=== PATIENT | female | born 1950 | race Caucasian/White ===

== ENCOUNTER 2016-10-20 17:37 | Emergency (ER) | payer OTHER ==
[~2016-10-20] VITALS: Ht 165.1 cm; Wt 71.4 kg
[~2016-10-20 17:37] MED LIST: ASPI325T45 PO; ATOR-22 PO; ATV/1 PO; CTP/1 PO; GLUC10007 PO; HYZ/10015 PO; LEVO25TA5 PO; MULT-506 PO; OMEG10007 PO; OXYC-57 PO; PARO1TAB29 PO
[2016-10-20 18:07] VITALS: TEMP 36.8; Ht 165.1 cm; Wt 71.4 kg
[2016-10-20] MEDS ORDERED: CYCLOBENZAPRINE HCL 5 MG TAB PO STA (19:39)
--- NOTE | 2016-10-20 19:48 | EMERGENCY ROOM VISIT NOTE ---
History Report prepared by Anders: Delma Valencia Under the Supervision of: Dr. Fidel Altamirano M.D. First contact with patient: 19:31 Chief Complaint: SWELLING TO EXTREMITY Stated Complaint: L ANKLE SWOLEN History of Present Illness The patient is a 66 year old female who presents to the Emergency Room with complaints of constant left foot swelling beginning 4 days ago. The patient states that she has been having issues with foot swelling over the summer that have worsened over the last 4 days. She reports that she takes a diuretic and is used to foot swelling but her left foot has been significantly worse. She notes that she does not wear compression socks. The patient complains of foot spasms. She states that she called her PCP and was told to come in for concern of DVT. Source of History: patient Onset: 4 days ago Position: foot (left) Quality: other (swelling) Timing: constant Note: Pt complains of foot spasms. Review of Systems See HPI for pertinent positives & negatives. A total of 10 systems reviewed and were otherwise negative. Past Medical & Surgical Medical Problems: (1) Alcohol Abuse-Unspec (2) Arterial Disease Nos (3) Carotid artery disease (4) Carotid Artery Occlusion W O Cerebral Infarction (5) Depression (6) Depressive Disorder Nec (7) Diverticulosis Colon (W/O Ment Of Hemorrhage) (8) Dyslipidemia (9) Gout (10) Gout Nos (11) History of colonic polyps (12) Hypertension (13) Hypertension Nos (14) Irritable Bowel Syndrome (15) Long-Term (Current) Use Of Aspirin (16) Tobacco Use Disorder Surgical Problems: (1) History of carotid endarterectomy (2) S/P carotid endarterectomy Family History No pertinent family history stated. Social History Smoking Status: Current Every Day Smoker Marital Status: Housing Status: lives with significant other Occupation Status: unemployed Current/Historical Medications Scheduled Aspirin (Aspirin), 1 TAB PO DAILY Atorvastatin (Lipitor), 20 MG PO HS Clonidine Hcl (Catapres), 0.1 MG PO BID Glucosamine Sulfate (Glucosamine), 1,000 MG PO BID Hctz/Losartan (Hyzaar 25MG/100MG), 1 TAB PO QAM Levothyroxine Sodium (Levothyroxine Sodium), 1 TAB PO QAM Multivitamin (Multivitamin), 1 TAB PO NOON Paroxetine (Paxil), 40 MG PO QAM Scheduled PRN Fish Oil ([place]-3), 1 CAP PO DAILY PRN Lorazepam (Ativan), 0.5-1 MG PO TID PRN Oxycodone/Acetaminophen 5MG/325MG (Percocet 5MG/325MG), 1-2 TABLETS PO Q4H PRN for Pain Oxycodone/Acetaminophen 5MG/325MG (Percocet 5MG/325MG), 1-2 TAB PO Q4H PRN for Pain Allergies Coded Allergies: Nickel (Unverified Allergy, Mild, Rash, itchy, 09/20/14) Physical Exam Vital Signs Date Time Temp Pulse Resp B/P (MAP) Pulse Ox O2 Delivery O2 Flow Rate FiO2 10/20/16 23:28 170/95 10/20/16 22:20 90 20 167/94 97 Room Air 10/20/16 20:30 92 18 166/91 99 Room Air 10/20/16 18:07 36.8 93 18 170/97 97 Room Air Physical Exam GENERAL: Patient is a healthy-appearing well-nourished female HEAD: Normocephalic atraumatic EYES: Ocular movements intact pupils equal and react to light OROPHARYNX mucous membranes are moist no exudates present no erythema or edema present NECK: Supple no nuchal rigidity CHEST: Good equal expansion LUNGS: Clear and equal to auscultation CARDIAC: Normal S1 and S2 ABDOMEN: Soft nontender no guarding BACK: No CVA tenderness EXTREMITIES: No pain upon palpation normal muscle strength in all groups no clubbing cyanosis. NEURO: Patient is following commands and answering questions appropriately. Alert and oriented x3 Cranial Nerves 2-12 grossly intact Medical Decision & Procedures ER Provider Diagnostic Interpretation: Radiology results as stated below per my review and radiologist interpretation: LEFT LOWER EXTREMITY VENOUS DOPPLER FINDINGS: There is normal compressibility, flow, and augmentation within the left lower extremity deep venous system. IMPRESSION: No DVT within the left lower extremity. Electronically signed by: Andre Hargrove M.D. 10/20/2016 10:03 PM Dictated Date/Time: 10/20/2016 10:02 PM LEFT ANKLE 3 VIEWS FINDINGS: There is no fracture or dislocation. Soft tissue swelling. No radiopaque foreign bodies. Small plantar heel spur. Calcification at the distal attachment of the Achilles tendon. IMPRESSION: No fractures. Soft tissue swelling. Electronically signed by: Andre Hargrove M.D. 10/20/2016 10:58 PM Dictated Date/Time: 10/20/2016 10:57 PM Laboratory Results Labs reviewed by ED physician. Medications Administered Medications (Trade) Dose Ordered Sig/Jennifer Route Start Time Stop Time Status Last Admin Dose Admin Cyclobenzaprine HCl (Flexeril Tab) 5 mg NOW STAT PO 10/20/16 19:39 10/20/16 19:41 DC 10/20/16 20:15 5 MG Oxycodone/ Acetaminophen (Percocet 5-325mg Tab) 1 tab NOW ONCE PO 10/20/16 22:15 10/20/16 22:16 DC 10/20/16 22:46 1 TAB Oxycodone/ Acetaminophen (Percocet 5/ 325MG Home Pack) 1 homepack UD ONCE PO 10/20/16 22:45 10/20/16 22:46 DC 10/20/16 23:25 1 HOMEPACK ED Course 1930: Past medical records reviewed. The patient was evaluated in room A4B. A complete history and physical examination was performed. 1938: Flexeril Tab 5mg PO. 2214: Oxycodone/Acetaminophen 1 tab PO. 2220: Dilaudid Inj 0.5mg IV, Solu-Medrol IV 60mg IV. 5: Oxycodone/Acetaminophen 1 homepack PO. 2303: Upon reexamination the patient is doing well. I discussed results and treatment plan with the patient. She verbalizes agreement and understanding. The patient is ready for discharge. Medical Decision Differential diagnosis: Etiologies such as DVT, musculoskeletal, infection, joint effusion, trauma, lymphedema, idiopathic, CHF, as well as others were entertained. This is a 66-year-old female who presents emergency department complaining of left ankle swelling. Using shared medical decision making with the patient the patient is concerned that she has a DVT in her left extremity. Based on this the patient was sent for an ultrasound which did not show any evidence of acute DVT. The patient was also given Flexeril with no improvement in her symptoms. After finding out that the patient did not have DVT patient and her family asked for further laboratory work however the patient then refused this. Her x- ray does not show any evidence of acute fracture dislocation. There is no evidence of cellulitis and the patient is afebrile. She does have a history of gout and it is possible that this is the whole issue. She was given Percocet for the pain in the emergency department and I recommended follow-up with orthopedic surgery. Patient and family were in agreement with the treatment plan. Medication Reconcilliation Current Medication List: was personally reviewed by me Blood Pressure Screening Patient's blood pressure: Elevated blood pressure Blood pressure disposition: Elevated BP felt to be situational Impression Primary Impression: Ankle pain Scribe Attestation The scribe's documentation has been prepared under my direction and personally reviewed by me in its entirety. I confirm that the note above accurately reflects all work, treatment, procedures, and medical decision making performed by me. Departure Information Dispostion Home / Self-Care Prescriptions Oxycodone/Acetaminophen 5MG/325MG (PERCOCET 5MG/325MG) Tab 1-2 TAB PO Q4H Y for Pain, #14 TAB Prov: Fidel Altamirano MD 10/20/16 Referrals Demetra Bowman D.O. (PCP) Forms HOME CARE DOCUMENTATION FORM, IMPORTANT VISIT INFORMATION, WORK / SCHOOL INSTRUCTIONS Patient Instructions ED Contusion Lower Ext, My [facility] Additional Instructions Follow up with DR Romero's office You were found to have an elevated blood pressure today (>120 sytolic or >90 diastolic). Per medicare guidelines, you need to follow up with this blood pressure screening with your Primary Care Physician (PCP). For a new PCP call [phone]. You received narcotic or benzodiazepene medication while in the emergency room today. Do not drive, operate heavy machinery, or drink alcohol under the influence of this medication. Take 600 mg Ibuprofen every 6 hours Take Percocet for breakthrough pain You have been examined and treated today on an emergency basis only. This is not a substitute for, or an effort to provide, complete comprehensive medical care. It is impossible to recognize and treat all injuries or illnesses in a single emergency department visit. It is therefore important that you follow up closely with Dr Edwards. Call as soon as possible for an appointment. Thank you for your time and consideration. I look forward to speaking with you again soon. Please don't hesitate to call us if you have any questions. Problem Qualifiers Primary Impression: Ankle pain Chronicity: acute Laterality: left Qualified Codes: M25.572 - Pain in left ankle and joints of left foot
--- NOTE | 2016-10-20 22:04 | DIAGNOSTIC IMAGING REPORT ---
LEFT LOWER EXTREMITY VENOUS DOPPLER HISTORY: Left leg swelling. COMPARISON STUDY: None. FINDINGS: There is normal compressibility, flow, and augmentation within the left lower extremity deep venous system. IMPRESSION: No DVT within the left lower extremity. Electronically signed by: Andre Hargrove M.D. 10/20/2016 10:03 PM Dictated Date/Time: 10/20/2016 10:02 PM
[2016-10-20] MEDS ORDERED: OXYCODONE/ACETAMINOPHEN 5-325 TAB PO ONE (22:15)
[2016-10-20 22:20] VITALS: PULSE 90; O2SAT 97
[2016-10-20] MEDS ORDERED: HYDROmorphone INJ 0.5 MG/0.5 ML SYR IV STA (22:21)
[2016-10-20] MEDS ORDERED: METHYLPREDNISOLONE 125 MG VIAL IV STA (22:21)
[2016-10-20] MEDS ORDERED: PERCOCET HOME PACK PO ONE (22:45)
[2016-10-20] MEDS ORDERED: OXYC-57 PO (22:50)
--- NOTE | 2016-10-20 22:59 | DIAGNOSTIC IMAGING REPORT ---
LEFT ANKLE 3 VIEWS HISTORY: Pt c/o left ankle pain COMPARISON: None. FINDINGS: There is no fracture or dislocation. Soft tissue swelling. No radiopaque foreign bodies. Small plantar heel spur. Calcification at the distal attachment of the Achilles tendon. IMPRESSION: No fractures. Soft tissue swelling. Electronically signed by: Andre Hargrove M.D. 10/20/2016 10:58 PM Dictated Date/Time: 10/20/2016 10:57 PM
[2016-10-20 23:28] VITALS: BP 170/95
== END 2016-10-20 23:29 | disposition home or self-care (01) ==
LOC: C.EDB 17:37 → C.EDA 23:29
DX: M25.571 Pain in right ankle and joints of right foot (principal); I10 Essential (primary) hypertension; E78.5 Hyperlipidemia, unspecified; K57.30 Diverticulosis of large intestine without perforation or abscess without bleeding; I25.10 Atherosclerotic heart disease of native coronary artery without angina pectoris; K58.9 Irritable bowel syndrome, unspecified; F32.9 Major depressive disorder, single episode, unspecified; M10.9 Gout, unspecified; F17.200 Nicotine dependence, unspecified, uncomplicated; Z86.010 Personal history of colon polyps; Z79.82 Long term (current) use of aspirin; Z79.899 Other long term (current) drug therapy; Z98.890 Other specified postprocedural states; Z91.09 Other allergy status, other than to drugs and biological substances

== ENCOUNTER 2018-11-15 18:39 | Inpatient (IN) ==
--- OUTSIDE RECORDS SUMMARY | 2018-11-15 18:42 | External Medical Summary | Continuity of Care Document ---
:1950 Author Name Michael M.DGaurang Address Unavailable Unavailable , Care Team Providers Name Role Phone Unavailable Unavailable Unavailable Jade MARTÍNEZ Unavailable [email or web address] Problems Asymptomatic Postmenopausal Status (V49.81) Colonoscopy (Fiberoptic) Screening Vaginitis (616.10) (N76.0) Hypertension (401.9) (I10) Postmenopausal bleeding (627.1) (N95.0) Carotid artery stenosis (433.10) (I65.29) Postmenopausal atrophic vaginitis (627.3) (N95.2) Arthritis (716.90) (M19.90) Tubular adenoma of colon (211.3) (D12.6) Hypercholesterolemia (272.0) (E78.00) Benign colonic polyp (211.3) (K63.5) Encounter for routine gynecological examination (V72.31) (Z0 1.419) Allergies and Adverse Reactions No Known Drug Allergies (Allergy) Medications Lipitor 20 MG Oral Tablet , M.D. Refills: 0 cloNIDine HCl - 0.1 MG Oral Tablet , M.D. Refills: 0 Hyzaar 100-25 MG Oral Tablet , M.D. Refills: 0 PARoxetine HCl - 40 MG Oral Tablet , M.D. Refills: 0 Lasix 20 MG Oral Tablet , M.D. Refills: 0 LORazepam TABS , M.D. Refills: 0 Premarin 0.625 MG/GM Vaginal Cream; Inse rt 1/4 of applicator of cream vaginally three evenings per week. Apply thin film externally on same evenings. MAURICIO Hansen Start: 12-Oct-2012 Quantity: 1 Refills: 1 Multiple Vitamins Oral Tablet , M.D. Refills: 0 Fish Oil CAPS , M.D. Refills: 0 Aspirin 325 MG Oral Tablet; TAKE 1 TABLET DAILY. , M.D. Refills: 0 Estrace 0.1 MG/GM Vaginal Cream; INSERT 1/4 APPLICATORFUL (1GRAM) VAGINALLY TWICE WEEKLY MAURICIO Hansen Start: 08-Oct-2012 Quantity: 1 Refills: 0 Azithromycin 500 MG Oral Tablet; Take both tablets now as a single dose. MAURICIO Hansen Start: 08-Oct-2012 Quantity: 2 Refills: 0 Procedures History of Tubal Ligation Status: Comple eldon History of Oral Surgery Tooth Extraction Status: Completed History of Complete Colonoscopy Status: Completed Immunizations Immunizations not documented Social History - Smoking Status Unknown if ever smoked Former smoker Plan of Treatment Planned Observations Planned Goals not documented Results No Known Results Results not documented
[2018-11-15] MEDS ORDERED: HydrALAZINE HCL 20 MG/ML VIAL IV STA (19:02)
[2018-11-15] MEDS ORDERED: SODIUM CHLORIDE 0.9% 1000ML 1,000 ML IV SCH (19:15)
[2018-11-15 19:17] LABS: Basophils # (auto) 0.04 K/uL (0-0.2); Basophils % (auto) 0.3 %; Eosinophils # (auto) 0.21 K/uL (0-0.5); Eosinophils % (auto) 1.6 %; Hematocrit (blood only) 44.4 % (37-47); Hemoglobin 15.9 g/dL (12.0-16.0); Immature Granulocytes # (auto) 0.05 K/uL (0.00-0.02); Immature Granulocytes % (auto) 0.4 %; Lymphocytes # (auto) 3.99 K/uL (1.2-3.4); Lymphocytes % (auto) 30.6 %; Mean Corpuscular Hemoglobin 34.5 pg (25-34); Mean Corpuscular Hgb Conc 35.8 g/dL (32-36); Mean Corpuscular Volume 96.3 fL (80-100); Mean Platelet Volume 9.6 fL (7.4-10.4); Monocytes # (auto) 1.51 K/uL (0.11-0.59); Monocytes % (auto) 11.6 %; Neutrophils # (auto) 7.24 K/uL (1.4-6.5); Neutrophils % (auto) 55.5 %; Platelet Count 409 K/uL (130-400); RDW Coefficient of Variation 13.5 % (11.5-14.5); Red Blood Count 4.61 M/uL (4.2-5.4); White Blood Count 13.04 K/uL (4.8-10.8)
--- NOTE | 2018-11-15 19:20 | CT Scan Report ---
CT head/brain wo con CLINICAL HISTORY: Strokelike symptoms COMPARISON STUDY: No previous studies for comparison. TECHNIQUE: Axial CT of the brain is performed from the vertex to the skull base. IV contrast was not administered for this examination. A dose lowering technique was utilized adhering to the principles of ALARA. CT DOSE: 537.48 mGy.cm FINDINGS: No intra or extra-axial mass lesions are visualized. There is no CT evidence of acute cortical infarc tion. There is no evidence of midline shift. There is no acute hemorrhage. No calvarial fractures ar e visualized. There are patchy white matter hypodensities likely on a small vessel basis. There is no evidence of pathologic ventricular dilatation. There is no evidence of acute sinusitis IMPRESSION: No acute intracranial findings Electronically signed by: Coy Barreto M.D. 11/15/2018 7:18 PM
[2018-11-15 19:27] LABS: INR 0.9 (0.9-1.1); Partial Thromboplastin Ratio 0.9; Partial Thromboplastin Time 25.5 Seconds (21.0-31.0); Prothrombin Time 9.4 Seconds (9.0-12.0)
[2018-11-15 19:33] LABS: Alanine Aminotransferase 19 U/L (12-78); Albumin Level 4.1 gm/dl (3.4-5.0); Aspartate Aminotransferase 16 U/L (15-37); BUN Creatinine Ratio 23.2 (10-20); Blood Urea Nitrogen 18 mg/dl (7-18); Calcium 9.8 mg/dl (8.5-10.1); Carbon Dioxide 25 mmol/L (21-32); Chloride 98 mmol/L (98-107); Creatinine Clr Calc Pharmacy 73.3 ml/min; Est GFR (African American) 94.1; Est GFR (Non-African American) 81.2; Glucose 96 mg/dl (70-99); Magnesium 2.2 mg/dl (1.8-2.4); Potassium 3.4 mmol/L (3.5-5.1); Sodium 133 mmol/L (136-145)
[2018-11-15 19:38] LABS: Alkaline Phosphatase 137 U/L (45-117); Bilirubin,Total 0.4 mg/dl (0.2-1); Globulin 4.1 gm/dl (2.5-4.0); Total Protein 8.2 gm/dl (6.4-8.2); Troponin I < 0.015 ng/ml (0-0.045)
[2018-11-15] MEDS ORDERED: LABETALOL HCL IV 5 MG/ML 20ML IV STA (20:07)
[2018-11-15] MEDS ORDERED: ALTEPLASE For Stroke IV STA (20:44)
[2018-11-15] MEDS ORDERED: ALTEPLASE BOLUS IV ONE (20:54)
[2018-11-15] MEDS ORDERED: ALTEPLASE, RECOMBINANT 62 MG in EMPTY BAG 0 ML IV ONE (20:55)
[2018-11-15] MEDS ORDERED: PRIMARY PLUMSET, PE LINED TUBING, 113 IN, NON-DEHP (2260-0500) IV ONE (20:55)
[2018-11-15] MEDS ORDERED: ACETAMINOPHEN 1,000 MG/100 ML VIAL IV STA (21:20)
[2018-11-15] MEDS ORDERED: OPTIRAY 320 125ml IV PRN (21:35)
--- NOTE | 2018-11-15 22:08 | CT Scan Report ---
CT angio neck with con CLINICAL HISTORY: Suspected acute stroke COMPARISON STUDY: July 2012 TECHNIQUE: CT angiography was performed from the aortic arch to the skull base. MIP imaging was perfo rmed. The patient was scanned in a dynamic helical fashion during intravenous administration of 117 c c of Optiray 320. A dose lowering technique was utilized adhering to the principles of ALARA. CT DOSE: Technique: CT angiogram of the carotid and vertebral arteries was obtained using intravenous contrast and 3-D reconstruction. NASCET criteria was utilized. Findings: The right carotid revealed atheromatous changes involving the bifurcation and proximal internal carot id artery without evidence of hemodynamic significant stenosis. There is no evidence of dissection. The left carotid revealed a small ulcerated plaque at the there is no evidence of dissection. Level o f the carotid bulb. There are mild atheromatous changes. There is no evidence of hemodynamic signific ant stenosis. There is no evidence of vertebral artery occlusion. There is no evidence of dissection. There are are as of mild vertebral narrowing due to bilateral facet joint arthropathy with secondary narrowing of t he foramen transversarium IMPRESSION: No evidence of hemodynamically significant carotid or vertebral artery stenosis. No evidence of disse ction. Electronically signed by: Coy Barreto M.D. 11/15/2018 10:06 PM
--- NOTE | 2018-11-15 22:11 | CT Scan Report ---
CT angio head w con CLINICAL HISTORY: Acute stroke TECHNIQUE: CT angiography of the head was performed in a dynamic helical fashion during intravenous a dministration of 117 cc of Optiray 320. MIP imaging was performed. A dose lowering technique was util ized adhering to the principles of ALARA. CT DOSE: 579.21 mGy.cm COMPARISON STUDY: Noncontrast head CT dated 11/15/2018 FINDINGS: There are no lesion suspicious for aneurysm. There are no major intracranial branch occlusi ons. The dural venous sinuses appear patent. IMPRESSION: No significant abnormalities identified. Electronically signed by: Coy Barreto M.D. 11/15/2018 10:10 PM
[2018-11-15] MEDS ORDERED: POTASSIUM CHLORIDE / WTR 10 MEQ/100 ML PLCT IV ONE (22:30)
--- NOTE | 2018-11-15 22:40 | Emergency Department Note ---
Entered by Darleen Suazo acting as a scribe for Kristine Zhong MD History of Present Illness General Chief complaint: Neuro Symptoms/Deficit Stated complaint: CVA SX Source: patient Mode of arrival: ambulatory Limitations: no limitations History of Present Illness Provider complaint: Stroke symptoms Onset (ago): hour(s) (around 1744 today) 1 Pain Consistency: + other (episode) Quality: + other (stroke symptoms) Associated symptoms: + headaches and + other (Additional symptoms: hand numbness, difficulty speaking, difficulty remembering. Denies: abdominal pain); no chest pain, no shortness of breath and no weakness Treatments prior to arrival: none The patient is a 68 year old female with a history of hypertension, dyslipidemia, CAD, gout, depression, colonic polyps, and a bilateral carotid e ndarterectomy who presents to the Emergency Room with complaints of an episode of stroke symptoms occurring around 1744 today. The patient reports that she returned home from shopping at [facility] and was putting groceries away when she dropped her cigarette and her hand went numb. She states that she then noticed difficulty speaking, and she notes that she could not express her cat's name or speak in a way that her could understand her. The patient currently complains of a headache, some difficulty remembering, and some persistent speech difficulty, but she denies any shortness of breath, chest pain, abdominal pain, and weakness. She reports that she went to her PCP earlier today and that there were no problems. She indicates that her blood pressure has been controlled recently. Home Medications Home Medications Medication Instructions Recorded Confirmed Type allopurinol 300 mg PO DAILY 11/15/18 11/15/18 History aspirin 325 mg PO DAILY 11/15/18 11/15/18 History atorvastatin 80 mg PO HS 11/15/18 11/15/18 History clonidine HCl 0.1 mg PO BID 11/15/18 11/15/18 History levothyroxine 50 mcg PO QAM 11/15/18 11/15/18 History paroxetine HCl 20 mg PO DAILY 11/15/18 11/15/18 History potassium chloride 10 meq PO DAILY 11/15/18 11/15/18 History Allergies Allergy/AdvReac Type Severity Reaction Status Date / Time nickel Allergy Mild Rash, itchy Unverified 11/15/18 19:55 Past Med/Surg History Medical History Hypertension (Chronic) Dyslipidemia (Chronic) Gout (Chronic) Carotid artery disease (Chronic) Depression (Chronic) History of colonic polyps (Chronic) S/P tubal ligation Surgical History History of carotid endarterectomy (Chronic) S/P wisdom tooth extraction Family History Mother Hypertension Dementia Dyslipidemia Father , age 70 of leukemia. 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 and A total of 10 systems reviewed and were otherwise negative Physical Exam Vital Signs Vital Signs - 24 hr 11/16/18 01:45 11/16/18 02:00 11/16/18 02:15 Pulse Rate 84 93 H 87 Pulse Rate from SpO2 Sensor 84 93 H 86 Respiratory Rate 20 21 24 Blood Pressure 140/63 149/82 H 152/73 H Blood Pressure Mean 88 104 99 Pulse Oximetry 97 94 96 Oxygen Delivery Method Nasal Cannula Nasal Cannula Nasal Cannula Oxygen Flow Rate 2 2 2 11/16/18 02:30 11/16/18 02:45 11/16/18 03:00 Pulse Rate 90 86 Pulse Rate from SpO2 Sensor 89 90 88 Respiratory Rate 24 20 24 Blood Pressure 129/91 132/68 145/64 H Blood Pressure Mean 103 89 91 Pulse Oximetry 96 94 98 Oxygen Delivery Method Nasal Cannula Nasal Cannula Nasal Cannula Oxygen Flow Rate 2 2 2 Vital signs reviewed. General: Generally well-appearing female, in no significant distress. HEENT: No scleral icterus, PERRLA, neck supple. Atraumatic. Cardiovascular: Regular rate and rhythm, no extra sounds. Pulmonary: Clear to auscultation bilaterally, normal work of breathing. Abdomen: Soft, nontender, nondistended, positive bowel sounds. Musculoskeletal: Atraumatic, no peripheral edema. Neurologic: Patient awake alert and oriented x 3, full strength in all 4 extrem ities. Cranial nerves 2 through 12 grossly intact. Subtle expressive aphasia/word finding difficulty. Ambulates without difficulty. No pronator drift. Intact finger to nose. Skin: Warm, dry, no rash Course 1842: At this time the patient was evaluated by the medical student, Makayla Rodriguez. The medical student's findings were discussed with me. We discussed a possible treatment plan and differential diagnoses for the patient. 1853: The patient was evaluated in room C11A, and a complete history and physical examination were performed. 2009: I checked on the patient and she is now stuttering and demonstrating some expressive aphasia. 2013: I reviewed the case with Dr. Quinonez - Loida Aldrich. Dr. Quinonez will evaluate the patient. 2023: The patient was moved to room B1 at this time. 2041: I reviewed the case with Dr. Quinonez again. 2201: I checked on the patient and she is feeling better but still complaining of some headache. She will receive some Tylenol. 2228: I reviewed the patient's case with Dr. Rosen - Merry. Dr. Rosen will evaluate the patient for further management. Reevaluation(s) Reevaluation #1: I reviewed the case with Dr. Quinonez - Loida Aldrich. Dr. Quinonez will evaluate the patient. Time: 20:14 Reevaluation #2: I reviewed the case with Dr. Quinonez again. Time: 20:42 Reevaluation #3: I reviewed the patient's case with Dr. Silas Sousa. Dr. Rosen will evaluate the patient for further management. Time: 22:28 Administered Medications Acetaminophen (Tylenol) 320 mg PO Q4H PRN PRN Reason: Pain Stop: 12/16/18 05:52 Last Admin: 11/16/18 15:18 Dose: 320 mg Documented by: [id number] Admin: 11/16/18 06:20 Dose: 320 mg Documented by: [id number] Allopurinol (Zyloprim) [address] Stop: 12/16/18 08:59 Last Admin: 11/16/18 09:57 Dose: 300 mg Documented by: [id number] Atorvastatin Calcium (Lipitor) [address] Stop: 12/16/18 20:59 Last Admin: 11/16/18 20:16 Dose: 80 mg Documented by: [id number] Nicardipine HCl 25 mg/ Sodium (Chloride) 250 mls @ 0 mls/hr IV .Q0M RD; P rotocol Stop: 12/15/18 20:59 Last Admin: 11/16/18 09:58 Dose: Not Given Documented by: [id number] Titration: 11/16/18 04:36 Dose: 0 mg/hr, 0 mls/hr Documented by: [id number] Titration: 11/16/18 02:42 Dose: 0 mg/hr, 0 mls/hr Documented by: [id number] Titration: 11/16/18 00:50 Dose: 2.5 mg/hr, 25 mls/hr Documented by: [id number] Titration: 11/15/18 21:45 Dose: 5 mg/hr, 50 mls/hr Documented by: [id number] Titration: 11/15/18 21:13 Dose: 7.5 mg/hr, 75 mls/hr Documented by: [id number] Admin: 11/15/18 21:08 Dose: 5 mg/hr, 50 mls/hr Documented by: [id number] Cosigned by: [id number] Ioversol (Optiray 320 125ml) 117 ml IV ONCE PRN PRN Reason: Interaction Checking Stop: 11/19/18 21:34 Last Admin: 11/15/18 21:37 Dose: 117 ml Documented by: [id number] Levothyroxine Sodium (Synthroid) 50 m[address] PO [address] Stop: 12/16/18 06:29 Last Admin: 11/16/18 06:21 Dose: 50 mcg Documented by: [id number] Paroxetine HCl (Paxil) [address] Stop: 12/16/18 08:59 Last Admin: 11/16/18 09:57 Dose: 20 mg Documented by: [id number] Potassium Chloride (Klor-Con M10) [address] Stop: 12/16/18 08:59 Last Admin: 11/16/18 11:37 Dose: 10 meq Documented by: [id number] Discontinued Medications Alteplase, Recombinant (Activase For Stroke) 1 ea IV NOW STA; Protocol Stop: 11/15/18 20:45 Last Admin: 11/15/18 23:16 Dose: Not Given Documented by: [id number] Clopidogrel Bisulfate (Plavix) 75 mg PO NOW ONE Stop: 11/16/18 21:30 Last Admin: 11/16/18 21:46 Dose: 75 mg Documented by: [id number] Enoxaparin Sodium (Lovenox) 40 mg SQ NOW ONE Stop: 11/16/18 21:30 Last Admin: 11/16/18 21:45 Dose: 40 mg Documented by: [id number] Hydralazine HCl (Hydralazine Hcl) 10 mg IV NOW STA Stop: 11/15/18 19:03 Last Admin: 11/15/18 19:22 Dose: 10 mg Documented by: [id number] Hydralazine HCl (Hydralazine Hcl) 10 mg IV NOW STA Stop: 11/16/18 15:52 Last Admin: 11/16/18 16:12 Dose: 10 mg Documented by: [id number] Sodium Chloride (Nss 1000ml) 1,000 mls @ 50 mls/hr IV .Q20H RD Stop: 12/15/18 19:14 Last Infusion: 11/16/18 11:20 Dose: 0 mls/hr Documented by: [id number] Admin: 11/15/18 19:20 Dose: 50 mls/hr Documented by: [id number] Alteplase, Recombinant 6.8 mg/ (Syringe) 6.8 mls @ 6.8 mls/min IV ONCE ONE Stop: 11/15/18 20:55 Last Admin: 11/15/18 21:03 Dose: 6.8 mls/min Documented by: [id number] Cosigned by: [id number] Alteplase, Recombinant 62 mg/ (EMPTY BAG) 62 mls @ 62 mls/hr IV ONCE ONE Stop: 11/15/18 20:56 Last Infusion: 11/15/18 22:15 Dose: 0 mls/hr Documented by: [id number] Cosigned by: [id number] Admin: 11/15/18 21:06 Dose: 62 mls/hr Documented by: [id number] Cosigned by: [id number] Acetaminophen (Ofirmev) 1,000 mg in 100 mls @ 400 mls/hr IV NOW STA Stop: 11/15/18 21:34 Last Infusion: 11/15/18 22:17 Dose: 0 mls/hr Documented by: [id number] Admin: 11/15/18 21:51 Dose: 400 mls/hr Documented by: [id number] Potassium Chloride (K Zane / Wtr) 10 meq in 100 mls @ 100 mls/hr IV ONE ONE Stop: 11/15/18 23:29 Last Infusion: 11/15/18 23:45 Dose: 0 mls/hr Documented by: [id number] Admin: 11/15/18 22:46 Dose: 100 mls/hr Documented by: [id number] Labetalol HCl (Normodyne) 10 mg IV NOW STA Stop: 11/15/18 20:08 Last Admin: 11/15/18 20:16 Dose: 10 mg Documented by: [id number] Cosigned by: [id number] Ondansetron HCl (Zofran) 4 mg IV NOW STA Stop: 11/15/18 23:21 Last Admin: 11/15/18 23:24 Dose: 4 mg Documented by: [id number] Potassium Chloride (Klor-Con M20) 40 meq PO NOW ONE Stop: 11/16/18 12:31 Last Admin: 11/16/18 14:14 Dose: 40 meq Documented by: [id number] Medical Decision Making Differential Diagnosis Differential Diagnosis includes but is not limited to ischemic Stroke, hemorrhagic stroke, bells palsy, mass, neoplasm, migraine headache, seizure, sub arachnoid hemorrhage, TIA, and transient global amnesia. Medical Records Attestation: I reviewed the patient's medical records. Home Medications Current Medication List: was personally reviewed by me Laboratory Data Attestation: I reviewed the patient's lab results. Result diagrams: 11/15/18 18:43 11/15/18 18:43 Lab Results 11/15/18 11/15/18 11/15/18 Range/Units 18:43 18:43 18:43 WBC 13.04 H (4.8-10.8) K/uL RBC 4.61 (4.2-5.4) M/uL Hgb 15.9 (12.0-16.0) g/dL Hct 44.4 (37-47) % MCV 96.3 (80-100) fL MCH 34.5 H (25-34) pg MCHC 35.8 (32-36) g/dL RDW Std Deviation 47.0 H (36.4-46.3) fL RDW Coeff of Becky 13.5 (11.5-14.5) % Plt Count 409 H (130-400) K/uL MPV 9.6 (7.4-10.4) fL Immature Gran % (Auto) 0.4 % Neut % (Auto) 55.5 % Lymph % (Auto) 30.6 % [place] % (Auto) 11.6 % Eos % (Auto) 1.6 % Baso % (Auto) 0.3 % Immature Gran # (Auto) 0.05 H (0.00-0.02) K/uL Neut # (Auto) 7.24 H (1.4-6.5) K/uL Lymph # (Auto) 3.99 H (1.2-3.4) K/uL [place] # (Auto) 1.51 H (0.11-0.59) K/uL Eos # (Auto) 0.21 (0-0.5) K/uL Baso # (Auto) 0.04 (0-0.2) K/uL PT 9.4 (9.0-12.0) Seconds INR 0.9 (0.9-1.1) APTT 25.5 (21.0-31.0) Seconds PTT Ratio 0.9 Sodium 133 L (136-145) mmol/L Potassium 3.4 L (3.5-5.1) mmol/L Chloride 98 (98-107) mmol/L Carbon Dioxide 25 (21-32) mmol/L Anion Gap 10.0 (3-11) BUN 18 (7-18) mg/dl Creatinine 0.76 (0.6-1.2) mg/dl Est Cr Clr Drug Dosing 73.3 ml/min Est GFR ( Amer) 94.1 Est GFR (Non-Af Amer) 81.2 BUN/Creatinine Ratio 23.2 H (10-20) Glucose 96 (70-99) mg/dl POC Glucose (70-99) Calcium 9.8 (8.5-10.1) mg/dl Magnesium 2.2 (1.8-2.4) mg/dl Total Bilirubin 0.4 (0.2-1) mg/dl AST 16 (15-37) U/L ALT 19 (12-78) U/L Alkaline Phosphatase 137 H (45-117) U/L Troponin I < 0.015 (0-0.045) ng/ml Total Protein 8.2 (6.4-8.2) gm/dl Albumin 4.1 (3.4-5.0) gm/dl Globulin 4.1 H (2.5-4.0) gm/dl Albumin/Globulin Ratio 1.0 (0.9-2) 11/15/18 Range/Units 19:25 WBC (4.8-10.8) K/uL RBC (4.2-5.4) M/uL Hgb (12.0-16.0) g/dL Hct (37-47) % MCV (80-100) fL MCH (25-34) pg MCHC (32-36) g/dL RDW Std Deviation (36.4-46.3) fL RDW Coeff of Becky (11.5-14.5) % Plt Count (130-400) K/uL MPV (7.4-10.4) fL Immature Gran % (Auto) % Neut % (Auto) % Lymph % (Auto) % [place] % (Auto) % Eos % (Auto) % Baso % (Auto) % Immature Gran # (Auto) (0.00-0.02) K/uL Neut # (Auto) (1.4-6.5) K/uL Lymph # (Auto) (1.2-3.4) K/uL [place] # (Auto) (0.11-0.59) K/uL Eos # (Auto) (0-0.5) K/uL Baso # (Auto) (0-0.2) K/uL PT (9.0-12.0) Seconds INR (0.9-1.1) APTT (21.0-31.0) Seconds PTT Ratio Sodium (136-145) mmol/L Potassium (3.5-5.1) mmol/L Chloride (98-107) mmol/L Carbon Dioxide (21-32) mmol/L Anion Gap (3-11) BUN (7-18) mg/dl Creatinine (0.6-1.2) mg/dl Est Cr Clr Drug Dosing ml/min Est GFR ( Amer) Est GFR (Non-Af Amer) BUN/Creatinine Ratio (10-20) Glucose (70-99) mg/dl POC Glucose 87 (70-99) Calcium (8.5-10.1) mg/dl Magnesium (1.8-2.4) mg/dl Total Bilirubin (0.2-1) mg/dl AST (15-37) U/L ALT (12-78) U/L Alkaline Phosphatase (45-117) U/L Troponin I (0-0.045) ng/ml Total Protein (6.4-8.2) gm/dl Albumin (3.4-5.0) gm/dl Globulin (2.5-4.0) gm/dl Albumin/Globulin Ratio (0.9-2) Imaging Data Radiologist's Impression: Radiology results as stated below per my review and the radiologist's interpretation: CT head/brain wo con CLINICAL HISTORY: Strokelike symptoms COMPARISON STUDY: No previous studies for comparison. TECHNIQUE: Axial CT of the brain is performed from the vertex to the skull base. IV contrast was not administered for this examination. A dose lowering technique was utilized adhering to the principles of ALARA. CT DOSE: 537.48 mGy.cm FINDINGS: No intra or extra-axial mass lesions are visualized. There is no CT evidence of acute cortical infarction. There is no evidence of midline shift. There is no acute hemorrhage. No calvarial fractures are visualized. There are patchy white matter hypodensities likely on a small vessel basis. There is no evidence of pathologic ventricular dilatation. There is no evidence of acute sinusitis IMPRESSION: No acute intracranial findings Electronically signed by: Coy Barreto M.D. 11/15/2018 7:[address] angio head w con CLINICAL HISTORY: Acute stroke TECHNIQUE: CT angiography of the head was performed in a dynamic helical fashion during intravenous administration of 117 cc of Optiray 320. MIP imaging was performed. A dose lowering technique was utilized adhering to the principles of ALARA. CT DOSE: 579.21 mGy.cm COMPARISON STUDY: Noncontrast head CT dated 11/15/2018 FINDINGS: There are no lesion suspicious for aneurysm. There are no major intracranial branch occlusions. The dural venous sinuses appear patent. IMPRESSION: No significant abnormalities identified. Electronically signed by: Coy Barreto M.D. 11/15/2018 10:[address] angio neck with con CLINICAL HISTORY: Suspected acute stroke COMPARISON STUDY: July 2012 TECHNIQUE: CT angiography was performed from the aortic arch to the skull base. MIP imaging was performed. The patient was scanned in a dynamic helical fashion during intravenous administration of 117 cc of Optiray 320. A dose lowering technique was utilized adhering to the principles of ALARA. CT DOSE: Technique: CT angiogram of the carotid and vertebral arteries was obtained using intravenous contrast and 3-D reconstruction. NASCET criteria was utilized. Findings: The right carotid revealed atheromatous changes involving the bifurcation and proximal internal carotid artery without evidence of hemodynamic significant stenosis. There is no evidence of dissection. The left carotid revealed a small ulcerated plaque at the there is no evidence of dissection. Level of the carotid bulb. There are mild atheromatous changes. There is no evidence of hemodynamic significant stenosis. There is no evidence of vertebral artery occlusion. There is no evidence of dissection. There are areas of mild vertebral narrowing due to bilateral facet joint arthropathy with secondary narrowing of the foramen transversarium IMPRESSION: No evidence of hemodynamically significant carotid or vertebral artery stenosis. No evidence of dissection. Electronically signed by: Coy Barreto M.D. 11/15/2018 10:06 PM ECG Data Attestation: I personally reviewed and interpreted this ECG as follows: Indication: other (neurological symptoms) Rate (beats per minute): 70 Rhythm: normal sinus Findings: + other (left atrial enlargement, previous inferior septal infarct); no acute ischemic change and no ectopy Blood Pressure Blood Pressure Findings: Elevated blood pressure Blood Pressure Disposition: further management by hospitalist LIBORIO Bond This patient was evaluated and appeared to be in no significant distress. Physical examination is as above. Patient seems to be having stuttering symptoms and on the recurrence in the emergency department a stroke alert was called. Patient was evaluated by Dr. Quinonez after a negative head CT. TPA was advised given the patient's persistent a aphasia. Patient was complaining of a headache and was given IV Tylenol. Her marked hypertension was initially treated with a dose of IV hydralazine 10 mg with a follow-up IV labetalol 10 mg. Patient's blood pressure was near 180 systolic at this point. IV Cardene drip was initiated to control her blood pressure during TPA administration. Patient was sent to CAT scan for a CT angiogram of the head and neck which is essentially negative for acute findings. Contact with Dr. Quinonez was made once again. He has recommended inpatient admission at [facility] for further care. Patient and family were updated regarding the findings and care plan. Dr. Valencia of the hospitalist service was consulted and will evaluate the patient for admission and further management. Impression & Plan Stroke, Hypertension, Tobacco dependence due to cigarettes Critical Care Time Critical Care Time: Yes Total Critical Care Time: 120 I have personally spent 120 minutes of critical care time in the direct kenia gement of this patient. This includes bedside care, interpretation of diagnostic studies, and testing, discussion with consultants, patient, and family members, and other required patient management activities. This 120 minutes is in excess of all separately billable procedures. Discharge Plan Visit Data *Final* Discharge Date/Time: 11/16/18 03:38 Chief Complaint: Neuro Symptoms/Deficit Stated Complaint: CVA SX ED Provider: Kristine Zhong Discharge Problem: Stroke, Hypertension, Tobacco dependence due to cigarettes Patient Disposition: Admitted As Inpatient Discharge Instructions Interventions: ED Discharge Assessment Last Done: 11/16/18 03:38 Discharge Problem: Stroke Qualifiers: CVA mechanism: unspecified Qualified Code(s): I63.9 - Cerebral infarction, unsp ecified Hypertension Qualifiers: Hypertension type: unspecified Qualified Code(s): I10 - Essential (primary) hy pertension The scribe's documentation has been prepared under my direction and personally reviewed by me in its entirety. I confirm that the note above accurately reflects all work, treatment, procedures, and medical decision making performed by me.
--- NOTE | 2018-11-15 23:09 | XRay Report ---
XR chest 1V portable CLINICAL HISTORY: tachypnea COMPARISON STUDY: 10/21/2012 FINDINGS: The cardiac and mediastinal contours are normal. There is no evidence of focal pulmonary co nsolidation. There is no evidence of failure. No pleural effusions are visualized.[ IMPRESSION: No active disease in the chest. Electronically signed by: Coy Barreto M.D. 11/15/2018 11:08 PM
[2018-11-15] MEDS ORDERED: ONDANSETRON INJ 2 MG/ML 2 ML VIAL IV STA (23:20)
[2018-11-16] MEDS ORDERED: PHARMACIST DISCHARGE MED REC CONSULT PRN (03:09)
--- NOTE | 2018-11-16 03:17 | History & Physical Report ---
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 Continue supportive care Currently patient has no weakness, has no slurred speech in my opinion, slightly distracted and slightly foggy but able to answer all questions appropriately. Hold off pharmacologic DVT prophylaxis due to TPA Can start pharmacologic DVT prophylaxis when possible based on TPA protocol (2) Hypertension: Retention present on admission with possible hypertensive crisis Could be due to reflex to increase brain perfusion Started on nicardipine drip with parameters 1 40-1 60 Avoid hypotension (3) Carotid artery disease: Status post and carotid artery (4) Depression: Stable continue home meds (5) Tobacco abuse: Counseled regarding tobacco History of Present Illness 68-year-old female with past medical history of dyslipidemia, CAD, gout, depression, essential hypertension and bilateral carotid endarterectomy who was in her regular state of health, currently still smoking. [facility], came back home at home she was smoking a cigarette and then suddenly her hand got numb and the cigarette fell from her hand she also felt numbness on the right side of her face and she was unable to speak coherently or express herself. She was aware of all of this though and she said that she was trying to tell her to call 911 that something is wrong but she could not. Finally patient came to the ED was found to have systolic blood pressure more than 200. Patient mentioned that she is on clonidine at home and hydrochlorothiazide, recently she was taken off her hydrochlorothiazide because her blood pressure was well controlled. Last time clonidine was taken the night before admission. Telemetry neuro was consulted recommended TPA, status post TPA patient mental status improved and she was started on nicardipine drip. Primary Care Provider: Demetra Bowman DO Allergies Allergy/AdvReac Type Severity Reaction Status Date / Time nickel Allergy Mild Rash, itchy Unverified 11/15/18 19:55 Home Medications Home Medications Medication Instructions Recorded Confirmed Type allopurinol 300 mg PO DAILY 11/15/18 11/15/18 History aspirin 325 mg PO DAILY 11/15/18 11/15/18 History atorvastatin 80 mg PO HS 11/15/18 11/15/18 History clonidine HCl 0.1 mg PO BID 11/15/18 11/15/18 History levothyroxine 50 mcg PO QAM 11/15/18 11/15/18 History paroxetine HCl 20 mg PO DAILY 11/15/18 11/15/18 History potassium chloride 10 meq PO DAILY 11/15/18 11/15/18 History Past Med/Surg History Medical History Hypertension (Chronic) Dyslipidemia (Chronic) Gout (Chronic) Carotid artery disease (Chronic) Depression (Chronic) History of colonic polyps (Chronic) Surgical History History of carotid endarterectomy (Chronic) Social History Preferred Language: [place] marital status: current occupational status: retired Feels Safe at Home: Yes Smoking Status: Current every day smoker Review of Systems Review of Systems: Review of system Constitutional: No fever / no chills / no sweats / no weakness / no fatigue Eyes: no blurring of vision / no eye pain / no discharge / no redness ENT: no hearing loss / no epistaxis /no swallowing problems Respiratory: no cough / no wheezing / no SOB / no hemoptysis Cardiovascular: no Chest pain / no lower extremity edema / no palpitation Abdomen: no pain / no nausea / no vomiting / no constipation Musculoskeletal: no joint pain / no muscle pain / no joint swelling Genitourinary: no dysuria / no incontinence / no urinary retention Neurologic: Right-sided numbness, right hand number Psychiatric: no depression symptoms / no anxiety / no insomnia Endocrine: no excessive thirst / no excessive urination Hematologic: no abnormal bleeding / no bruising / no LN swelling Skin: No rash / no pallor Physical Exam Physical Exam: Physical examination General patient appears to be comfortable, not in acute distress HEENT: Atraumatic , normocephalic /no jaundice /no pallor /anicteric /no dry mucous membrane /normal external ear inspection Neck: Supple /no swelling /central trach Heart: S1/S2 normal/regular rate and rhythm/no gallop /no rub /no murmur Lungs: Clear to auscultation bilaterally/normal chest with expansion/no rhonchi/no rales/no wheezing/no use of accessory muscles of respiration Abdomen: Soft/nontender/no guarding/no rebound/no organomegaly/no pulsatile mass Musculoskeletal: No swelling/no edema/no tenderness/normal range of motion Neuro exam: Slightly forgetful wildland trying to tell her story but awake alert oriented 3/cranial nerves II through XII appear to be intact/sensation intact/moves all extremities/no abnormal movements, no weakness detected Psychiatric evaluation: No depressed mood/normal affect Skin: No rash on exposed skin area/no erythema Extremity: Normal pulse/no pitting edema/no clubbing or cyanosis Results & Data Vital Signs (Past 12 Hours) Vital Signs Temp Pulse Pulse Resp BP BP Pulse Ox 11/16/18 03:00 86 24 145/64 H 98 11/16/18 02:45 20 132/68 94 11/16/18 02:30 90 24 129/91 96 11/16/18 02:15 87 24 152/73 H 96 11/16/18 02:00 93 H 21 149/82 H 94 11/16/18 01:45 84 20 140/63 97 11/16/18 01:30 83 23 142/68 H 96 11/16/18 01:15 82 24 143/68 H 96 11/16/18 01:00 82 24 147/67 H 95 11/16/18 00:52 89 L 11/16/18 00:45 83 23 141/80 H 88 L 11/16/18 00:30 82 23 151/67 H 93 11/16/18 00:15 79 24 149/75 H 92 11/16/18 00:00 81 25 H 141/72 H 93 11/15/18 23:45 84 22 131/71 92 11/15/18 23:30 82 18 155/65 H 93 11/15/18 23:15 80 24 150/69 H 96 11/15/18 23:01 87 23 173/103 H 97 11/15/18 23:00 85 16 98 11/15/18 22:45 79 22 163/70 H 95 11/15/18 22:30 82 19 175/78 H 96 11/15/18 22:15 81 23 167/74 H 97 11/15/18 22:05 84 27 H 97 11/15/18 22:00 86 28 H 181/74 H 97 11/15/18 21:57 83 32 H 97 11/15/18 21:56 85 22 175/73 H 97 11/15/18 21:45 83 24 166/70 H 96 11/15/18 21:43 86 17 11/15/18 21:35 85 18 158/64 H 96 11/15/18 21:20 86 20 166/61 H 97 11/15/18 21:15 81 22 176/79 H 98 11/15/18 21:13 77 23 185/96 H 97 11/15/18 21:06 77 17 192/78 H 97 11/15/18 21:01 80 16 178/98 H 98 11/15/18 21:00 80 20 97 11/15/18 20:47 77 27 H 187/89 H 96 11/15/18 20:45 75 36 H 173/79 H 96 11/15/18 20:32 77 19 193/93 H 98 11/15/18 20:30 74 19 193/93 H 98 11/15/18 20:26 75 20 170/81 H 96 11/15/18 20:18 82 18 99 11/15/18 20:06 79 24 208/102 H 11/15/18 20:05 84 19 83 L 11/15/18 20:04 83 19 235/98 H 99 11/15/18 19:45 79 17 186/108 H 99 11/15/18 19:30 92 H 18 201/96 H 99 11/15/18 19:17 71 22 97 11/15/18 19:16 70 25 H 216/96 H 97 11/15/18 19:01 75 17 238/95 H 97 11/15/18 18:57 79 26 H 238/108 H 9 L 11/15/18 18:45 79 20 190/109 H 100 11/15/18 18:34 36.8 C 74 19 190/109 H 96 Code Status & VTE Plan VTE Prophylaxis Plan VTE Prophylaxis will be ordered: No PG Care Time/CCT Total # of Minutes Spent Total Time Spent with Patient: 35 minutes total time spent is greater than 50% in coordination of care (as documented) at patient's floor/unit and/or counseling patient/family discussion of care with nursing staff (1) Stroke CVA mechanism: unspecified Qualified Code(s): I63.9 - Cerebral infarction, unspecified (2) Hypertension Hypertension type: unspecified Qualified Code(s): I10 - Essential (primary) hypertension
--- NOTE | 2018-11-16 04:44 | Critical Care Consultation ---
Date of Consultation November 16, 2018 Assessment & Plan (1) Stroke: Reason Critically Ill: 68-year-old female that presents to the ICU following TPA administration at 11/16 Neuro - [facility] ICU: Negative Strokethe patient experienced right facial numbness and expressive aphasia -CT head without contrast was negative and TPA administered at 2102 on 11/16 -CTA head negative, CTA neck consistent with post bilateral endarterectomy, also found to have small ulcerative plaque in the left carotid -Follow-up MRI -Post TPA 24-hour protocol -Follow-up CT head 24 hours post administration -Neurology consulted, follow-up recommendations -Follow-up lipid profile -Speech, PT, OT -We will hold daily aspirin for 24 hours and continue, for to neurology for need for Plavix Cardiac - HTNHome holding home dose clonidine, will restart when appropriate -Managing with nicardipine in acute phase HLDcontinue statin Respiratory - Maintaining oxygen saturation on room air Encourage cessation and smoke GI - N.p.o. for now RENAL/LYTES - Electrolytes within normal limits, monitor and replete as necessary - Strict I's and O's ENDO - History of TSH, continue Synthroid ICU hyperglycemic protocol HEME - H&H stable, monitor ID - No indication for infectious process at this time LINES/IV ACCESS - Peripheral IVs DVT PROPHYLAXIS - SCDs, holding anticoagulation following TPA administration I have personally spent 35 minutes of critical care time in the direct management of this patient. This is a life/limb threatening event. This includes time spent evaluating patient, direct bedside care, chart review, placing orders, interpretation of diagnostic studies, discussion with consultants, patient, and family members, as well as other required patient management activities. This time is exclusive of all separately billable procedures, and teaching time and separate from and in addition to any other critical care service time. Thank you for allowing us to participate in the care of this patient. Please refer to my attending physician's documentation for any further recommendations. (2) Hypertension: (3) Carotid artery disease: (4) Dyslipidemia: (5) Gout: History of Present Illness Attending Physician: Lucho Gutierrez MD History of Present Illness Mrs. Messina is a 68-year-old female with past medical history of bilateral carotid endarterectomy, CAD, HLD, HTN, gout, smoking who presented to the emergency department after experiencing numbness on the right side of her face and expressive aphasia at approximately 1730 yesterday afternoon. Code stroke was initiated and patient was taken for CT Noncon which was negative. Initial NIHSS was 1, however patient experienced worsening of exam and decision was made to administer TPA. CTA of the head neck was obtained which showed small ulcerated plaque in the left carotid without evidence of dissection. MRI is pending. Patient was also placed on nicardipine drip for hypertension with systolic in the 200s. Patient to remain in ICU for 24 hours post TPA administration and management of bicarbonate drip. Currently patient denies headache, dizziness, syncope, changes in speech, changes in vision, weakness or numbness. She denies chest pain, shortness of breath, palpitations, nausea or vomiting, abdominal pain, or diarrhea. Allergies Allergy/AdvReac Type Severity Reaction Status Date / Time nickel Allergy Mild Rash, itchy Unverified 11/15/18 19:55 Home Medications Home Medications Medication Instructions Recorded Confirmed Type allopurinol 300 mg PO DAILY 11/15/18 11/15/18 History aspirin 325 mg PO DAILY 11/15/18 11/15/18 History atorvastatin 80 mg PO HS 11/15/18 11/15/18 History clonidine HCl 0.1 mg PO BID 11/15/18 11/15/18 History levothyroxine 50 mcg PO QAM 11/15/18 11/15/18 History paroxetine HCl 20 mg PO DAILY 11/15/18 11/15/18 History potassium chloride 10 meq PO DAILY 11/15/18 11/15/18 History Patient History Medical History Hypertension (Chronic) Dyslipidemia (Chronic) Gout (Chronic) Carotid artery disease (Chronic) Depression (Chronic) History of colonic polyps (Chronic) Surgical History History of carotid endarterectomy (Chronic) Social History Preferred Language: Gabonese Communication Ability: Effective 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 Beliefs That Will Affect Care: None marital status: Current Living Situation: Spouse current occupational status: retired Feels Safe at Home: Yes Smoking Status: Current every day smoker Tobacco Type: cigarettes ; Second Hand Exposure: Yes ; Hx Alcohol Use: Yes Alcohol type: beer Hx Substance Use: No Review of Systems Review of Systems: All systems reviewed & are unremarkable except as noted in HPI & below Physical Exam Constitutional: WD/WN, vitals as above Eyes: PERRL, conjunctivae normal, anicteric sclerae ENMT: external ear and nose normal, oropharynx normal Neck: trachea midline, no thyromegaly Respiratory: normal respiratory effort, lungs clear to auscultation Cardiovascular: RRR, no murmur, no edema Heart Sounds: normal S1 and normal S2 Gastrointestinal (Abdomen): normal bowel sounds, soft, nontender, no hepatosplenomegaly Musculoskeletal: no cyanosis or clubbing, extremities motor strength 5/5 Skin: no rashes, warm and dry Neurologic: PERRL, EOMI, accommodation nl, no face palsy, no dysarthria CN's II-XI intact bilaterally Psychiatric: A+Ox3, euthymic affect Results & Data Vital Signs (Past 12 Hours) Vital Signs Temp Pulse Pulse Resp BP BP Pulse Ox 11/16/18 04:00 36.7 C 86 20 167/71 H 99 11/16/18 03:30 83 22 134/63 96 11/16/18 03:15 88 24 126/51 L 96 11/16/18 03:00 86 24 145/64 H 98 11/16/18 02:45 20 132/68 94 11/16/18 02:30 90 24 129/91 96 11/16/18 02:15 87 24 152/73 H 96 11/16/18 02:00 93 H 21 149/82 H 94 11/16/18 01:45 84 20 140/63 97 11/16/18 01:30 83 23 142/68 H 96 11/16/18 01:15 82 24 143/68 H 96 11/16/18 01:00 82 24 147/67 H 95 11/16/18 00:52 89 L 11/16/18 00:45 83 23 141/80 H 88 L 11/16/18 00:30 82 23 151/67 H 93 11/16/18 00:15 79 24 149/75 H 92 11/16/18 00:00 81 25 H 141/72 H 93 11/15/18 23:45 84 22 131/71 92 11/15/18 23:30 82 18 155/65 H 93 11/15/18 23:15 80 24 150/69 H 96 11/15/18 23:01 87 23 173/103 H 97 11/15/18 23:00 85 16 98 11/15/18 22:45 79 22 163/70 H 95 11/15/18 22:30 82 19 175/78 H 96 11/15/18 22:15 81 23 167/74 H 97 11/15/18 22:05 84 27 H 97 11/15/18 22:00 86 28 H 181/74 H 97 11/15/18 21:57 83 32 H 97 11/15/18 21:56 85 22 175/73 H 97 11/15/18 21:45 83 24 166/70 H 96 11/15/18 21:43 86 17 11/15/18 21:35 85 18 158/64 H 96 11/15/18 21:20 86 20 166/61 H 97 11/15/18 21:15 81 22 176/79 H 98 11/15/18 21:13 77 23 185/96 H 97 11/15/18 21:06 77 17 192/78 H 97 11/15/18 21:01 80 16 178/98 H 98 11/15/18 21:00 80 20 97 11/15/18 20:47 77 27 H 187/89 H 96 11/15/18 20:45 75 36 H 173/79 H 96 11/15/18 20:32 77 19 193/93 H 98 11/15/18 20:30 74 19 193/93 H 98 11/15/18 20:26 75 20 170/81 H 96 11/15/18 20:18 82 18 99 11/15/18 20:06 79 24 208/102 H 11/15/18 20:05 84 19 83 L 11/15/18 20:04 83 19 235/98 H 99 11/15/18 19:45 79 17 186/108 H 99 11/15/18 19:30 92 H 18 201/96 H 99 11/15/18 19:17 71 22 97 11/15/18 19:16 70 25 H 216/96 H 97 11/15/18 19:01 75 17 238/95 H 97 11/15/18 18:57 79 26 H 238/108 H 9 L 11/15/18 18:45 79 20 190/109 H 100 11/15/18 18:34 36.8 C 74 19 190/109 H 96 PG Care Time/CCT Total # of Minutes Spent Total Time Spent with Patient: Total time spent is greater than 50% in coordination of care (as documented) at patient's floor/unit and/or counseling patient: Critical Care Time: Yes Total Critical Care Time: 35 (1) Hypertension Hypertension type: unspecified Qualified Code(s): I10 - Essential (primary) hypertension (2) Stroke CVA mechanism: unspecified Qualified Code(s): I63.9 - Cerebral infarction, unspecified
[2018-11-16] MEDS: ACETAMINOPHEN SOLN 325 MG/10.15 ML UDC PO PRN ×2 (06:20→15:18)
[2018-11-16] MEDS: LEVOTHYROXINE SODIUM 50 MCG TABLET PO SCH (06:21)
[2018-11-16 06:58] LABS: Chol HDL Ratio 3; Cholesterol 193 mg/dl (0-200); HDL Cholesterol 71 mg/dl; LDL Cholesterol Calculated 100 mg/dl; Triglycerides 108 mg/dl (0-150); VLDL Cholesterol 22 mg/dl
--- NOTE | 2018-11-16 07:25 | Magnetic Resonance Report ---
Brain MRI WITHOUT CONTRAST HISTORY: Left facial numbness. TECHNIQUE: Multiplanar multisequence MRI of the brain was performed without the use of contrast. COMPARISON STUDY: Head CT 11/15/2018. FINDINGS: There is no mass, hematoma, midline shift, or acute infarct. The paranasal sinuses are saad r. The mastoid air cells are clear. The ventricles and sulci demonstrate mild age-related involutiona l changes. Scattered foci of T2 hyperintensity seen within the periventricular and subcortical white matter are nonspecific but suggestive of mild microvascular ischemic changes. The major vascular flow voids at the skull base are well-maintained. Mild motion artifact. IMPRESSION: Mild motion artifact. No definite acute intracranial abnormality. Scattered foci of T2 hyperintensity seen within the periventricular and subcortical white matter are nonspecific but favor microvascular ischemic change. Electronically signed by: Andre Hargrove M.D. 11/16/2018 7:24 AM
--- NOTE | 2018-11-16 08:05 | Hospitalist Progress Note ---
Date of Service November 16, 2018 Assessment & Plan (1) TIA (transient ischemic attack): TIA vs. aborted stroke vs. hypertensive crisis Day 2 order set. TTE Plavix to start after CT head ruled out hemorrhagic conversion. Lovenox for VTE prophylaxis to start after Q24H tPA CT head r/o hemorrhage. BP management as below. (2) Hypertension: Aim sBP < 180. dBP <105 given tPA administration, MAP 95-100 as per neurology recommendations. Defer choice of antihypertensives to ICU. Possible hypertensive crisis on admission Avoid hypotension (3) Carotid artery disease: Status post and carotid artery (4) Depression: Stable continue home meds (5) Tobacco abuse: Counseled regarding tobacco cessation. Patient wishes to discuss Chantix with PCP at follow up appointment. Unable to take patch due to hives. Will defer gum/lozenges for 24 hours as no cravings at present. (6) Alcohol use disorder: 6-8 beers/day. No prior withdrawal symptoms after stopping for 3 days. Monitor for alcohol withdrawal. (7) DVT prophylaxis: SCDs. Defer chemoprophylaxis pending repeat CT head Subjective Patient reports back to her baseline. Denies any ongoing visual, hearing, speech, extremity weakness or change in sensation. Re-discussed history with patient which matches H&P. Sudden onset right arm weakness, right forearm and hand numbness, right facial numbness and expressive dysphasia. Review of Systems Review of Systems: All systems reviewed & are unremarkable except as noted in HPI & below Physical Exam Constitutional: WD/WN, vitals as above Eyes: PERRL, conjunctivae normal, anicteric sclerae normal visual shelby by confrontation and EOM intact bilaterally ENMT: external ear and nose normal, oropharynx normal Neck: normal visual inspection (scars from prior b/l CEA well healed) and trachea midline Respiratory: normal respiratory effort, lungs clear to auscultation Cardiovascular: RRR, no murmur, no edema Gastrointestinal (Abdomen): normal bowel sounds, soft, nontender, no hepatosplenomegaly Musculoskeletal: no cyanosis or clubbing, extremities motor strength 5/5 Skin: no rashes, warm and dry Neurologic: normal touch/pain/proprioception, CN's II-XI intact bilaterally and awake; no focal motor deficits Speech / Cognition: normal speech, no expressive aphasia, no receptive aphasia and normal cognition Motor/Sensory: no tremor, normal movement and no pronator drift Coordination: normal [id number] test Psychiatric: A+Ox3, euthymic affect Results & Data Vital Signs (Past 12 Hours) Vital Signs Temp Pulse Pulse Resp BP BP Pulse Ox 11/16/18 07:00 78 17 132/68 93 11/16/18 06:45 85 21 92 11/16/18 06:30 79 24 148/67 H 93 11/16/18 06:00 82 21 153/73 H 94 11/16/18 05:30 78 24 170/90 H 96 11/16/18 05:01 82 37 H 169/71 H 93 11/16/18 04:35 85 22 163/79 H 94 11/16/18 04:24 99.5 F 84 22 167/71 H 98 11/16/18 04:00 98.1 F 86 20 167/71 H 99 11/16/18 03:30 83 22 134/63 96 11/16/18 03:15 88 24 126/51 L 96 11/16/18 03:00 86 24 145/64 H 98 11/16/18 02:45 20 132/68 94 11/16/18 02:30 90 24 129/91 96 11/16/18 02:15 87 24 152/73 H 96 11/16/18 02:00 93 H 21 149/82 H 94 11/16/18 01:45 84 20 140/63 97 11/16/18 01:30 83 23 142/68 H 96 11/16/18 01:15 82 24 143/68 H 96 11/16/18 01:00 82 24 147/67 H 95 11/16/18 00:52 89 L 11/16/18 00:45 83 23 141/80 H 88 L 11/16/18 00:30 82 23 151/67 H 93 11/16/18 00:15 79 24 149/75 H 92 11/16/18 00:00 81 25 H 141/72 H 93 11/15/18 23:45 84 22 131/71 92 11/15/18 23:30 82 18 155/65 H 93 11/15/18 23:15 80 24 150/69 H 96 11/15/18 23:01 87 23 173/103 H 97 11/15/18 23:00 85 16 98 11/15/18 22:45 79 22 163/70 H 95 11/15/18 22:30 82 19 175/78 H 96 11/15/18 22:15 81 23 167/74 H 97 11/15/18 22:05 84 27 H 97 11/15/18 22:00 86 28 H 181/74 H 97 11/15/18 21:57 83 32 H 97 11/15/18 21:56 85 22 175/73 H 97 11/15/18 21:45 83 24 166/70 H 96 11/15/18 21:43 86 17 11/15/18 21:35 85 18 158/64 H 96 11/15/18 21:20 86 20 166/61 H 97 11/15/18 21:15 81 22 176/79 H 98 11/15/18 21:13 77 23 185/96 H 97 11/15/18 21:06 77 17 192/78 H 97 11/15/18 21:01 80 16 178/98 H 98 11/15/18 21:00 80 20 97 11/15/18 20:47 77 27 H 187/89 H 96 11/15/18 20:45 75 36 H 173/79 H 96 11/15/18 20:32 77 19 193/93 H 98 11/15/18 20:30 74 19 193/93 H 98 11/15/18 20:26 75 20 170/81 H 96 11/15/18 20:18 82 18 99 11/15/18 20:06 79 24 208/102 H 11/15/18 20:05 84 19 83 L 11/15/18 20:04 83 19 235/98 H 99 PG Care Time/CCT Total # of Minutes Spent Total Time Spent with Patient: Total time spent is greater than 50% in coordination of care (as documented) at patient's floor/unit and/or counseling patient: (1) Hypertension Hypertension type: unspecified Qualified Code(s): I10 - Essential (primary) hypertension
--- NOTE | 2018-11-16 08:55 | Neurology Consultation ---
Date of Consultation November 16, 2018 Assessment & Plan (1) TIA (transient ischemic attack): (2) Expressive aphasia: (3) Headache: (4) Hypertension: (5) Depression: The patient suffered an episode of expressive aphasia with right face and hand numbness on November 15. She was given tPA for mild expressive aphasia. Today she is asymptomatic with an NIH Stroke Scale of 0. She has a very mild headache of a nonspecific nature. Although she has post bilateral carotid endarterectomy CT angiography of the head neck were unremarkable with no significant stenoses or anomalies of vessels. MRI of the brain showed no stroke and only minimal old small vessel ischemic disease. Blood pressure was markedly elevated on admission. Today, fortunately, it is improved. Etiology of her event could be TIA (with or without help from the tPA). In addition severe hypertension could focal neurologic findings as well, likely from cerebral vasospasm. Overall, she is improved. She has a history of depression which is stable. She is on paroxetine. She has a heavy cigarette smoker and has a history of dyslipidemia which as to her stroke risk. Finally, she is a heavy alcohol user of chronically over time. Recommendations 1. Switch aspirin to clopidogrel 75 milligrams daily. 2. Control blood pressure as you are doing aiming for a mean arterial pressure of 95-100. 3. She has a high dose statin candidate and can continue atorvastatin 80 milligrams daily. 4. Discontinue cigarette smoking. 5. Discontinue all alcohol use and monitor for withdrawal. 6. Day 2 tPA protocol and order set 7. Echocardiogram Overall, I spent a total of 120 minutes with this case including review of records, review of MRI films, direct evaluation the patient at bedside, and discussion of the case with the patient bedside, her nurse, and Dr. Nolan, including differential diagnosis and treatment options. History of Present Illness Reason for Consultation: Patient is a 68-year-old, who I was asked to see at the request of Dr. Manuel Gutierrez, for neurologic consultation regarding TIA versus stroke. Requesting Physician: Dr. Suzy Gutierrez Attending Physician: Andre Nolan MD History of Present Illness Patient has a history of hypertension, dyslipidemia, coronary artery disease, gout, depression, and osteoarthritis. She has post right carotid endarterectomy in 2006 left carotid endarterectomy in September of 2012. She has been on a full aspirin tablet daily for years. The patient has been under some stress recently, mostly financial. Patient has been drinking anywhere from 5-8 beers per day for decades. The longer she has gone without drinking alcohol in the last year is about 3 days. She says she does not get withdrawal symptoms or shakiness if she does not drink. She smokes 1 and half packs of cigarettes per day for several years. She awoke in the morning of December 15 feeling well. She had coffee and a shower and a normal morning. She visited her primary care physician, Dr. Armendariz, in the early afternoon. Everything was fine and she said her blood pressure was good (118/72 at 1309). She ate lunch and then went to [employer]. She feels that she got home somewhere around 5 o'clock in the afternoon. After unloading her purchases she had to come in and sit down. She was smoking a cigarette but but noticed that she dropped her cigarettes because her right hand was numb. She bent over to picker tender the cigarette she noted that her right face was numb. Within a couple of minutes she tried to speak and could get words out. She knew what she wanted to say but normal words were not forming. She feels that this lasted about 10-15 minutes and then improved some. The numbness had resolved by that time. On November 15, she arrived at 1834 with a temperature 36.8, pulse 74, respiratory rate 19, blood pressure 190/109, and O2 saturation 96 percent. On exam she was described as having some expressive aphasia. She also complained of a dull left-sided headache. Although her speech problems had improve some, in the emergency room, they became worse again. Tele stroke with Dr. Quinonez, [facility], ended up with her getting tPA (and had an NIH Stroke Scale of 1 for speech). Her blood pressure remained elevated and she was treated with IV hydralazine and labetalol. CBC was remarkable for a white count of 13. Chem profile showed a sodium of 133 and potassium at 3.4. Alk-phos was elevated at 137. Triglycerides were 108 and total cholesterol 193. LDL [address] scan of the head was unremarkable. CT angiography of the head and neck were unremarkable with no significant stenoses or vessel anomalies. MRI of the brain showed no acute stroke. There was mild old nonspecific small vessel ischemic changes only. This morning, blood pressure was 132/68 and then a little later on 156/74 after we did the examination. Patient herself has a slight headache posteriorly in the occiput with some nonspecific posterior cervical spine pain. She feels she has no weakness or numbness or speech problems. She does admit to hearing loss bilaterally which is old. Allergies Allergy/AdvReac Type Severity Reaction Status Date / Time nickel Allergy Mild Rash, itchy Unverified 11/15/18 19:55 Home Medications Home Medications Medication Instructions Recorded Confirmed Type allopurinol 300 mg PO DAILY 11/15/18 11/15/18 History aspirin 325 mg PO DAILY 11/15/18 11/15/18 History atorvastatin 80 mg PO HS 11/15/18 11/15/18 History clonidine HCl 0.1 mg PO BID 11/15/18 11/15/18 History levothyroxine 50 mcg PO QAM 11/15/18 11/15/18 History paroxetine HCl 20 mg PO DAILY 11/15/18 11/15/18 History potassium chloride 10 meq PO DAILY 11/15/18 11/15/18 History Patient History Medical History Hypertension (Chronic) Dyslipidemia (Chronic) Gout (Chronic) Carotid artery disease (Chronic) Depression (Chronic) History of colonic polyps (Chronic) S/P tubal ligation Surgical History History of carotid endarterectomy (Chronic) S/P wisdom tooth extraction Family History Mother Hypertension Dementia Dyslipidemia Father , age 70 of leukemia. 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 Safe at Home: Yes Smoking Status: Current every day smoker Tobacco Type: cigarettes ; Cigarettes Per Day: 30 ; Second Hand Exposure: Yes ; Hx Alcohol Use: Yes Alcohol type: beer Alcohol Intake Frequency Comment: 5-8 beers per day Hx Substance Use: No Review of Systems Constitutional: no fever, no fatigue and no weakness Eyes: no diplopia, no eye pain and no worsening vision Ear, Nose, Mouth, Throat: + hearing loss; no ear pain, no tinnitus, no dizziness, no snoring, no hoarseness and no dysphagia Respiratory: + cough; no dyspnea Cardiovascular: no chest pain, no palpitations and no lightheadedness Gastrointestinal: no abdominal pain, no nausea and no vomiting Genitourinary: no dysuria, no urinary frequency and no urinary incontinence Musculoskeletal: + neck pain; no back pain, no radicular pain, no joint pain and no myalgia Integumentary: no rash and no lesions Neurologic: + headache(s); no gait abnormality, no localized weakness, no generalized weakness, no tingling, no numbness, no tremor(s), no abnormal movements, no abnormal speech, no confusion and no memory loss Psychiatric: + depression and + anxiety; no irritability, no difficulty concentrating, no confusion and no hallucinations Endocrine: no fatigue and no flushing Hematologic / Lymphatic: + easy bruising; no easy bleeding Allergy / Immunological: no urticaria and no problem reported Physical Exam Physical Exam: The patient is right-handed. The patient is awake, alert, and attentive. Speech is normal without any aphasia or dysarthria. She can name objects, repeat phrases, and has normal spontaneous speech. Mentation and thought processes are intact, with orientation to person, place and time, and normal fund of knowledge. Attention and concentration are normal. Mood and affect are normal and appropriate. General appearance and servando oming are normal. Short and long-term memory are intact. NIH Stroke Scale equals 0. The discs are sharp with positive venous pulsations bilaterally. There are no exudates, hemorrhages, or blood vessel changes seen. Pupils are 4 mm bilaterally and reactive to light. Extraocular eye muscles are intact without nystagmus. Visual acuity and visual shelby seem normal grossly to confrontation. There are no deficits to sensation in the face in all 3 distributions of the fifth cranial nerve bilaterally. Corneal reflexes are positive bilaterally. Facial strength and symmetry was normal bilaterally. Hearing seems normal to whisper and finger rub bilaterally. Palate moves well without asymmetry. There is normal sternocleidomastoid and trapezius (shoulder shrug) strength bilaterally. Tongue is midline with good strength bilaterally. Neck has a full range of motion without discomfort. There are no cervical bruits bilaterally. There are no cranial or ocular bruits. Heart is without murmur. There is a regular rhythm and rate. Cervical, thoracic, and lumbar spine are nontender to palpation. Gait is narrow based, with good arm swing, turns, and stance. Balance is normal eyes open. With outstretched arms there is no drift. There are no resting, postural, or action tremors. There is no ataxia with finger to nose testing. There is good facility in the hands. No other abnormal involuntary movements are noted. Motor strength is 5/5 diffusely in the arms bilaterally including deltoids, biceps, triceps, brachioradialis, wrist flexors and extensors, clam bed laborer, and intrinsic hand muscles. Motor strength is 5/5 diffusely in the legs bilaterally including hip flexors, quadriceps, hamstrings, gastrocnemius, tibialis anterior, tibialis posterior, and Peroneii muscles. Toe extensors are normal and there is good bulk in the extensor digitorum brevis muscles bilaterally. The limbs have good tone without rigidity or spasticity. There is no atrophy noted in the muscles. Muscle bulk is normal, there is no tenderness to palpation, no myotonia to percussion, and no fasciculations seen. Sensory examination is intact to touch and pin throughout all 4 limbs diffusely. Reflexes are 2/4 in the biceps, triceps, brachioradialis, quadriceps, and Achilles tendons bilaterally. There is no clonus bilaterally. Toes are downgoing with plantar stimulation bilaterally. Peripheral pulses are present and of normal quality distally in all 4 limbs. There is no peripheral edema noted in the limbs. Results & Data Vital Signs (Past 12 Hours) Vital Signs Temp Pulse Pulse Resp BP BP Pulse Ox 11/16/18 08:15 92 H 15 95 11/16/18 08:00 81 32 H 156/74 H 95 11/16/18 07:45 80 19 95 11/16/18 07:30 80 27 H 149/73 H 91 11/16/18 07:15 78 19 92 11/16/18 07:00 78 17 132/68 93 11/16/18 06:45 85 21 92 11/16/18 06:30 79 24 148/67 H 93 11/16/18 06:00 82 21 153/73 H 94 11/16/18 05:30 78 24 170/90 H 96 11/16/18 05:01 82 37 H 169/71 H 93 11/16/18 04:35 85 22 163/79 H 94 11/16/18 04:24 37.5 C 84 22 167/71 H 98 11/16/18 04:00 36.7 C 86 20 167/71 H 99 11/16/18 03:30 83 22 134/63 96 11/16/18 03:15 88 24 126/51 L 96 11/16/18 03:00 86 24 145/64 H 98 11/16/18 02:45 20 132/68 94 11/16/18 02:30 90 24 129/91 96 11/16/18 02:15 87 24 152/73 H 96 11/16/18 02:00 93 H 21 149/82 H 94 11/16/18 01:45 84 20 140/63 97 11/16/18 01:30 83 23 142/68 H 96 11/16/18 01:15 82 24 143/68 H 96 11/16/18 01:00 82 24 147/67 H 95 11/16/18 00:52 89 L 11/16/18 00:45 83 23 141/80 H 88 L 11/16/18 00:30 82 23 151/67 H 93 11/16/18 00:15 79 24 149/75 H 92 11/16/18 00:00 81 25 H 141/72 H 93 11/15/18 23:45 84 22 131/71 92 11/15/18 23:30 82 18 155/65 H 93 11/15/18 23:15 80 24 150/69 H 96 11/15/18 23:01 87 23 173/103 H 97 11/15/18 23:00 85 16 98 11/15/18 22:45 79 22 163/70 H 95 11/15/18 22:30 82 19 175/78 H 96 11/15/18 22:15 81 23 167/74 H 97 11/15/18 22:05 84 27 H 97 11/15/18 22:00 86 28 H 181/74 H 97 11/15/18 21:57 83 32 H 97 11/15/18 21:56 85 22 175/73 H 97 11/15/18 21:45 83 24 166/70 H 96 11/15/18 21:43 86 17 09/16/19 21:35 85 18 158/64 H 96 11/15/18 21:20 86 20 166/61 H 97 11/15/18 21:15 81 22 176/79 H 98 11/15/18 21:13 77 23 185/96 H 97 11/15/18 21:06 77 17 192/78 H 97 11/15/18 21:01 80 16 178/98 H 98 11/15/18 21:00 80 20 97 11/15/18 20:47 77 27 H 187/89 H 96 11/15/18 20:45 75 36 H 173/79 H 96 Diagnostic Findings Brain MRI WITHOUT CONTRAST HISTORY: Left facial numbness. TECHNIQUE: Multiplanar multisequence MRI of the brain was performed without the use of contrast. COMPARISON STUDY: Head CT 11/15/2018. FINDINGS: There is no mass, hematoma, midline shift, or acute infarct. The paranasal sinuses are clear. The mastoid air cells are clear. The ventricles and sulci demonstrate mild age-related involutional changes. Scattered foci of T2 hyperintensity seen within the periventricular and subcortical white matter are nonspecific but suggestive of mild microvascular ischemic changes. The major vascular flow voids at the skull base are well-maintained. Mild motion artifact. IMPRESSION: Mild motion artifact. No definite acute intracranial abnormality. Scattered foci of T2 hyperintensity seen within the periventricular and subcortical white matter are nonspecific but favor microvascular ischemic change. Electronically signed by: Andre Hargrove M.D. 11/16/2018 7:24 AM PG Care Time/CCT Total # of Minutes Spent Total Time Spent with Patient: Total time spent is greater than 50% in coordination of care (as documented) at patient's floor/unit and/or counseling patient: (1) Hypertension Hypertension type: unspecified Qualified Code(s): I10 - Essential (primary) hypertension
[2018-11-16] MEDS ORDERED: ATORVASTATIN 40 MG TAB PO SCH ×2 (09:00→21:00)
[2018-11-16] MEDS: ALLOPURINOL 300 MG TAB PO SCH (09:57)
[2018-11-16] MEDS: PARoxetine HCl 20 MG TAB PO SCH (09:57)
[2018-11-16] MEDS: POTASSIUM CHLORIDE 10 MEQ TABCR PO SCH (11:37)
[2018-11-16] MEDS ORDERED: POTASSIUM CHLORIDE 20 MEQ TABCR PO ONE (12:30)
[2018-11-16] MEDS ORDERED: HydrALAZINE HCL 20 MG/ML VIAL IV STA (15:51)
--- NOTE | 2018-11-16 21:24 | CT Scan Report ---
CT head/brain wo con CT DOSE: 537.48 mGy.cm HISTORY: Mental status change Q24 hour s/p tPA TECHNIQUE: Multiaxial CT images of the head were performed without the use of intravenous contrast. A dose lowering technique was utilized adhering to the principles of ALARA. Comparison: 11/15/2018 Findings: The paranasal sinuses and mastoid air cells are clear. The calvarium and skull base are int act. The ventricles and sulci are within normal limits. There is no mass, hematoma, midline shift, or acute infarct. Impression: No acute intracranial abnormality. No change from the prior study. The above report was generated using voice recognition software. It may contain grammatical, syntax or spelling errors. Electronically signed by: Tyson Fernandez M.D. 11/16/2018 9:22 PM
[2018-11-16] MEDS ORDERED: ENOXAPARIN INJ 40 MG/0.4 ML SYR SQ ONE (21:29)
[2018-11-16] MEDS ORDERED: CLOPIDOGREL BISULFATE 75 MG TAB PO ONE (21:29)
[2018-11-17 04:56] LABS: Basophils # (auto) 0.03 K/uL (0-0.2); Basophils % (auto) 0.3 %; Eosinophils # (auto) 0.11 K/uL (0-0.5); Eosinophils % (auto) 0.9 %; Hematocrit (blood only) 46.2 % (37-47); Hemoglobin 15.8 g/dL (12.0-16.0); Immature Granulocytes # (auto) 0.02 K/uL (0.00-0.02); Immature Granulocytes % (auto) 0.2 %; Lymphocytes # (auto) 3.15 K/uL (1.2-3.4); Lymphocytes % (auto) 26.9 %; Mean Corpuscular Hemoglobin 33.1 pg (25-34); Mean Corpuscular Hgb Conc 34.2 g/dL (32-36); Mean Corpuscular Volume 96.7 fL (80-100); Mean Platelet Volume 9.3 fL (7.4-10.4); Monocytes # (auto) 1.61 K/uL (0.11-0.59); Monocytes % (auto) 13.8 %; Neutrophils # (auto) 6.77 K/uL (1.4-6.5); Neutrophils % (auto) 57.9 %; Platelet Count 413 K/uL (130-400); RDW Coefficient of Variation 13.8 % (11.5-14.5); RDW Standard Deviation 49.1 fL (36.4-46.3); Red Blood Count 4.78 M/uL (4.2-5.4); White Blood Count 11.69 K/uL (4.8-10.8)
[2018-11-17 05:20] LABS: BUN Creatinine Ratio 11.9 (10-20); Creatinine Clr Calc Pharmacy 68.9 ml/min; Est GFR (African American) 88.4; Est GFR (Non-African American) 76.3; Potassium 3.7 mmol/L (3.5-5.1)
[2018-11-17] MEDS: LEVOTHYROXINE SODIUM 50 MCG TABLET PO SCH (05:47)
[2018-11-17] MEDS: ALLOPURINOL 300 MG TAB PO SCH (07:38)
[2018-11-17] MEDS: PARoxetine HCl 20 MG TAB PO SCH (07:38)
[2018-11-17] MEDS: POTASSIUM CHLORIDE 10 MEQ TABCR PO SCH (07:39)
[2018-11-17] MEDS ORDERED: CLOPIDOGREL BISULFATE 75 MG TAB PO SCH (09:00)
--- NOTE | 2018-11-17 11:36 | Neurology Progress Note ---
Date of Service November 17, 2018 Assessment & Plan (1) TIA (transient ischemic attack): (2) Expressive aphasia: (3) Headache: (4) Hypertension: (5) Depression: The patient suffered an episode of expressive aphasia with right face and hand numbness on November 15. She was given tPA for mild expressive aphasia. Today she is asymptomatic with an NIH Stroke Scale of 0. Her headache has resolved. Although she has post bilateral carotid endarterectomy, CT angiography of the head/neck were unremarkable with no significant stenoses or anomalies of vessels in the head or neck. MRI of the brain showed no stroke and only minimal old small vessel ischemic disease. Blood pressure was markedly elevated on admission. Although it is improved, blood pressure is still elevated some. Etiology of her event could be TIA (with or without help from the tPA). In addition, severe hypertension could have caused the focal neurologic findings, likely from cerebral vasospasm. Overall, she is essentially back to baseline. She has a history of depression which is stable. She is on paroxetine. She has a heavy cigarette smoker and has a history of dyslipidemia which as to her stroke risk. Finally, she is a heavy alcohol user of chronically over time. Recommendations 1. Switch aspirin to clopidogrel 75 milligrams daily. 2. Control blood pressure, as you are doing, aiming for a mean arterial pressure of about 100. 3. She is a high dose statin candidate and can continue atorvastatin 80 milligrams daily. 4. Discontinue cigarette smoking. 5. Discontinue all alcohol use and monitor for withdrawal. 6. I have no further neurologic testing or treatment recommendations to make otherwise. I would be happy to see her as an outpatient in a few weeks for follow-up. Overall, I spent a total of 35 minutes with this case including review of records, direct evaluation the patient at bedside, and discussion of the case with the patient bedside, her nurse, and Dr. Nolan, including differential diagnosis and treatment options. Subjective Patient feels better and has no issues with pain, headache, dizziness, balance problems, weakness, or numbness. Echocardiogram was unremarkable Blood pressure was 162/82 CBC and Chem profile were largely unremarkable. Physical Exam Physical Exam: The patient is awake and alert, with normal speech and communication. There is no aphasia or dysarthria. Mood and affect are normal appropriate. Thought processes are intact. There is no facial droop. Extraocular eye muscles are intact without nystagmus. Gait is normal. Coordination of the arms is normal without tremor or ataxia. Motor strength is 5/5 in all major muscle groups of the arms and legs bilaterally, both proximally and distally. Results & Data Vital Signs (Past 12 Hours) Vital Signs Temp Pulse Pulse Resp BP BP Pulse Ox 11/17/18 10:00 37 C 97 H 20 162/82 H 96 11/17/18 09:14 97 H 20 169/81 H 11/17/18 08:00 102 H 18 11/17/18 07:37 36.7 C 93 H 18 189/103 H 97 11/17/18 07:00 93 H 20 193/109 H 11/17/18 06:00 84 17 163/79 H 11/17/18 05:00 81 22 162/65 H 11/17/18 04:01 36.7 C 88 19 166/99 H 94 11/17/18 03:00 93 H 16 130/99 11/17/18 02:00 92 H 15 135/99 11/17/18 01:00 81 22 174/74 H 11/17/18 00:05 36.8 C 99 H 19 174/83 H PG Care Time/CCT Total # of Minutes Spent Total Time Spent with Patient: Total time spent is greater than 50% in coordination of care (as documented) at patient's floor/unit and/or counseling patient: (1) Hypertension Hypertension type: unspecified Qualified Code(s): I10 - Essential (primary) hypertension
[2018-11-17] MEDS ORDERED: cloNIDine HCl 0.1 MG TAB PO ONE (14:00)
[2018-11-17] MEDS ORDERED: ENOXAPARIN INJ 40 MG/0.4 ML SYR SQ SCH (21:00)
--- NOTE | 2018-11-17 23:27 | Discharge Summary ---
Date of Service November 17, 2018 Discharge Data Allergies Allergy/AdvReac Type Severity Reaction Status Date / Time nickel Allergy Mild Rash, itchy Unverified 11/15/18 19:55 Consultations 11/15/18 22:34 ED Decision to Admit Stat 11/16/18 03:05 Consult Case Management - Discharge Planning Routine Consult Neurology Routine 11/16/18 03:08 Consult Kiln Repairer Routine Ordered Studies 11/15/18 19:03 CT head/brain wo con Stat 11/15/18 20:44 CT angio head w con Stat CT angio neck with con Stat 11/16/18 03:04 MR brain wo con Routine 11/16/18 21:05 CT head/brain wo con Urgent Discharge Plan Discharge Items Patient Disposition: Home - Self-Care Reason For Visit: CVA Discharge Diagnosis: TIA Activity: Resume your previous activity Non-emergency contact: Primary Care Provider Call non-emergency contact if: you have any medication questions and your symptoms worsen Follow-up/Referrals: Jorge Flood III, MD [Physician] - (Please, follow up at [facility] Neurology Office with Dr. Flood. *A nurse from his office will call you with the appointment details. If you have any questions, call his office at [phone].) Demetra Bowman DO [Primary Care Provider] - 11/25/18 10:55 am (Please, follow up with Dr. Bowman on November 25 at 10:55 am. *If you need to change this appointment, call the office at [phone].) Diet: Regular Addtl Attending Provider Instructions: Risk Factors for Stroke: You can reduce your chances of stroke by working with your medical provider to adopt a healthy lifestyle. Some specific ways to lower your chance of stroke are: * If you are a smoker, now is the time to stop smoking cigarettes * If you are diabetic, improve the control of your blood sugars * Avoid excessive amounts of alcohol * Control high blood pressure * Lose weight if you are overweight * Be sure to lead an active lifestyle * Eat a healthy diet low in salt, cholesterol and fat You should know about other risk factors for stroke that you are unable to control. These include: * Age 55 years or older * Male gender * Certain racial groups: , or / * Family History of Stroke, Mini stroke or Heart Attack * Sickle Cell Disease Follow Up: It is important for you to keep your follow up appointments with your medical provider. Who to Call and When: Medical Emergencies: Call 911 immediately if you experience any of the following warning signs and symptoms of Stroke: * Sudden numbness or weakness of the face, arm or leg, especially on one side of the body * Sudden confusion, trouble speaking or understanding * Sudden trouble seeing in one or both eyes * Sudden trouble walking, dizziness, loss of balance or coordination * Sudden severe headache with no cause Do not delay calling 911 if you experience any warning signs or symptoms of a stroke. Delay in seeking medical attention may affect what treatments can be given to you. . Pending Studies at Discharge: No Stand-Alone Forms: My [facility] Medications and DC Order Prescriptions: New clopidogrel 75 mg Tablet 75 mg PO QAM Qty: 30 RF: 0 lisinopril 10 mg tablet 10 mg PO DAILY Qty: 30 RF: 0 Continued atorvastatin 80 mg tablet 80 mg PO HS RF: 0 clonidine HCl 0.1 mg tablet 0.1 mg PO BID RF: 0 levothyroxine 50 mcg tablet 50 mcg PO QAM RF: 0 allopurinol 300 mg tablet 300 mg PO DAILY RF: 0 potassium chloride 10 mEq tablet extended release 10 meq PO DAILY RF: 0 paroxetine HCl 20 mg tablet 20 mg PO DAILY RF: 0 Discontinued aspirin 325 mg Tablet 325 mg PO DAILY RF: 0 Discharge Orders: Discharge Order (Routine); Ordered 11/17/18 Ordered By: Andre Nolan Admission Data Admit Date/Time: 11/16/18 03:08 Attending Provider: Andre Nolan Admit Provider: Lucho Suárez Primary Care Provider: Demetra Bowman Other Providers: Jorge Flood III ; Avery Petersen ; Lucho Suárez Other Interventions: Discharge Summary Assessment (RN) Last Done: 11/17/18 13:52 DC Date/Time DO NOT enter until pt leaves facility: 11/17/18 14:46
== END 2018-11-17 14:46 | disposition home or self-care (01) | DRG 63 ==
LOC: ED 18:39 → 1E 11-16 03:08 → SUATTDRO 11-16 03:08 → 1E 11-16 03:38 → 2N 11-17 08:08

== ENCOUNTER 2021-07-31 14:50 | Observation (INO) ==
[2021-07-31] MEDS ORDERED: AMPICILLIN/SULBACTAM SOD 3,000 MG in 0.9 % SODIUM CHLORIDE 100 ML IV STA (15:27)
--- NOTE | 2021-07-31 15:55 | Emergency Department Note ---
History of Present Illness General Chief complaint: Dental/Oral Stated complaint: ABCESS TOOTH Time Seen by Provider: 07/31/21 15:04 Source: patient Mode of arrival: ambulatory Limitations: no limitations History of Present Illness Maximum Pain Intensity: 3 This patient is a 71-year-old female who presents to the emergency department for evaluation of a dental abscess and facial swelling. The patient states that she has been having issues with one of her left lower molars for over a year. It has been bothering her for the past few weeks. She states that for the past 2 days, the pain has been constant and she has noticed some swelling to her left lower jaw. She went to the dentist today and they recommended that she come here for further treatment. She denies any fevers or vomiting, but states she was told that she had a temperature while at the dentist office. She has not been on any antibiotics for this. She has been taking Tylenol and ibuprofen for pain. Patient reports a prior history of bilateral carotid endarterectomy. She takes Eliquis due to history of a stroke. Home Medications Medication Instructions Recorded Confirmed Type allopurinol 300 mg tablet 300 mg PO HS 11/15/18 07/31/21 History atorvastatin 80 mg tablet 80 mg PO HS 11/15/18 07/31/21 History levothyroxine 50 mcg tablet 50 mcg PO QAM 11/15/18 07/31/21 History clopidogrel 75 mg tablet 75 mg PO QAM #30 tab 11/17/18 07/31/21 Rx lorazepam 2 mg tablet 2 mg PO DIRECTED PRN tab 12/10/18 07/31/21 History losartan 100 1 tab PO DAILY tab 12/10/18 07/31/21 History mg-hydrochlorothiazide 25 mg tablet multivitamin with iron (Daily 1 tab PO DAILY 12/10/18 07/31/21 History Multiple Vitamins/Iron) acetaminophen 500 mg tablet 500 mg PO Q6H PRN 07/31/21 07/31/21 History (Tylenol Extra Strength) pantoprazole 20 mg tablet,delayed 20 mg PO DAILY 07/31/21 07/31/21 History release venlafaxine 150 mg 150 mg PO DAILY 07/31/21 07/31/21 History capsule,extended release 24 hr Allergies Allergy/AdvReac Type Severity Reaction Status Date / Time nickel Allergy Mild Rash, itchy Unverified 11/15/18 19:55 No Known Drug Allergies Allergy Unknown Verified 12/02/18 11:34 Past Med/Surg History Medical History Carotid artery disease Depression Dyslipidemia Gout History of colonic polyps Hypertension Surgical History History of carotid endarterectomy S/P tubal ligation S/P wisdom tooth extraction Family History Mother Hypertension Dementia Dyslipidemia Father , age 70 of leukemia. 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 Safe at Home: Yes Assistive Devices: None Review of Systems A total of 10 systems reviewed and were otherwise negative Physical Exam Vital Signs Vital Signs - 24 hr 07/31/21 14:55 07/31/21 18:30 Temperature 36.1 C L Temperature Source Temporal Artery Scan Pulse Rate 90 86 Respiratory Rate 20 22 Respiratory Effort / Characteristics Non-Labored Spontaneous Respiratory Depth Normal Respiratory Pattern Regular Blood Pressure 182/69 H 170/90 H Blood Pressure Mean 106 116 Pulse Oximetry 97 98 Oxygen Delivery Method Room Air Room Air Sepsis Recent Fever Within 48 Hours No Sepsis New/Unexplained Change in Mental Status No Sepsis Action Taken by Nursing No Action Required VITALS: Vitals are noted on the nurse's note and reviewed by myself. GENERAL: This is a 71-year-old female, in no acute distress, well-developed well-nourished. SKIN: There is edema, erythema and warmth to the left mandible. Surgical scars noted to the neck bilaterally. HEAD: Normocephalic atraumatic. EARS: External auditory canals clear, tympanic membranes pearly garcia without erythema or effusion bilaterally. EYES: Pupils equal round and reactive to light and accommodation. Extraocular m ovements intact. MOUTH: Mucous membranes moist. Tonsils are not enlarged. Pharynx without erythema or exudate. NECK: Supple without nuchal rigidity. No lymphadenopathy. HEART: Regular rate and rhythm without murmurs gallops or rubs. LUNGS: Clear to auscultation bilaterally without wheezes, rales or rhonchi. No retractions or accessory muscle use. NEURO: Patient was alert and oriented to person place and time. Course Administered Medications Sodium Chloride (Nss 1000ml) 1,000 mls @ 80 mls/hr IV .[id number] RD Stop: 08/01/21 22:44 Last Admin: 07/31/21 23:07 Dose: 80 mls/hr Documented by: [id number] Discontinued Medications Acetaminophen (Acetaminophen 500 Mg Tab) 1,000 mg PO NOW STA Stop: 07/31/21 20:17 Last Admin: 07/31/21 20:22 Dose: 1,000 mg Documented by: [id number] Ampicillin Sodium/Sulbactam Sodium 3,000 mg/ Sodium Chloride 108 mls @ 200 mls/hr IV NOW STA; Protocol Stop: 07/31/21 15:59 Last Infusion: 07/31/21 17:07 Dose: 0 mls/hr Documented by: [id number] Admin: 07/31/21 16:25 Dose: 200 mls/hr Documented by: [id number] Sodium Chloride (Nss 1000ml) 1,000 mls @ 999 mls/hr IV .Q1H1M ONE Stop: 07/31/21 18:52 Last Admin: 07/31/21 18:11 Dose: 999 mls/hr Documented by: [id number] Ioversol (Optiray 320 100ml) 94 ml IV ONCE ONE Stop: 07/31/21 17:04 Last Admin: 07/31/21 17:04 Dose: 94 ml Documented by: [id number] Ketorolac Tromethamine (Ketorolac Tromethamine 15 Mg/Ml Vial) 15 mg IV NOW STA Stop: 07/31/21 22:47 Last Admin: 07/31/21 23:07 Dose: 15 mg Documented by: [id number] Potassium Chloride (Potassium Chloride Pwd 20 Meq Pack) 40 meq PO NOW STA Stop: 07/31/21 21:12 Last Admin: 07/31/21 22:06 Dose: 40 meq Documented by: [id number] Medical Decision Making Differential Diagnosis Differential diagnosis includes dental caries, periapical abscess, facial cellulitis, 's angina, pharyngitis, referred pain, among others. Home Medications Current Medication List: was personally reviewed by me Laboratory Data Attestation: I reviewed the patient's lab results. Result diagrams: 07/31/21 15:48 07/31/21 15:48 Lab Results 07/31/21 07/31/21 07/31/21 Range/Units 15:48 15:48 15:48 WBC 16.27 H (4.8-10.8) K/uL RBC 4.16 L (4.2-5.4) M/uL Hgb 14.4 (12.0-16.0) g/dL Hct 40.5 (37-47) % MCV 97.4 (80-100) fL MCH 34.6 H (25-34) pg MCHC 35.6 (32-36) g/dL RDW Std Deviation 46.7 H (36.4-46.3) fL RDW Coeff of Becky 13.1 (11.5-14.5) % Plt Count 421 H (130-400) K/uL MPV 9.1 (7.4-10.4) fL Immature Gran % (Auto) 0.5 % Neut % (Auto) 74.0 % Lymph % (Auto) 12.8 % [place] % (Auto) 12.4 % Eos % (Auto) 0.2 % Baso % (Auto) 0.1 % Neut # (Auto) 12.03 H (1.4-6.5) K/uL Lymph # (Auto) 2.08 (1.2-3.4) K/uL [place] # (Auto) 2.02 H (0.11-0.59) K/uL Eos # (Auto) 0.04 (0-0.5) K/uL Baso # (Auto) 0.02 (0-0.2) K/uL Immature Gran # (Auto) 0.08 H (0.00-0.02) K/uL Sodium 128 L (136-145) mmol/L Potassium 3.2 L (3.5-5.1) mmol/L Chloride 90 L (98-107) mmol/L Carbon Dioxide 27 (21-32) mmol/L Anion Gap 11 (3-11) BUN 10 (6-23) mg/dl Creatinine 0.70 (0.6-1.2) mg/dl Est Cr Clr Drug Dosing 67.3 ml/min Est GFR ( Amer) 101.7 ml/min Est GFR (Non-Af Amer) 87.8 ml/min BUN/Creatinine Ratio 14.3 (10-20) Glucose 92 (70-99(Fasting)) mg/dl Lactate 0.9 (0.4-2.0) mmol/L Calcium 10.1 (8.5-10.1) mg/dl Total Bilirubin 0.7 (0.2-1.0) mg/dl AST 16 (13-39) U/L ALT 14 (7-52) U/L Alkaline Phosphatase 125 H (34-104) U/L Total Protein 8.1 (6.0-8.3) gm/dl Albumin 4.4 (3.4-5.0) gm/dl Globulin 3.7 (2.5-4.0) gm/dl Albumin/Globulin Ratio 1.2 (0.9-2) SARS-CoV-2, RNA, NAAT (NEGATIVE) 07/31/21 Range/Units 18:06 WBC (4.8-10.8) K/uL RBC (4.2-5.4) M/uL Hgb (12.0-16.0) g/dL Hct (37-47) % MCV (80-100) fL MCH (25-34) pg MCHC (32-36) g/dL RDW Std Deviation (36.4-46.3) fL RDW Coeff of Becky (11.5-14.5) % Plt Count (130-400) K/uL MPV (7.4-10.4) fL Immature Gran % (Auto) % Neut % (Auto) % Lymph % (Auto) % [place] % (Auto) % Eos % (Auto) % Baso % (Auto) % Neut # (Auto) (1.4-6.5) K/uL Lymph # (Auto) (1.2-3.4) K/uL [place] # (Auto) (0.11-0.59) K/uL Eos # (Auto) (0-0.5) K/uL Baso # (Auto) (0-0.2) K/uL Immature Gran # (Auto) (0.00-0.02) K/uL Sodium (136-145) mmol/L Potassium (3.5-5.1) mmol/L Chloride (98-107) mmol/L Carbon Dioxide (21-32) mmol/L Anion Gap (3-11) BUN (6-23) mg/dl Creatinine (0.6-1.2) mg/dl Est Cr Clr Drug Dosing ml/min Est GFR ( Amer) ml/min Est GFR (Non-Af Amer) ml/min BUN/Creatinine Ratio (10-20) Glucose (70-99(Fasting)) mg/dl Lactate (0.4-2.0) mmol/L Calcium (8.5-10.1) mg/dl Total Bilirubin (0.2-1.0) mg/dl AST (13-39) U/L ALT (7-52) U/L Alkaline Phosphatase (34-104) U/L Total Protein (6.0-8.3) gm/dl Albumin (3.4-5.0) gm/dl Globulin (2.5-4.0) gm/dl Albumin/Globulin Ratio (0.9-2) SARS-CoV-2, RNA, NAAT NEGATIVE (NEGATIVE) Imaging Data Attestation: I personally reviewed and interpreted this imaging study as follows: Radiologist's Impression: Soft Tissue Neck CT 07/31/21 15:27 CT soft tissue neck w con HISTORY: left sided facial swelling, dental abscess TECHNIQUE: Multiaxial CT images of the neck were performed following the intravenous administration of 94 cc of Optiray 320. Sagittal and coronal reformations were also obtained. COMPARISON STUDY: Neck CTA 11/15/2018. FINDINGS: The visualized brain parenchyma and orbits are unremarkable. The pterygopalatine fossa and paratracheal fat spaces are well-maintained. The major mucosal airways services appear intact. The epiglottis and prevertebral soft tissues are normal in thickness. Prior left thyroidectomy. The right thyroid gland enhances normally. Mild calcified plaque within the bilateral carotid bifurcations. Approximate 40% focal stenosis within the distal left common ca rotid artery. Remaining bilateral carotid arteries are patent. The parotid and submandibular glands are symmetric. Mild subcutaneous trace edema within the anterior neck and partially surrounding the submandibular glands. There is mild thickening of the proximal platysma. There is also left perimandibular soft tissue swelling/infiltration with a small abscess abutting the buccal surface of the body of the left hemimandible. This is best seen on axial image 150 and measures 2.1 x 0.4 cm. A few prominent left submandibular lymph nodes which are likely reactive. This abscess is likely due to the small periapical lucency at ADA 20 which demonstrate cortical breakthrough along the buccal surface. This is best seen on axial image 141. No pneumothorax. Mild emphysema. Degenerative changes at again noted within the cervical spine. New compared opacities of the right maxillary sinus, unchanged. IMPRESSION: 1. There is a small periapical lucency at ADA 20 which demonstrates cortical breakthrough along the buccal surface. There is an adjacent 2.1 x 0.4 cm abscess at the buccal surface of the left hemimandible. 2. Additional findings as described above. ACT 112: Negative or not required by law. Electronically signed by: Andre Hargrove M.D. 07/31/2021 5:14 PM MDM Narrative Continuous banking pin adjuster: Order was placed for continuous banking pin adjuster. Patient was placed on the banking pin adjuster. Patient was noted to be in normal sinus rhythm at an initial rate of 90 bpm. The patient is a 71-year-old female who presents today complaining of dental pain and facial swelling. Labs revealed a leukocytosis of 16,000. Patient is also hyponatremic with a sodium of 128. CT of the facial bones was performed and showed a dental abscess with surrounding facial cellulitis. Patient was given a dose of Unasyn in the ED. I spoke with the maxillofacial surgeon inspector repairer sandstone, Dr. Nolasco, who recommended medical admission and will follow up for ra pacheco. The case was then [facility], who agreed to evaluate the patient for further care. Impression & Plan Facial cellulitis, Dental abscess, Hyponatremia Discharge Plan Visit Data Chief Complaint: Dental/Oral Stated Complaint: ABCESS TOOTH ED Provider: Ivan Thompson ED Midlevel Provider: Nabila Robledo Discharge Problem: Facial cellulitis, Dental abscess, Hyponatremia
[2021-07-31 16:06] LABS: Basophils # (auto) 0.02 K/uL (0-0.2); Basophils % (auto) 0.1 %; Eosinophils # (auto) 0.04 K/uL (0-0.5); Eosinophils % (auto) 0.2 %; Hematocrit (blood only) 40.5 % (37-47); Hemoglobin 14.4 g/dL (12.0-16.0); Immature Granulocytes # (auto) 0.08 K/uL (0.00-0.02); Immature Granulocytes % (auto) 0.5 %; Lymphocytes # (auto) 2.08 K/uL (1.2-3.4); Lymphocytes % (auto) 12.8 %; Mean Corpuscular Hemoglobin 34.6 pg (25-34); Mean Corpuscular Hgb Conc 35.6 g/dL (32-36); Mean Corpuscular Volume 97.4 fL (80-100); Mean Platelet Volume 9.1 fL (7.4-10.4); Monocytes # (auto) 2.02 K/uL (0.11-0.59); Monocytes % (auto) 12.4 %; Neutrophils # (auto) 12.03 K/uL (1.4-6.5); Platelet Count 421 K/uL (130-400); RDW Coefficient of Variation 13.1 % (11.5-14.5); RDW Standard Deviation 46.7 fL (36.4-46.3); Red Blood Count 4.16 M/uL (4.2-5.4); White Blood Count 16.27 K/uL (4.8-10.8)
[2021-07-31 16:29] LABS: Albumin Globulin Ratio 1.2 (0.9-2); Albumin Level 4.4 gm/dl (3.4-5.0); BUN Creatinine Ratio 14.3 (10-20); Bilirubin,Total 0.7 mg/dl (0.2-1.0); Calcium 10.1 mg/dl (8.5-10.1); Creatinine Clr Calc Pharmacy 67.3 ml/min; Est GFR (African American) 101.7 ml/min; Est GFR (Non-African American) 87.8 ml/min; Globulin 3.7 gm/dl (2.5-4.0); Potassium 3.2 mmol/L (3.5-5.1); Total Protein 8.1 gm/dl (6.0-8.3)
[2021-07-31] MEDS ORDERED: OPTIRAY 320 100ml IV ONE (17:03)
--- NOTE | 2021-07-31 17:16 | CT Scan Report ---
CT soft tissue neck w con HISTORY: left sided facial swelling, dental abscess TECHNIQUE: Multiaxial CT images of the neck were performed following the intravenous administration o f 94 cc of Optiray 320. Sagittal and coronal reformations were also obtained. COMPARISON STUDY: Neck CTA 11/15/2018. FINDINGS: The visualized brain parenchyma and orbits are unremarkable. The pterygopalatine fossa and paratracheal fat spaces are well-maintained. The major mucosal airways services appear intact. The ep iglottis and prevertebral soft tissues are normal in thickness. Prior left thyroidectomy. The right t hyroid gland enhances normally. Mild calcified plaque within the bilateral carotid bifurcations. Appr oximate 40% focal stenosis within the distal left common carotid artery. Remaining bilateral carotid arteries are patent. The parotid and submandibular glands are symmetric. Mild subcutaneous trace sanya a within the anterior neck and partially surrounding the submandibular glands. There is mild thickeni ng of the proximal platysma. There is also left perimandibular soft tissue swelling/infiltration with a small abscess abutting the buccal surface of the body of the left hemimandible. This is best seen on axial image 150 and measures 2.1 x 0.4 cm. A few prominent left submandibular lymph nodes which ar e likely reactive. This abscess is likely due to the small periapical lucency at ADA 20 which demonst rate cortical breakthrough along the buccal surface. This is best seen on axial image 141. No pneumot horax. Mild emphysema. Degenerative changes at again noted within the cervical spine. New compared op acities of the right maxillary sinus, unchanged. IMPRESSION: 1. There is a small periapical lucency at ADA 20 which demonstrates cortical breakthrough along the b uccal surface. There is an adjacent 2.1 x 0.4 cm abscess at the buccal surface of the left hemimandib le. 2. Additional findings as described above. ACT 112: Negative or not required by law. Electronically signed by: Andre Hargrove M.D. 07/31/2021 5:14 PM
[2021-07-31] MEDS ORDERED: SODIUM CHLORIDE 0.9% 1000ML 1,000 ML IV ONE (17:52)
--- NOTE | 2021-07-31 18:19 | Emergency Department Note ---
ED Visit Note I was consulted by the Advanced Practice Provider Nabila Robledo PA-C I saw the patient personally and performed a substantive portion of the visit. This includes aspects of the HPI, MDM, diagnostic interpretations, and disposition/plan. Patient presented with facial cellulitis and swelling. Blood work was obtained and the patient was given Unasyn. Mild hyponatremia and hypokalemia noted. White count of 16 the patient does have a dental abscess noted. Patient was admitted to the medicine service for continued IV antibiotics .
--- NOTE | 2021-07-31 20:13 | History & Physical Report ---
Date of Service July 31, 2021 Assessment & Plan (1) Dental abscess: (2) Facial cellulitis: (3) Hyponatremia: (4) Hypokalemia: Plan: Dental abscess with facial cellulitis- CT reviewed as below. Does not meet sepsis criteria. - continue unasyn q6hr, pain management - Consult oromaxillofacial surgery (ED physician spoke to Dr Nolasco [phone]- please call tomorrow for an update and regarding surgical plan) - follow blood clx CT face 1. There is a small periapical lucency at ADA 20 which demonstrates cortical breakthrough along the buccal surface. There is an adjacent 2.1 x 0.4 cm abscess at the buccal surface of the left hemimandible Tobacco abuse- smokes 1 ppd but states allergic to nicotine patch Alcohol abuse- drinks 6-8 light beers per day but denies any concern for withdrawal; never had any issues in past even when she was hospitalized for stroke for days. Last drink last night. Low concern for withdrawal but will maintain on AWSS protocol with prn ativan. Hypokalemia- repleted, recheck in am Hyponatremia- could be beer potomania. Getting some IVF, recheck in am HTN- on losartan- continue with hold parameters H/o gout- on allopurinol GERD- on PPI Anxiety- on effexor. H/o CVA- on plavix, statin. H/o bilateral endarterectomy Dispo- Medsurg tele Full code DVT ppx- holding for possible surgery tomorrow- resume afterwards when okay per surgery History of Present Illness Chief Complaint: facial swelling Primary Care Provider: Demetra Bowman DO 71 year old female who presented to the ED for evaluation of facial swelling. Patient has been having issues with one of her left lower molars for over a year. Saw her dentist in May and cleaning was done. Bothering her for the past few weeks. Over the past 2 days, she noticed constant pain along with facial swelling. Went to dentist today and recommended ED evaluation. In ED, she was afebrile, hemodynamically stable. CT showed dental abscess Given Unasyn. ED spoke to oromaxillofacial surgeon who recommended Continued IV ABx. During my encounter, she was fairly comfortable. States she was taking ibuprofen 400 mg 4 times a day which helped her pain but she was given tylenol in ED which was not working great for her. Denies any fever, chills, chest pain, dysphagia, dyspnea, dysphonia. Unable to open mouth fully because of pain. Allergies Allergy/AdvReac Type Severity Reaction Status Date / Time nickel Allergy Mild Rash, itchy Unverified 11/15/18 19:55 No Known Drug Allergies Allergy Unknown Verified 12/02/18 11:34 Home Medications Medication Instructions Recorded Confirmed Type allopurinol 300 mg tablet 300 mg PO HS 11/15/18 07/31/21 History atorvastatin 80 mg tablet 80 mg PO HS 11/15/18 07/31/21 History levothyroxine 50 mcg tablet 50 mcg PO QAM 11/15/18 07/31/21 History clopidogrel 75 mg tablet 75 mg PO QAM #30 tab 11/17/18 07/31/21 Rx lorazepam 2 mg tablet 2 mg PO DIRECTED PRN tab 12/10/18 07/31/21 History losartan 100 1 tab PO DAILY tab 12/10/18 07/31/21 History mg-hydrochlorothiazide 25 mg tablet multivitamin with iron (Daily 1 tab PO DAILY 12/10/18 07/31/21 History Multiple Vitamins/Iron) acetaminophen 500 mg tablet 500 mg PO Q6H PRN 07/31/21 07/31/21 History (Tylenol Extra Strength) pantoprazole 20 mg tablet,delayed 20 mg PO DAILY 07/31/21 07/31/21 History release venlafaxine 150 mg 150 mg PO DAILY 07/31/21 07/31/21 History capsule,extended release 24 hr Past Med/Surg History Medical History Carotid artery disease Depression Dyslipidemia Gout History of colonic polyps Hypertension Surgical History History of carotid endarterectomy S/P tubal ligation S/P wisdom tooth extraction Family History Mother Hypertension Dementia Dyslipidemia Father , age 70 of leukemia. 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 Dental caries +, left facial/jaw swelling, Trismus + Prior CEA scar bilaterally Chest: Clear breath sounds bilaterally, no wheezes or crackles CVS: Regular rate and rhythm, normal heart sounds, no murmur Abdomen: Soft, non tender, not distended, normal bowel sounds Neuro: Awake, alert, oriented, conversing well, non focal Extremities: No cyanosis, clubbing or edema Results & Data Results & Data ([facility]) Vital Signs (Past 12 Hours) Vital Signs Temp Pulse Resp BP Pulse Ox 07/31/21 18:30 86 22 170/90 H 98 07/31/21 14:55 36.1 C L 90 20 182/69 H 97 Laboratory Results Short CBC 07/31/21 Range/Units 15:48 WBC 16.27 H (4.8-10.8) K/uL Hgb 14.4 (12.0-16.0) g/dL Hct 40.5 (37-47) % Plt Count 421 H (130-400) K/uL BMP 07/31/21 15:48 Sodium 128 L Potassium 3.2 L Chloride 90 L Carbon Dioxide 27 BUN 10 Creatinine 0.70 Glucose 92 Calcium 10.1 Liver Function 07/31/21 Range/Units 15:48 Total Bilirubin 0.7 (0.2-1.0) mg/dl AST 16 (13-39) U/L ALT 14 (7-52) U/L Alkaline Phosphatase 125 H (34-104) U/L Albumin 4.4 (3.4-5.0) gm/dl Diagnostic Findings Soft Tissue Neck CT 07/31/21 15:27 CT soft tissue neck w con HISTORY: left sided facial swelling, dental abscess TECHNIQUE: Multiaxial CT images of the neck were performed following the intravenous administration of 94 cc of Optiray 320. Sagittal and coronal reformations were also obtained. COMPARISON STUDY: Neck CTA 11/15/2018. FINDINGS: The visualized brain parenchyma and orbits are unremarkable. The pterygopalatine fossa and paratracheal fat spaces are well-maintained. The major mucosal airways services appear intact. The epiglottis and prevertebral soft tissues are normal in thickness. Prior left thyroidectomy. The right thyroid gland enhances normally. Mild calcified plaque within the bilateral carotid bifurcations. Approximate 40% focal stenosis within the distal left common carotid artery. Remaining bilateral carotid arteries are patent. The parotid and submandibular glands are symmetric. Mild subcutaneous trace edema within the anterior neck and partially surrounding the submandibular glands. There is mild thickening of the proximal platysma. There is also left perimandibular soft tissue swelling/infiltration with a small abscess abutting the buccal surface of the body of the left hemimandible. This is best seen on axial image 150 and measures 2.1 x 0.4 cm. A few prominent left submandibular lymph nodes which are likely reactive. This abscess is likely due to the small periapical lucency at ADA 20 which demonstrate cortical breakthrough along the buccal surface. This is best seen on axial image 141. No pneumothorax. Mild emphysema. Degenerative changes at again noted within the cervical spine. New compared opacities of the right maxillary sinus, unchanged. IMPRESSION: 1. There is a small periapical lucency at ADA 20 which demonstrates cortical breakthrough along the buccal surface. There is an adjacent 2.1 x 0.4 cm abscess at the buccal surface of the left hemimandible. 2. Additional findings as described above. ACT 112: Negative or not required by law. Electronically signed by: Andre Hargrove M.D. 07/31/2021 5:14 PM
[2021-07-31] MEDS ORDERED: ACETAMINOPHEN 500 MG TAB PO STA (20:16)
[2021-07-31] MEDS ORDERED: POTASSIUM CHLORIDE PWD 20 MEQ PACK PO STA (21:11)
[2021-07-31] MEDS ORDERED: ACETAMINOPHEN 325 MG TAB PO PRN (22:39)
[2021-07-31] MEDS ORDERED: KETOROLAC TROMETHAMINE 15 MG/ML VIAL IV STA (22:46)
[2021-07-31] MEDS: SODIUM CHLORIDE 0.9% 1000ML 1,000 ML IV SCH (23:07)
[2021-08-01] MEDS ORDERED: IBUPROFEN 200 MG TAB PO PRN (00:28)
[2021-08-01] MEDS ORDERED: LORazepam 1 MG TAB PO PRN (00:28)
[2021-08-01] MEDS ORDERED: ACETAMINOPHEN 500 MG TAB PO PRN (00:28)
[2021-08-01] MEDS: THIAMINE HCL 100 MG TAB PO SCH ×2 (02:07→08:40)
[2021-08-01] MEDS: FOLIC ACID 1 MG TAB PO SCH ×2 (02:07→08:39)
[2021-08-01] MEDS: AMPICILLIN/SULBACTAM SOD 3,000 MG in 0.9 % SODIUM CHLORIDE 100 ML IV SCH ×2 (02:11→08:36)
[2021-08-01 05:21] LABS: Basophils # (auto) 0.03 K/uL (0-0.2); Basophils % (auto) 0.3 %; Eosinophils # (auto) 0.07 K/uL (0-0.5); Eosinophils % (auto) 0.7 %; Hematocrit (blood only) 36.9 % (37-47); Hemoglobin 13.1 g/dL (12.0-16.0); Immature Granulocytes # (auto) 0.03 K/uL (0.00-0.02); Immature Granulocytes % (auto) 0.3 %; Lymphocytes # (auto) 1.68 K/uL (1.2-3.4); Lymphocytes % (auto) 16.4 %; Mean Corpuscular Hgb Conc 35.5 g/dL (32-36); Mean Corpuscular Volume 98.7 fL (80-100); Monocytes # (auto) 1.58 K/uL (0.11-0.59); Monocytes % (auto) 15.5 %; Neutrophils # (auto) 6.83 K/uL (1.4-6.5); Neutrophils % (auto) 66.8 %; Platelet Count 385 K/uL (130-400); RDW Coefficient of Variation 13.2 % (11.5-14.5); RDW Standard Deviation 47.8 fL (36.4-46.3); Red Blood Count 3.74 M/uL (4.2-5.4); White Blood Count 10.22 K/uL (4.8-10.8)
[2021-08-01 05:41] LABS: Calcium 8.9 mg/dl (8.5-10.1); Creatinine Clr Calc Pharmacy 94.2 ml/min; Est GFR (African American) 113.7 ml/min; Est GFR (Non-African American) 98.1 ml/min; Magnesium 1.6 mg/dl (1.7-2.4); Potassium 3.7 mmol/L (3.5-5.1)
[2021-08-01] MEDS ORDERED: LEVOTHYROXINE SODIUM 50 MCG TABLET PO SCH ×2 (06:30→09:00)
[2021-08-01] MEDS ORDERED: MULTIVITAMIN TAB PO SCH (09:00)
[2021-08-01] MEDS ORDERED: PANTOprazole 40 MG TAB PO SCH (09:00)
[2021-08-01] MEDS ORDERED: CLOPIDOGREL BISULFATE 75 MG TAB PO SCH (09:00)
[2021-08-01] MEDS ORDERED: LOSARTAN POTASSIUM 50 MG TAB PO SCH (09:00)
[2021-08-01] MEDS ORDERED: VENLAFAXINE HCL XR 150 MG CAPXR PO SCH (09:00)
[2021-08-01] MEDS ORDERED: amLODIPine BESYLATE 5 MG TAB PO SCH ×2 (09:45→12:30)
[2021-08-01] MEDS: MAGNESIUM SULFATE / D5W 1 GM/100 ML BAG IV SCH ×2 (09:56→11:42)
[2021-08-01] MEDS: SODIUM CHLORIDE 0.9% 1000ML 1,000 ML IV SCH (11:41)
--- NOTE | 2021-08-01 12:38 | Discharge Summary ---
Date of Service August 01, 2021 Admission HPI Per Admitting Provider 71 year old female who presented to the ED for evaluation of facial swelling. Patient has been having issues with one of her left lower molars for over a year. Saw her dentist in May and cleaning was done. Bothering her for the past few weeks. Over the past 2 days, she noticed constant pain along with facial swelling. Went to dentist today and recommended ED evaluation. In ED, she was afebrile, hemodynamically stable. CT showed dental abscess Given Unasyn. ED spoke to oromaxillofacial surgeon who recommended Continued IV ABx. During my encounter, she was fairly comfortable. States she was taking ibuprofen 400 mg 4 times a day which helped her pain but she was given tylenol in ED which was not working great for her. Denies any fever, chills, chest pain, dysphagia, dyspnea, dysphonia. Unable to open mouth fully because of pain. Principal Diagnosis Dental Abscess Poorly controlled Hypertension Hyponatremia Discharge Exam Patient remains afebrile, left face swelling is improved Appears well, no acute distress HEENT- left jaw swelling, patient able to speak, swallow her secretions and open mouth Breathing comfortably on room air Discharge Data Allergies Allergy/AdvReac Type Severity Reaction Status Date / Time nickel Allergy Mild Rash, itchy Unverified 11/15/18 19:55 No Known Drug Allergies Allergy Unknown Verified 12/02/18 11:34 Consultations 07/31/21 18:27 ED Decision to Admit Stat 07/31/21 22:36 Consult Oromaxillofacial Surgery Routine Ordered Studies 07/31/21 15:27 CT soft tissue neck w con Stat Hospital Course (1) Dental abscess: (2) Facial cellulitis: (3) Hyponatremia: (4) Hypokalemia: Mrs Mary Ellen Teresa is a 71 year old female with history of current daily drinker (no history of withdrawal symptoms), chronic hyponatremia, hypertension and dental caries presents to the ER 07/31 for left maxillary swelling. Here, was found to have 2.1 x 0.4 cm dental abscess. She was admitted for IV antibiotics (IV unasyn) and monitored overnight. With antibiotics, her leukocytosis improved from 16 to 10 and her facial swelling also improved. She was discharged on Augmentin to finish 7 day course. Case was discussed with Dr Nolasco who will see her in the office for dental jaiden extraction and absce ss drainage. Of note, patient with hyponatremia which is likely from beer potomania and being on HCTZ. Upon admission, her losartan-HCTZ was switched to losartan 100mg daily and amlodipine 5mg daily. HCTZ was discontinued. She was instructed to follow up with her PCP within 1 week for blood pressure management and repeat BMP to monitor sodium. Total Time Total Time Spent Total Time Spent (In Minutes): 40 Discharge Plan Discharge Items Patient Disposition: Home - Self-Care Reason For Visit: FACIAL SWELLING Discharge Diagnosis: Dental Abscess Poorly controlled hypertension Hyponatremia Condition on Discharge: Good Activity: Resume your previous activity Non-emergency contact: Primary Care Provider and Surgeon Call non-emergency contact if: you have any medication questions Follow-up/Referrals: Tyler Nolasco MD, DDS [Surgeon] - Demetra Bowman, [Primary Care Provider] - Diet: Regular Addtl Attending Provider Instructions: You were admitted for a dental abscess. You were placed on IV Unasyn while in the hospital and discharged on Augmentin for another 7 days. You should follow up with Dr Nolasco (oral surgeon) immediately after discharge to discuss teeth extraction and abscess drainage Your blood pressure was elevated while here. Your losartan 100mg-HCTZ 25mg was discontinued due to low sodium You were started on losartan 100mg daily and amlodipine 5mg daily for your blood pressure. Please follow up with your primary care doctor within 1 week for blood pressure management. Pending Studies at Discharge: Yes Studies:: blood cultures Stand-Alone Forms: My [facility] [employer], Smoking Cessation Medications and DC Order Prescriptions: New losartan 50 mg Tablet 100 mg PO QAM 30 Days Qty: 60 RF: 0 amlodipine [Norvasc] 5 mg Tablet 5 mg PO QAM 30 Days Qty: 30 RF: 0 amoxicillin-pot clavulanate 875-125 mg tablet 1 tab PO BID 7 Days Qty: 14 RF: 0 acetaminophen 325 mg tablet 650 mg PO Q6H PRN (Reason: fever or pain) 5 Days Qty: 30 RF: 0 Continued lorazepam 2 mg tablet 2 mg PO DIRECTED PRN (Reason: Anxiety) RF: 0 multivitamin with iron [Daily Multiple Vitamins/Iron] tablet 1 tab PO DAILY RF: 0 atorvastatin 80 mg tablet 80 mg PO HS RF: 0 levothyroxine 50 mcg tablet 50 mcg PO QAM RF: 0 allopurinol 300 mg tablet 300 mg PO HS RF: 0 clopidogrel 75 mg Tablet 75 mg PO QAM Qty: 30 RF: 0 venlafaxine 150 mg capsule,extended release 24hr 150 mg PO DAILY RF: 0 acetaminophen [Tylenol Extra Strength] 500 mg Tablet 500 mg PO Q6H PRN (Reason: Pain) RF: 0 pantoprazole 20 mg tablet,delayed release (DR/EC) 20 mg PO DAILY RF: 0 Discontinued losartan-hydrochlorothiazide 100-25 mg tablet 1 tab PO DAILY RF: 0 Discharge Orders: Discharge Order (Routine); Ordered 08/01/21 Ordered By: Ira St Admission Data Admit Date/Time: 07/31/21 21:17 Attending Provider: Ira St Admit Provider: Robbie Han Primary Care Provider: Demetra Bowman Other Providers: Robbie Han ; Tyler Nolasco
[2021-08-01] MEDS ORDERED: ATORVASTATIN 40 MG TAB PO SCH (21:00)
[2021-08-01] MEDS ORDERED: allopurinoL 300 MG TAB PO SCH (21:00)
[2021-08-02] MEDS ORDERED: amLODIPine BESYLATE 5 MG TAB PO SCH (09:00)
== END 2021-08-01 13:00 | disposition home or self-care (01) ==
LOC: ED 14:50 → EDINP 21:17 → INTOOBSV 21:17 → SUATTDRO 21:17 → EDINP 08-01 00:30

== ENCOUNTER 2023-01-09 18:33 | Inpatient (IN) ==
[2023-01-09 19:30] LABS: Basophils # (auto) 0.03 K/uL (0.00-0.20); Basophils % (auto) 0.3 %; Eosinophils # (auto) 0.06 K/uL (0.00-0.50); Eosinophils % (auto) 0.5 %; Hematocrit (blood only) 35.3 % (37.0-47.0); Immature Granulocytes # (auto) 0.04 K/uL (0.01-0.20); Immature Granulocytes % (auto) 0.4 %; Lymphocytes # (auto) 1.93 K/uL (1.20-3.40); Lymphocytes % (auto) 17.3 %; Mean Corpuscular Hgb Conc 36.8 g/dL (32.0-36.0); Mean Corpuscular Volume 92.4 fL (80.0-100.0); Monocytes # (auto) 1.11 K/uL (0.11-0.59); Monocytes % (auto) 9.9 %; Neutrophils % (auto) 71.6 %; Platelet Count 472 K/uL (130-400); RDW Coefficient of Variation 12.4 % (11.5-14.5); RDW Standard Deviation 41.8 fL (36.4-46.3); Red Blood Count 3.82 M/uL (4.20-5.40); White Blood Count 11.17 K/ul (4.8-10.8)
[2023-01-09 19:48] LABS: Alanine Aminotransferase 23 U/L (7-52); Albumin Globulin Ratio 1.2 (0.9-2); Albumin Level 3.8 gm/dl (3.4-5.0); Alkaline Phosphatase 125 U/L (34-104); Anion Gap 10 (3-11); Aspartate Aminotransferase 33 U/L (13-39); BUN Creatinine Ratio 11.3 (10-20); Bilirubin,Total 0.6 mg/dl (0.2-1.0); Blood Urea Nitrogen 7 mg/dl (6-23); Calcium 9.7 mg/dl (8.6-10.3); Carbon Dioxide 26 mmol/L (21-32); Chloride 91 mmol/L (98-107); Est GFR (African American) 105.1 ml/min; Est GFR (Non-African American) 90.7 ml/min; Globulin 3.2 gm/dl (2.5-4.0); Glucose 82 mg/dl (70-99(Fasting)); Potassium 3.4 mmol/L (3.5-5.1); Sodium 127 mmol/L (136-145)
[2023-01-09 19:54] LABS: Troponin I High Sensitivity 15.4 pg/ml (0-14)
[2023-01-09 20:08] LABS: INR 0.9 (0.9-1.1); Partial Thromboplastin Ratio 0.9; Partial Thromboplastin Time 26.7 Seconds (21.0-31.0); Prothrombin Time 10.2 Seconds (9.0-12.0)
--- NOTE | 2023-01-09 21:22 | CT Scan Report ---
Exam(s): CT C SPINE EXAM: CT Cervical Spine Without Intravenous Contrast CLINICAL HISTORY: Reason for exam: fall. TECHNIQUE: Axial computed tomography images of the cervical spine without intravenous contrast. CTDI is 21.22 mGy and DLP is 443.22 mGy-cm. Automated exposure control was utilized for the study. A dose lowering technique was utilized adhering to the principles of ALARA. COMPARISON: No relevant prior studies available. FINDINGS: The vertebral body heights are maintained. The craniocervical junction is intact. The atlanto-dens interval is maintained. The dens is intact. There is no spondylolisthesis. Multilevel cervical spondylosis and degenerative disc disease. Straightening of the cervical lordosis. The unenhanced neck soft tissues are grossly unremarkable. The visualized lung apices are grossly clear. IMPRESSION: No acute fracture or subluxation of the cervical spine. Electronically signed by: Humberto Subramanian MD 01/09/23 21:22 PM
--- NOTE | 2023-01-09 21:22 | CT Scan Report ---
Exam(s): CT HEAD Without Contrast EXAM: CT Head Without Intravenous Contrast CLINICAL HISTORY: Reason for exam: fall. TECHNIQUE: Axial computed tomography images of the head/brain without intravenous contrast. CTDI is 36.55 mGy and DLP is 624.41 mGy-cm. Automated exposure control was utilized for the study. A dose lowering technique was utilized adhering to the principles of ALARA. COMPARISON: No relevant prior studies available. FINDINGS: No acute intracranial hemorrhage. No midline shift or mass effect. The territorial garcia-white matter differentiation is maintained throughout. Age-related cerebral volume loss. Periventricular and subcortical white matter hypoattenuation, consistent with chronic microangiopathy. The visualized orbits appear grossly unremarkable. The calvarium is intact. The visualized paranasal sinuses and mastoid air cells are grossly clear. IMPRESSION: No acute intracranial hemorrhage, midline shift, or mass effect. Electronically signed by: Humberto Subramanian MD 01/09/23 21:21 PM
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
[2023-01-09] MEDS ORDERED: LORazepam 1 MG/1 ML SYR ED Inj Use IV STA (23:48)
--- NOTE | 2023-01-10 00:37 | History & Physical Report ---
Date of Service January 10, 2023 Assessment & Plan (1) Fall: Plan: 72-year-old female with past medical history significant for hyperlipidemia, hypothyroidism, hypertension, GERD, gout arthropathy, osteoarthritis, carpal tunnel syndrome, osteoporosis, selective deficiency of immunoglobulin IgG, s/p bilateral carotid endarterectomy, depression, ongoing tobacco abuse smokes 1 packs a day, ongoing alcoholism says drinks 6-7 beers daily comes because of fall and also found to hyponatremia. Fall Frequent falls Hit her head CT head and cervical spine CT okay PT OT when stable Hyponatremia Sodium 127 Mostly beer potomania Getting gentle fluids Follow repeat labs Mild elevation troponin EKG okay No chest pain. Has some shortness of breath on exertion We will follow serial enzymes and echo If any concerns will consult cardiology Alcoholism Drinks to 6-7 beers daily Alcohol withdrawal protocol with gabapentin and IV Ativan as needed Banana bag IV thiamine IV folic acid daily. Continue home with multivitamins Close monitor for withdrawal Hypertension Continue amlodipine and losartan We will monitor History of gout On allopurinol Hyperlipidemia On statin Depression On venlafaxine DVT prophylaxis Heparin subcu Disposition Med/telemetry Full code History of Present Illness Chief Complaint: Fall Primary Care Provider: Demetra Bowman DO 72-year-old female with past medical history significant for hyperlipidemia, hypothyroidism, hypertension, GERD, gout arthropathy, osteoarthritis, carpal tunnel syndrome, osteoporosis, selective deficiency of immunoglobulin IgG, s/p bilateral carotid endarterectomy, depression, ongoing tobacco abuse smokes 1 packs a day, ongoing alcoholism says drinks 6-7 beers daily comes because of fall. Patient states since last April she is falling frequently. Having ambulatory dysfunction. She uses her furniture to walk in the house and also uses walker. Today she was getting into the car when she trapped in the car door and she fell backwards and hit her back of the Head. No loss of consciousness. Got up with assistance. Denies any headache. She states sometimes she gets disoriented while ambulating. She lives with her . Currently her on hospice. Daughter lives close by. Says vision is okay. Has some sinus drainage. Has smoker's cough. Appetite is down. Says lost about 25 pounds in last 3 months. No difficulty swallowing. No chest pain. Has shortness of breath on exertion. No nausea. No abdominal pain. Normal bowel and bladder movements. Currently resting comfortably and hemodynamically stable. Past medical history. As mentioned above Past surgical history. Bilateral carotid endarterectomy. Colonoscopy. Social history. . Smokes 1 pack a day. Drinks alcohol 6-7 beers daily. No drug use. Family history. Father had leukemia. Mother had diabetes and hypertension Allergies Allergy/AdvReac Type Severity Reaction Status Date / Time nickel Allergy Intermediate Rash, itchy Verified 01/09/23 23:39 Home Medications Medication Instructions Recorded Confirmed Type allopurinol 300 mg tablet 300 mg PO HS 11/15/18 01/09/23 History atorvastatin 80 mg tablet 80 mg PO HS 11/15/18 01/09/23 History levothyroxine 50 mcg tablet 50 mcg PO QAM 11/15/18 01/09/23 History pantoprazole 20 mg tablet,delayed 20 mg PO DAILY PRN Heartburn 07/31/21 01/09/23 History release venlafaxine 150 mg 150 mg PO QAM 07/31/21 01/09/23 History capsule,extended release 24 hr [id number]-Ca carb-vit K 1 tab PO DAILY 01/06/22 01/09/23 History 18 mg iron-400 mcg-500 mg tablet (Women's Daily Formula) amlodipine 5 mg tablet 5 mg PO DAILY 01/16/22 01/09/23 History losartan 100 mg tablet 100 mg PO DAILY 01/16/22 01/09/23 History Past Med/Surg History Medical History Carotid artery disease Depression Dyslipidemia Gout History of colonic polyps Hypertension Surgical History S/P wisdom tooth extraction S/P tubal ligation History of carotid endarterectomy Family History Mother Hypertension Dementia Dyslipidemia Father , age 70 of leukemia. 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 ENT- oropharynx clear Neck- supple, no JVD. Lungs- clear to auscultation , no wheezing or crackles. Heart- regular rate and rhythm; no murmur, no gallop. Abdomen- normal bowel sounds, soft, nontender, no distension. Extremities- no pretibial edema, no erythema seen. Neuro- alert, oriented x 3; PERRL, no facial palsy; no dysarthria; motor 5/5 bilaterally; . Skin- warm & dry Results & Data Results & Data Vital Signs (Past 12 Hours) Vital Signs Temp Pulse Pulse Resp BP BP Pulse Ox 01/10/23 00:11 89 18 149/78 H 98 01/09/23 19:00 36.3 C L 85 18 161/85 H 100 O2 Del Method 01/10/23 00:11 Room Air 01/09/23 19:00 Room Air Diagnostic Findings Laboratory Results WBC 11.17 K/ul (4.8-10.8) H 01/09/23 19:11 RBC 3.82 M/uL (4.20-5.40) L 01/09/23 19:11 Hgb 13.0 g/dl (12.0-16.0) 01/09/23 19:11 Hct 35.3 % (37.0-47.0) L 01/09/23 19:11 MCV 92.4 fL (80.0-100.0) 01/09/23 19:11 MCH 34.0 pg (25.0-34.0) 01/09/23 19:11 MCHC 36.8 g/dL (32.0-36.0) H 01/09/23 19:11 RDW Std Deviation 41.8 fL (36.4-46.3) 01/09/23 19:11 RDW Coeff of Becky 12.4 % (11.5-14.5) 01/09/23 19:11 Plt Count 472 K/uL (130-400) H 01/09/23 19:11 MPV 9.0 fL (9.4-12.4) L 01/09/23 19:11 Immature Gran % (Auto) 0.4 % 01/09/23 19:11 Neut % (Auto) 71.6 % 01/09/23 19:11 Lymph % (Auto) 17.3 % 01/09/23 19:11 [place] % (Auto) 9.9 % 01/09/23 19:11 Eos % (Auto) 0.5 % 01/09/23 19:11 Baso % (Auto) 0.3 % 01/09/23 19:11 Neut # (Auto) 8.00 K/uL (1.40-6.50) H 01/09/23 19:11 Lymph # (Auto) 1.93 K/uL (1.20-3.40) 01/09/23 19:11 [place] # (Auto) 1.11 K/uL (0.11-0.59) H 01/09/23 19:11 Eos # (Auto) 0.06 K/uL (0.00-0.50) 01/09/23 19:11 Baso # (Auto) 0.03 K/uL (0.00-0.20) 01/09/23 19:11 Immature Gran # (Auto) 0.04 K/uL (0.01-0.20) 01/09/23 19:11 PT 10.2 Seconds (9.0-12.0) 01/09/23 19:11 INR 0.9 (0.9-1.1) 01/09/23 19:11 APTT 26.7 Seconds (21.0-31.0) 01/09/23 19:11 PTT Ratio 0.9 01/09/23 19:11 Sodium 127 mmol/L (136-145) L 01/09/23 19:11 Potassium 3.4 mmol/L (3.5-5.1) L 01/09/23 19:11 Chloride 91 mmol/L (98-107) L 01/09/23 19:11 Carbon Dioxide 26 mmol/L (21-32) 01/09/23 19:11 Anion Gap 10 (3-11) 01/09/23 19:11 BUN 7 mg/dl (6-23) 01/09/23 19:11 Creatinine 0.62 mg/dl (0.6-1.2) 01/09/23 19:11 Est Cr Clr Drug Dosing Not Reportable 01/09/23 19:11 Est GFR ( Amer) 105.1 ml/min 01/09/23 19:11 Est GFR (Non-Af Amer) 90.7 ml/min 01/09/23 19:11 BUN/Creatinine Ratio 11.3 (10-20) 01/09/23 19:11 Glucose 82 mg/dl (70-99(Fasting)) 01/09/23 19:11 Calcium 9.7 mg/dl (8.6-10.3) 01/09/23 19:11 Total Bilirubin 0.6 mg/dl (0.2-1.0) 01/09/23 19:11 AST 33 U/L (13-39) 01/09/23 19:11 ALT 23 U/L (7-52) 01/09/23 19:11 Alkaline Phosphatase 125 U/L (34-104) H 01/09/23 19:11 Troponin I High Sens 15.4 pg/ml (0-14) H 01/09/23 19:11 Total Protein 7.0 gm/dl (6.0-8.3) 01/09/23 19:11 Albumin 3.8 gm/dl (3.4-5.0) 01/09/23 19:11 Globulin 3.2 gm/dl (2.5-4.0) 01/09/23 19:11 Albumin/Globulin Ratio 1.2 (0.9-2) 01/09/23 19:[address] 01/09/23 19:04 Exam(s): CT C SPINE EXAM: CT Cervical Spine Without Intravenous Contrast CLINICAL HISTORY: Reason for exam: fall. TECHNIQUE: Axial computed tomography images of the cervical spine without intravenous contrast. CTDI is 21.22 mGy and DLP is 443.22 mGy-cm. Automated exposure control was utilized for the study. A dose lowering technique was utilized adhering to the principles of ALARA. COMPARISON: No relevant prior studies available. FINDINGS: The vertebral body heights are maintained. The craniocervical junction is intact. The atlanto-dens interval is maintained. The dens is intact. There is no spondylolisthesis. Multilevel cervical spondylosis and degenerative disc disease. Straightening of the cervical lordosis. The unenhanced neck soft tissues are grossly unremarkable. The visualized lung apices are grossly clear. IMPRESSION: No acute fracture or subluxation of the cervical spine. Electronically signed by: Humberto Subramanian MD 01/09/23 21:[address] 01/09/23 19:04 Exam(s): CT HEAD Without Contrast EXAM: CT Head Without Intravenous Contrast CLINICAL HISTORY: Reason for exam: fall. TECHNIQUE: Axial computed tomography images of the head/brain without intravenous contrast. CTDI is 36.55 mGy and DLP is 624.41 mGy-cm. Automated exposure control was utilized for the study. A dose lowering technique was utilized adhering to the principles of ALARA. COMPARISON: No relevant prior studies available. FINDINGS: No acute intracranial hemorrhage. No midline shift or mass effect. The territorial garcia-white matter differentiation is maintained throughout. Age-related cerebral volume loss. Periventricular and subcortical white matter hypoattenuation, consistent with chronic microangiopathy. The visualized orbits appear grossly unremarkable. The calvarium is intact. The visualized paranasal sinuses and mastoid air cells are grossly clear. IMPRESSION: No acute intracranial hemorrhage, midline shift, or mass effect. Electronically signed by: Humberto Subramanian MD 01/09/23 21:21 PM ECG Additional Comments: ECG. Normal sinus rhythm with rate of 87. No acute ST changes seen. Code Status & VTE Plan VTE Prophylaxis Plan VTE Prophylaxis will be ordered: Yes
[2023-01-10] MEDS ORDERED: LORazepam 3 MG in SYRINGE 1.5 ML IV PRN (01:36)
[2023-01-10] MEDS ORDERED: MULTI-VITAMIN INFUSION 10 ML, THIAMINE HCL 100 MG, FOLIC ACID 1 MG in SODIUM CHLORIDE 0... IV ONE (01:36)
[2023-01-10] MEDS ORDERED: SODIUM CHLORIDE 0.9% 1,000 ML IV SCH (01:36)
[2023-01-10] MEDS ORDERED: GABAPENTIN 600 MG TAB PO ONE (01:36)
[2023-01-10] MEDS ORDERED: POLYETHYLENE (MIRALAX) 17 GM PACK PO PRN (01:36)
[2023-01-10] MEDS ORDERED: LORazepam 2 MG in SYRINGE 1 ML IV PRN (01:36)
[2023-01-10] MEDS ORDERED: NITROGLYCERIN SL 0.4 MG/TAB TAB SL PRN (01:36)
[2023-01-10] MEDS ORDERED: Ativan IV Alcohol Withdrawal--Active Protocol IV PRN (01:36)
[2023-01-10] MEDS ORDERED: LORazepam 1 MG in SYRINGE 0.5 ML IV PRN (01:36)
[2023-01-10] MEDS ORDERED: GABAPENTIN 1200MG ALCOHOL WITHDRAWAL LOAD PO STA (01:36)
[2023-01-10] MEDS: LEVOTHYROXINE SODIUM 50 MCG TABLET PO SCH (07:59)
[2023-01-10 08:01] LABS: Basophils # (auto) 0.03 K/uL (0.00-0.20); Basophils % (auto) 0.4 %; Eosinophils # (auto) 0.08 K/uL (0.00-0.50); Hematocrit (blood only) 35.4 % (37.0-47.0); Hemoglobin 12.5 g/dl (12.0-16.0); Immature Granulocytes # (auto) 0.04 K/uL (0.01-0.20); Immature Granulocytes % (auto) 0.5 %; Lymphocytes # (auto) 2.24 K/uL (1.20-3.40); Lymphocytes % (auto) 27.4 %; Mean Corpuscular Hemoglobin 33.5 pg (25.0-34.0); Mean Corpuscular Hgb Conc 35.3 g/dL (32.0-36.0); Mean Corpuscular Volume 94.9 fL (80.0-100.0); Mean Platelet Volume 9.3 fL (9.4-12.4); Monocytes # (auto) 0.99 K/uL (0.11-0.59); Monocytes % (auto) 12.1 %; Neutrophils % (auto) 58.6 %; Platelet Count 463 K/uL (130-400); RDW Coefficient of Variation 12.5 % (11.5-14.5); RDW Standard Deviation 43.4 fL (36.4-46.3); Red Blood Count 3.73 M/uL (4.20-5.40); White Blood Count 8.18 K/ul (4.8-10.8)
[2023-01-10 08:14] LABS: Anion Gap 6 (3-11); BUN Creatinine Ratio 11.1 (10-20); Blood Urea Nitrogen 6 mg/dl (6-23); Calcium 9.1 mg/dl (8.6-10.3); Carbon Dioxide 28 mmol/L (21-32); Chloride 100 mmol/L (98-107); Est GFR (Non-African American) 94.9 ml/min; Glucose 74 mg/dl (70-99(Fasting)); Magnesium 1.3 mg/dl (1.7-2.4); Potassium 3.2 mmol/L (3.5-5.1); Sodium 134 mmol/L (136-145)
[2023-01-10 08:24] LABS: Troponin I High Sensitivity 10.8 pg/ml (0-14)
[2023-01-10] MEDS: HEPARIN SOD 5,000 UNIT/0.5 ML VIAL SQ SCH ×2 (08:49→20:43)
[2023-01-10] MEDS: FOLIC ACID 1 MG in SYRINGE 9.8 ML IV SCH (08:50)
[2023-01-10] MEDS: THIAMINE HCL 100 MG in SYRINGE 9 ML IV SCH (08:50)
--- NOTE | 2023-01-10 11:20 | Communication Note ---
Date of Service: January 10, 2023 Patient admitted to the hospital due to concern for fall and was found to have hyponatremia. She is comfortably lying in the bed and is sleeping. She is easily awake able. She denies any pain or discomfort. Continue alcohol withdrawal protocol. Monitor daily electrolytes
[2023-01-10] MEDS: amLODIPine BESYLATE 5 MG TAB PO SCH (11:24)
[2023-01-10] MEDS: LOSARTAN POTASSIUM 50 MG TAB PO SCH (11:25)
[2023-01-10] MEDS: MULTIVITAMIN TAB PO SCH (11:25)
[2023-01-10] MEDS: GABAPENTIN 600 MG TAB PO SCH ×3 (11:25→20:40)
[2023-01-10] MEDS: VENLAFAXINE HCL XR 150 MG CAPXR PO SCH (11:26)
[2023-01-10] MEDS: MAGNESIUM SULFATE / D5W 1 GM/100 ML BAG IV SCH ×2 (13:40→16:19)
[2023-01-10] MEDS: POTASSIUM CHLORIDE CRTAB 20 MEQ TABCR PO SCH (13:41)
[2023-01-10] MEDS ORDERED: PNEUMOCOCCAL VACCINE (PCV20) 20-VAL CONJ-DIP CRM/PF 0.5 ML SYR IM ONE (14:00)
[2023-01-10] MEDS: traMADol HCL 50 MG TABLET PO PRN (18:00)
[2023-01-10] MEDS: ATORVASTATIN 40 MG TAB PO SCH (20:39)
[2023-01-10] MEDS: allopurinoL 300 MG TAB PO SCH (20:40)
[2023-01-10] MEDS: NICOTINE 21 MG/24 HR TDSY TD SCH (20:41)
[2023-01-11] MEDS: LEVOTHYROXINE SODIUM 50 MCG TABLET PO SCH (06:22)
[2023-01-11] MEDS: GABAPENTIN 600 MG TAB PO SCH ×3 (06:22→15:15)
[2023-01-11 08:02] LABS: Basophils # (auto) 0.04 K/uL (0.00-0.20); Basophils % (auto) 0.5 %; Eosinophils # (auto) 0.09 K/uL (0.00-0.50); Eosinophils % (auto) 1.2 %; Hematocrit (blood only) 32.3 % (37.0-47.0); Hemoglobin 11.3 g/dl (12.0-16.0); Immature Granulocytes # (auto) 0.02 K/uL (0.01-0.20); Immature Granulocytes % (auto) 0.3 %; Lymphocytes # (auto) 2.01 K/uL (1.20-3.40); Lymphocytes % (auto) 27.4 %; Mean Corpuscular Hemoglobin 33.8 pg (25.0-34.0); Mean Corpuscular Volume 96.7 fL (80.0-100.0); Mean Platelet Volume 9.3 fL (9.4-12.4); Monocytes # (auto) 0.89 K/uL (0.11-0.59); Monocytes % (auto) 12.1 %; Neutrophils # (auto) 4.29 K/uL (1.40-6.50); Neutrophils % (auto) 58.5 %; Platelet Count 412 K/uL (130-400); RDW Coefficient of Variation 12.8 % (11.5-14.5); RDW Standard Deviation 45.1 fL (36.4-46.3); Red Blood Count 3.34 M/uL (4.20-5.40); White Blood Count 7.34 K/ul (4.8-10.8)
[2023-01-11 08:31] LABS: Calcium 9.1 mg/dl (8.6-10.3); Magnesium 1.5 mg/dl (1.7-2.4); Potassium 3.6 mmol/L (3.5-5.1)
[2023-01-11 08:37] LABS: BUN Creatinine Ratio 14.5 (10-20); Creatinine Clr Calc Pharmacy 84.4 ml/min; Est GFR (African American) 109.4 ml/min; Est GFR (Non-African American) 94.4 ml/min
[2023-01-11] MEDS: PANTOprazole 40 MG TAB PO PRN (09:53)
[2023-01-11] MEDS: VENLAFAXINE HCL XR 150 MG CAPXR PO SCH (09:54)
[2023-01-11] MEDS: amLODIPine BESYLATE 5 MG TAB PO SCH (09:54)
[2023-01-11] MEDS: NICOTINE 21 MG/24 HR TDSY TD SCH (09:54)
[2023-01-11] MEDS: MULTIVITAMIN TAB PO SCH (09:54)
[2023-01-11] MEDS: POTASSIUM CHLORIDE CRTAB 20 MEQ TABCR PO SCH (09:54)
[2023-01-11] MEDS: LOSARTAN POTASSIUM 50 MG TAB PO SCH (09:54)
[2023-01-11] MEDS: HEPARIN SOD 5,000 UNIT/0.5 ML VIAL SQ SCH ×2 (10:05→19:59)
[2023-01-11] MEDS: THIAMINE HCL 100 MG in SYRINGE 9 ML IV SCH (10:05)
[2023-01-11] MEDS: FOLIC ACID 1 MG in SYRINGE 9.8 ML IV SCH (10:05)
[2023-01-11] MEDS: traMADol HCL 50 MG TABLET PO PRN ×2 (10:06→20:18)
--- NOTE | 2023-01-11 13:30 | Hospitalist Progress Note ---
Date of Service January 11, 2023 Assessment & Plan (1) Fall: Plan: 72-year-old female with past medical history significant for hyperlipidemia, hypothyroidism, hypertension, GERD, gout arthropathy, osteoarthritis, carpal tunnel syndrome, osteoporosis, selective deficiency of immunoglobulin IgG, s/p bilateral carotid endarterectomy, depression, ongoing tobacco abuse smokes 1 packs a day, ongoing alcoholism says drinks 6-7 beers daily comes because of fall and also found to hyponatremia. Mechanical fall Ambulatory dysfunction Patient presents to the hospital with multiple falls CT head without contrastno acute finding Cervical spine CTno acute finding PT OT eval-home PT OT's versus rehab Hyponatremia Sodium 127 on presentation Improved with IV hydration History of chronic hyponatremia; sodium of 131 today. Alcohol use disorder Alcohol withdrawal History of alcohol use disorder Continue alcohol withdrawal protocol with gabapentin and IV Ativan Continue thiamine and folic acid Elevated high-sensitivity troponin of undetermined significance Troponin elevated to 15, down trended Echocardiogram results reviewed; EF of 65 to 70% Hypomagnesemia Secondary to alcohol use disorder. Continue supplement Hypertension Continue amlodipine and losartan We will monitor History of gout On allopurinol, continue Hyperlipidemia On statin, continue Depression On venlafaxine, continue DVT prophylaxis Heparin subcu Dispositionpatient hospitalized for hyponatremia, alcohol withdrawal. PT OT pending; may need rehab. Discussed with daughter at bedside. Answered questions/queries Time spent evaluating patient, direct bedside care, chart review, placing orders, interpretation of diagnostic studies, discussion with consultants, patient, and family members, as well as other required patient management activities is 60 minutes Please note the above document was generated using voice recognition software. It may contain grammatical, syntax or spelling errors. Any formal questions or concerns about the content, text or information contained within the body of this dictation should be directly addressed to the provider for clarification Admission and Anticipated Discharge Date Admission Date: January 10, 2023 Subjective Patient seen and examined at bedside. She is lying in the bed comfortably; not in distress. No signs or symptoms of alcohol withdrawal. Review of Systems Review of Systems: All systems reviewed & are unremarkable except as noted in Subjective Results & Data Results & Data Vital Signs (Past 12 Hours) Vital Signs Temp Pulse Resp BP Pulse Ox O2 Del Method 01/11/23 12:03 36.5 C 82 18 106/67 97 Room Air 01/11/23 10:09 86 110/70 01/11/23 07:58 36.5 C 75 18 111/69 96 Room Air 01/11/23 04:41 36.7 C 83 18 108/66 96 Room Air Laboratory Results Laboratory Results WBC 7.34 K/ul (4.8-10.8) 01/11/23 07:11 RBC 3.34 M/uL (4.20-5.40) L 01/11/23 07:11 Hgb 11.3 g/dl (12.0-16.0) L 01/11/23 07:11 Hct 32.3 % (37.0-47.0) L 01/11/23 07:11 MCV 96.7 fL (80.0-100.0) 01/11/23 07:11 MCH 33.8 pg (25.0-34.0) 01/11/23 07:11 MCHC 35.0 g/dL (32.0-36.0) 01/11/23 07:11 RDW Std Deviation 45.1 fL (36.4-46.3) 01/11/23 07:11 RDW Coeff of Becky 12.8 % (11.5-14.5) 01/11/23 07:11 Plt Count 412 K/uL (130-400) H 01/11/23 07:11 MPV 9.3 fL (9.4-12.4) L 01/11/23 07:11 Immature Gran % (Auto) 0.3 % 01/11/23 07:11 Neut % (Auto) 58.5 % 01/11/23 07:11 Lymph % (Auto) 27.4 % 01/11/23 07:11 [place] % (Auto) 12.1 % 01/11/23 07:11 Eos % (Auto) 1.2 % 01/11/23 07:11 Baso % (Auto) 0.5 % 01/11/23 07:11 Neut # (Auto) 4.29 K/uL (1.40-6.50) 01/11/23 07:11 Lymph # (Auto) 2.01 K/uL (1.20-3.40) 01/11/23 07:11 [place] # (Auto) 0.89 K/uL (0.11-0.59) H 01/11/23 07:11 Eos # (Auto) 0.09 K/uL (0.00-0.50) 01/11/23 07:11 Baso # (Auto) 0.04 K/uL (0.00-0.20) 01/11/23 07:11 Immature Gran # (Auto) 0.02 K/uL (0.01-0.20) 01/11/23 07:11 PT 10.2 Seconds (9.0-12.0) 01/09/23 19:11 INR 0.9 (0.9-1.1) 01/09/23 19:11 APTT 26.7 Seconds (21.0-31.0) 01/09/23 19:11 PTT Ratio 0.9 01/09/23 19:11 Sodium 131 mmol/L (136-145) L 01/11/23 07:11 Potassium 3.6 mmol/L (3.5-5.1) 01/11/23 07:11 Chloride 96 mmol/L (98-107) L 01/11/23 07:11 Carbon Dioxide 29 mmol/L (21-32) 01/11/23 07:11 Anion Gap 6 (3-11) 01/11/23 07:11 BUN 8 mg/dl (6-23) 01/11/23 07:11 Creatinine 0.55 mg/dl (0.6-1.2) L 01/11/23 07:11 Est Cr Clr Drug Dosing 84.4 ml/min 01/11/23 07:11 Est GFR ( Amer) 109.4 ml/min 01/11/23 07:11 Est GFR (Non-Af Amer) 94.4 ml/min 01/11/23 07:11 BUN/Creatinine Ratio 14.5 (10-20) 01/11/23 07:11 Glucose 87 mg/dl (70-99(Fasting)) 01/11/23 07:11 Calcium 9.1 mg/dl (8.6-10.3) 01/11/23 07:11 Magnesium 1.5 mg/dl (1.7-2.4) L 01/11/23 07:11 Total Bilirubin 0.6 mg/dl (0.2-1.0) 01/09/23 19:11 AST 33 U/L (13-39) 01/09/23 19:11 ALT 23 U/L (7-52) 01/09/23 19:11 Alkaline Phosphatase 125 U/L (34-104) H 01/09/23 19:11 Troponin I High Sens 10.9 pg/ml (0-14) 01/10/23 13:05 Total Protein 7.0 gm/dl (6.0-8.3) 01/09/23 19:11 Albumin 3.8 gm/dl (3.4-5.0) 01/09/23 19:11 Globulin 3.2 gm/dl (2.5-4.0) 01/09/23 19:11 Albumin/Globulin Ratio 1.2 (0.9-2) 01/09/23 19:11 Vitamin B12 Cancelled 01/10/23 06:58 Folate Cancelled 01/10/23 06:58 Miscellaneous Test REPORT 01/09/23 19:[address] 01/09/23 19:04 Exam(s): CT C SPINE EXAM: CT Cervical Spine Without Intravenous Contrast CLINICAL HISTORY: Reason for exam: fall. TECHNIQUE: Axial computed tomography images of the cervical spine without intravenous contrast. CTDI is 21.22 mGy and DLP is 443.22 mGy-cm. Automated exposure control was utilized for the study. A dose lowering technique was utilized adhering to the principles of ALARA. COMPARISON: No relevant prior studies available. FINDINGS: The vertebral body heights are maintained. The craniocervical junction is intact. The atlanto-dens interval is maintained. The dens is intact. There is no spondylolisthesis. Multilevel cervical spondylosis and degenerative disc disease. Straightening of the cervical lordosis. The unenhanced neck soft tissues are grossly unremarkable. The visualized lung apices are grossly clear. IMPRESSION: No acute fracture or subluxation of the cervical spine. Electronically signed by: Humberto Subramanian MD 01/09/23 21:[address] 01/09/23 19:04 Exam(s): CT HEAD Without Contrast EXAM: CT Head Without Intravenous Contrast CLINICAL HISTORY: Reason for exam: fall. TECHNIQUE: Axial computed tomography images of the head/brain without intravenous contrast. CTDI is 36.55 mGy and DLP is 624.41 mGy-cm. Automated exposure control was utilized for the study. A dose lowering technique was utilized adhering to the principles of ALARA. COMPARISON: No relevant prior studies available. FINDINGS: No acute intracranial hemorrhage. No midline shift or mass effect. The territorial garcia-white matter differentiation is maintained throughout. Age-related cerebral volume loss. Periventricular and subcortical white matter hypoattenuation, consistent with chronic microangiopathy. The visualized orbits appear grossly unremarkable. The calvarium is intact. The visualized paranasal sinuses and mastoid air cells are grossly clear. IMPRESSION: No acute intracranial hemorrhage, midline shift, or mass effect. Electronically signed by: Humberto Subramanian MD 01/09/23 21:21 PM
--- NOTE | 2023-01-11 19:36 | Electrocardiogram Report ---
Test Reason : Blood Pressure : / mmHG Vent. Rate : 087 BPM Atrial Rate : 087 BPM P-R Int : 160 ms QRS Dur : 076 ms QT Int : 354 ms P-R-T Axes : 078 067 071 degrees QTc Int : 425 ms Normal sinus rhythm Septal infarct (cited on or before 18-JAN-2007) Abnormal ECG When compared with ECG of 15-NOV-2018 19:21, Questionable change in QRS axis Confirmed by Lorenzo Gibson ([id number] on 01/11/2023 7:35:52 PM Referred By: REFERRED SELF Confirmed By:Lorenzo Gibson
[2023-01-11] MEDS: allopurinoL 300 MG TAB PO SCH (19:58)
[2023-01-11] MEDS: ATORVASTATIN 40 MG TAB PO SCH (19:59)
[2023-01-12] MEDS: LEVOTHYROXINE SODIUM 50 MCG TABLET PO SCH (05:52)
[2023-01-12 08:44] LABS: Basophils # (auto) 0.04 K/uL (0.00-0.20); Basophils % (auto) 0.6 %; Eosinophils # (auto) 0.07 K/uL (0.00-0.50); Hematocrit (blood only) 33.7 % (37.0-47.0); Hemoglobin 11.7 g/dl (12.0-16.0); Immature Granulocytes # (auto) 0.03 K/uL (0.01-0.20); Immature Granulocytes % (auto) 0.4 %; Lymphocytes # (auto) 1.57 K/uL (1.20-3.40); Lymphocytes % (auto) 21.8 %; Mean Corpuscular Hemoglobin 33.4 pg (25.0-34.0); Mean Corpuscular Hgb Conc 34.7 g/dL (32.0-36.0); Mean Corpuscular Volume 96.3 fL (80.0-100.0); Mean Platelet Volume 9.5 fL (9.4-12.4); Monocytes # (auto) 0.88 K/uL (0.11-0.59); Monocytes % (auto) 12.2 %; Neutrophils # (auto) 4.61 K/uL (1.40-6.50); Platelet Count 413 K/uL (130-400); RDW Coefficient of Variation 12.7 % (11.5-14.5); RDW Standard Deviation 44.6 fL (36.4-46.3)
[2023-01-12 08:52] LABS: BUN Creatinine Ratio 13.3 (10-20); Calcium 8.9 mg/dl (8.6-10.3); Creatinine Clr Calc Pharmacy 77.4 ml/min; Est GFR (African American) 106.3 ml/min; Est GFR (Non-African American) 91.7 ml/min; Potassium 3.7 mmol/L (3.5-5.1)
[2023-01-12] MEDS: PANTOprazole 40 MG TAB PO PRN (09:15)
[2023-01-12] MEDS: amLODIPine BESYLATE 5 MG TAB PO SCH (09:15)
[2023-01-12] MEDS: HEPARIN SOD 5,000 UNIT/0.5 ML VIAL SQ SCH (09:15)
[2023-01-12] MEDS: VENLAFAXINE HCL XR 150 MG CAPXR PO SCH (09:15)
[2023-01-12] MEDS: POTASSIUM CHLORIDE CRTAB 20 MEQ TABCR PO SCH (09:15)
[2023-01-12] MEDS: NICOTINE 21 MG/24 HR TDSY TD SCH (09:15)
[2023-01-12] MEDS: MULTIVITAMIN TAB PO SCH (09:16)
[2023-01-12] MEDS: THIAMINE HCL 100 MG in SYRINGE 9 ML IV SCH (09:16)
[2023-01-12] MEDS: LOSARTAN POTASSIUM 50 MG TAB PO SCH (09:16)
[2023-01-12] MEDS: FOLIC ACID 1 MG in SYRINGE 9.8 ML IV SCH (09:16)
[2023-01-12] MEDS: GABAPENTIN 600 MG TAB PO SCH (13:06)
--- NOTE | 2023-01-12 14:19 | Discharge Summary ---
Date of Service January 12, 2023 Admission HPI Per Admitting Provider 72-year-old female with past medical history significant for hyperlipidemia, hypothyroidism, hypertension, GERD, gout arthropathy, osteoarthritis, carpal tunnel syndrome, osteoporosis, selective deficiency of immunoglobulin IgG, s/p bilateral carotid endarterectomy, depression, ongoing tobacco abuse smokes 1 packs a day, ongoing alcoholism says drinks 6-7 beers daily comes because of fall. Patient states since last April she is falling frequently. Having ambulatory dysfunction. She uses her furniture to walk in the house and also uses walker. Today she was getting into the car when she trapped in the car door and she fell backwards and hit her back of the Head. No loss of consciousness. Got up with assistance. Denies any headache. She states sometimes she gets disoriented while ambulating. She lives with her . Currently her on hospice. Daughter lives close by. Says vision is okay. Has some sinus drainage. Has smoker's cough. Appetite is down. Says lost about 25 pounds in last 3 months. No difficulty swallowing. No chest pain. Has shortness of breath on exertion. No nausea. No abdominal pain. Normal bowel and bladder movements. Currently resting comfortably and hemodynamically stable. Past medical history. As mentioned above Past surgical history. Bilateral carotid endarterectomy. Colonoscopy. Social history. . Smokes 1 pack a day. Drinks alcohol 6-7 beers daily. No drug use. Family history. Father had leukemia. Mother had diabetes and hypertension Admission Exam Per Admitting Provider General- Not in distress Head- atraumatic Eyes- PERRL. ENT- oropharynx clear Neck- supple, no JVD. Lungs- clear to auscultation , no wheezing or crackles. Heart- regular rate and rhythm; no murmur, no gallop. Abdomen- normal bowel sounds, soft, nontender, no distension. Extremities- no pretibial edema, no erythema seen. Neuro- alert, oriented x 3; PERRL, no facial palsy; no dysarthria; motor 5/5 bilaterally; . Skin- warm & dry Principal Diagnosis Mechanical fall Hyponatremia Alcohol use disorder Alcohol withdrawal Discharge Exam Constitutional: Alert orient x3; not in distress. No signs of alcohol withdrawal. No tremors. Respiratory: normal respiratory effort, lungs clear to auscultation, no wheeze, rales, rhonchi. Normal insp/exp effort, no accessory muscle use Cardiovascular: RRR, no murmur, no edema Vessels: no JVD or carotid bruit Chest: normal inspection of chest Abdomen: normal bowel sounds, soft, nontender, no hepatosplenomegaly Musculoskeletal: no cyanosis or clubbing, extremities motor strength 5/5 Skin: no rashes, warm and dry normal turgor Neurologic: PERRL, EOMI, accommodation nl, no face palsy, no dysarthria CN's II- XI intact bilaterally and moves all extremities Psychiatric: A+Ox3, euthymic affect Discharge Data Allergies Allergy/AdvReac Type Severity Reaction Status Date / Time nickel Allergy Intermediate Rash, itchy Verified 01/09/23 23:39 Consultations 01/09/23 23:32 ED Decision to Admit Stat Ordered Studies 01/09/23 19:04 CT head/brain wo con Stat CT neck [CT cervical spine wo con] Stat Hospital Course (1) Fall: 72-year-old female with past medical history significant for hyperlipidemia, hypothyroidism, hypertension, GERD, gout arthropathy, osteoarthritis, carpal tunnel syndrome, osteoporosis, selective deficiency of immunoglobulin IgG, s/p bilateral carotid endarterectomy, depression, ongoing tobacco abuse smokes 1 packs a day, ongoing alcoholism says drinks 6-7 beers daily comes because of fall and also found to hyponatremia. Mechanical fall Ambulatory dysfunction Patient presents to the hospital with multiple falls CT head without contrastno acute finding Cervical spine CTno acute finding During the hospitalization, PT OT eval was done. Patient was recommended to go to rehab. Patient opted to go to home with home PT OT. Hyponatremia Sodium 127 on presentation Improved with IV hydration History of chronic hyponatremia; sodium of 134 today. Encourage protein intake at discharge. Alcohol use disorder Alcohol withdrawal History of alcohol use disorder Continue alcohol withdrawal protocol with gabapentin and IV Ativan Continue thiamine and folic acid No signs of withdrawal at discharge. Asked patient to follow-up with primary care, might need referral for addiction medicine. Can consider naltrexone as outpatient. Please note the above document was generated using voice recognition software. It may contain grammatical, syntax or spelling errors. Any formal questions or concerns about the content, text or information contained within the body of this dictation should be directly addressed to the provider for clarification Total Time Total Time Spent Total Time Spent (In Minutes): 45 Total Time Includes: Examination of the Patient, Discharge Planning, Medication Reconciliation, Communication With Other Providers and Other Discharge Plan Discharge Items Patient Disposition: Home - Self-Care Reason For Visit: FALL, HYPONATREMIA, ALCOHOLISM Discharge Diagnosis: Mechanical fall Hyponatremia Alcohol withdrawal Activity: Resume your previous activity Non-emergency contact: Primary Care Provider Call non-emergency contact if: you have any medication questions and your symptoms worsen Follow-up/Referrals: Demetra Bowman, [Primary Care Provider] - (Date & Time 01/14/2023 4:20 PM Provider Tyson Escobar MD [facility] ) Diet: Regular Addtl Attending Provider Instructions: You were admitted to the hospital due to mechanical fall. The CAT scan of the head and the cervical spine did not show any fracture. The likely cause for the multiple falls, ambulatory dysfunction and weight loss is nutrition and alcohol use disorder. Please abstain from alcohol. You can use [id number] Ensure/boost that will help with the weight gain. [facility] will be setting of home health for home physical therapy and Occupational Therapy. An appointment will be set up with your primary care doctor for follow-up. You are prescribed nicotine patch to be used daily. You can also discuss with your primary care doctor regarding Chantix that will help with nicotine craving. For the alcohol use disorder, you do not need any medication at the moment. You can discuss with your primary care doctor about starting naltrexone which can help with alcohol craving. Pending Studies at Discharge: No Stand-Alone Forms: My [facility] NOTIK, Smoking Cessation Medications and DC Order Prescriptions: New nicotine [Nicoderm CQ] 21 mg/24 hr Patch 24 Hour 21 mg transdermal QAM Qty: 28 0RF Continued atorvastatin 80 mg tablet 80 mg PO HS levothyroxine 50 mcg tablet 50 mcg PO QAM allopurinol 300 mg tablet 300 mg PO HS venlafaxine 150 mg capsule,extended release 24hr 150 mg PO QAM pantoprazole 20 mg tablet,delayed release (DR/EC) 20 mg PO DAILY PRN (Reason: Heartburn) amlodipine 5 mg tablet 5 mg PO DAILY losartan 100 mg tablet 100 mg PO DAILY Women's Daily Formula 18 mg iron-400 mcg-500 mg Tablet 1 tab PO DAILY Discharge Orders: Discharge Order (Routine); Ordered 01/12/23 Ordered By: Ravinder Pope Admission Data Admit Date/Time: 01/10/23 00:13 Attending Provider: Ravinder Pope Admit Provider: Jeremiah Monson Primary Care Provider: Demetra Bowman [facility] Other Interventions: Discharge Summary Assessment (RN) Last Done: 01/12/23 14:02
[2023-01-13] MEDS ORDERED: GABAPENTIN 600 MG TAB PO SCH (14:00)
--- OUTSIDE RECORDS SUMMARY | 2023-01-13 19:33 | External Medical Summary | Summary of Care ---
Author Name Unknown Organization [facility] Address [address] [place] [place] [address] Phone [phone] Care Team Providers Care Math And Sciences Department Chair Name Role Phone Demetra Bowman DO Primary Care Provider + [phone] Reason for Visit * Reason Comments NEW PATIENT Bilateral hip * Evaluate & Treat - Unlimited Visits (Within 10 days (routine)) - Authorized Specialty Diagnoses / Procedures Referred By Contoliva t Referred To Contact Sports Medicine / Orthopedics Diagnoses Osteoarthritis, generalized Tyson Escobar MD [address] [place] [address] Referral ID Status Reason Start Date Expiration Date Visits Requested Visits Authorized [id number] Authorized Specialty Services Required 11/19/[phone] Encounter Details Date Type Department Care Team Description 12/02/2022 Office Visit Orthopaedics [facility] [address] [place] [address] Jean Carlos Lanza DO [address] [place] [address] Bilateral hip pain* Allergies Active Allergy Reactions Severity Noted Date Comments Pollen 11/03/2017 Nickel Rash 11/03/2017 documented as of this encounter (statuses as of 12/02/2022) Medications Medication Sig Dispensed Refills Start Date End Date Status zoster vac recomb adjuvanted (SHINGRIX) 50 MCG/0.5ML injection Inject 0.5 mL into a large muscle now and repeat dose in 60 to 180 days 1 Each 1 11/11/2019 Active Acetaminophen 325 MG Oral Tablet (Tylenol) Take 2 Tablets by mouth every 6 hours as needed. 0 08/01/2021 Active Fluocinolone Acetonide 0.025 % External OintmentIndications: Cheilitis Apply topically to affected area 2 times a day . Apply to affected skin. Do not use more than 2 weeks. 30 g 0 11/20/2021 Active Losartan Potassium 100 MG Oral Tablet (Cozaar)Indications: HTN, goal below 140/90 TAKE 1 TABLET BY MOUTH EVERY DAY IN THE MORNING 90 Tablet 3 01/15/2022 Active Allopurinol 300 MG Oral Tablet (Zyloprim)Indication s:Gouty arthropathy TAKE 1 TABLET BY MOUTH EVERY DAY 90 Tablet 3 01/15/2022 Active Atorvastatin Calcium 80 MG Oral Tablet (Lipitor)Indications :Dyslipidemia, goal LDL below 100 TAKE 1 TABLET BY MOUTH EVERY DAY 90 Tablet 3 01/15/2022 Active Levothyroxine Sodium 50 MCG Oral Tablet (Levoxyl)Indications :Hypothyroidism TAKE ONE TABLET BY MOUTH ONCE DAILY (AT LEAST 30 MINUTES PRIOR TO BREAKFAST OR OTHER MEDS) 90 Tablet 3 01/27/2022 Active Pantoprazole Sodium 20 MG Oral Tablet Delayed Release (Protonix)Indication s:Acute alcoholic gastritis without hemorrhage TAKE 1 TABLET BY MOUTH EVERY MORNING 30 MINUTES PRIOR TO BREAKFAST. DO NOT CUT, CRUSH, OR CHEW 90 Tablet 1 07/14/2022 Active amLODIPine Besylate 5 MG Oral Tablet (Norvasc) TAKE 1 TABLET BY MOUTH EVERY DAY IN THE MORNING 90 Tablet 3 08/26/2022 Active Venlafaxine HCl ER 150 MG Oral Capsule Extended Release 24 Hour (Effexor XR)Indications:Moder ate episode of recurrent major depressive disorder (HCC) TAKE BY MOUTH 1 CAPSULE IN THE MORNING. DO NOT CUT, CRUSH, OR CHEW.. 90 Capsule 1 09/29/2022 Active Furosemide 20 MG Oral Tablet (Lasix)Indications:B ilateral leg edema Take 1 Tablet by mouth in the morning. 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 05/20/2018 Moderate episode of recurrent major depr essive disorder 12/11/2017 Primary osteoarthritis of both hands Gouty arthropathy 03/30/2015 Hypothyroidism 03/30/2015 HTN, goal below 140/90 09/29/2013 History of bilateral carotid endarterect jabier 10/28/2012 Overview: left Varicose vein of leg Dyslipidemia, goal LDL below 100 documented as of this encounter (statuses as of 12/02/2022) Resolved Problems Problem Noted Date Resolved Date Fracture of proximal end of right humerus with routine healing 06/04/2020 05/27/2022 Overview: Noted in 2020 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 12/02/2021 Overview: HISTORICAL Overweight (BMI 25.0-29.9) 04/17/201511/26 Overview: bmi= 29.12 04/17/15 Fracture of humerus, proximal, left, closed 10/201410/28/2017 Hot flashes 04/06/2014 10/28/2017 DJD (degenerative joint disease) 04/06/2014 04/17/2015 Abnormal mammogram 11/03/2013 10/28/2017 Overweight (BMI 25.0-29.9) 10/03/201311/26 Routine medical exam 10/03/2013 04/17/2015 Overweight (BMI 25.0-29.9) 10/03/201311/26 Overview: BMI= 29.61 10/03/13 Alcohol dependence, continuous 10/03/2013 0 04/17/2015 Knee pain 07/26/2013 05/27/2022 Overview: Noted in 2013 Right knee DJD 07/26/2013 04/17/2015 Edema 07/26/2013 04/17/2015 Gout 07/26/2013 03/30/2015 Postoperative anemia 10/28/2012 04/17/2015 Localized, primary osteoarthritis of hand 04/17/2015 Arterial disease 04/06/2014 Overview: carotid stenosis S/P carotid endarterectomy 10/28 HTN, goal below 130/80 4 Major depressive disorder 2015 Overview: ICD-10 update of inactive term documented as of this encounter (statuses as of 12/02/2022) Immunizations Name Administration Dates Next Due COVID-19 mRNA, LNP-s, No Pre serve, 2-Dose Series ([employer]) 03/05/2021,06/28/2020,06/07/2020 Pneumococcal Conjugate Vacc, 13 Valent (Prevnar) 11/26/2016 Pneumococcal Polysaccharide PPV23 (Pneumovax) 09/21/2019,12/13/2018 SEASONAL INFLUENZA, PF, 6 M & Above, IM , (FLULAVAL or FLUZONE) 11/12/2019 Seasonal Influenza, Quadriva lent Hd (Fluzone Hd) 12/05/2021,01/09/2021 Seasonal Influenza, Trivalen t, High Dose, No Preserve, IM 01/25/2019 TDAP (age 10 and older)(Boostrix) 06/21/2012 Varicella Zoster Vaccine (Adult) 01/20/2013 documented as of this encounter Social History Tobacco Use Types Packs/Day Years Used Date Smoking Tobacco: Every Day Cigarettes 2 20 Last attempted to quit: 03/02/2006 Passive Smoke Exposure: Current Smokeless Tobacco: Never Comments:approx 1.25 PPD Alcohol Use Standard Drinks/Week Comments Yes 0 (1 standard drink = 0.6 oz pure alcohol) every day 5-6 beers. cut down 2-3 beers a day 12/22/17. Food Insecurity Answer Date Recorded Within the past 12 months, y ou worried that your food would run out before you got money to buy more. Often true 12/05/2021 Within the past 12 months, t he food you bought just didn't last and you didn't have money to get more. Often true 12/05/2021 Sex Assigned at Date Recorded Female 05/20/2018 12:36 PM EDT Job Start Date Occupation Industry Not on file Not on file Not on file documented as of this encounter Progress Notes * Jean Carlos Lanza, DO - 12/02/2022 3:26 PM EDT CHIEF COMPLAINT: Chief Complaint Patient presents with NEW PATIENT Bilateral hip HISTORY OF PRESENT ILLNESS: Mary Ellen Teresa is a 72 year old female who presents to clinic today for right hip pain. Patient reportsthat his pain has been present for years. Denies known traumatic event to her right lower extremity. Patient has several musculoskeletal concerns including bilateral shoulder generalized upper and ext remity weakness, and bilateral hip and knee pain. Regarding her right hip she states that it prevents her sleeping due to its pain however notes that a heating pad helps relieves her symptoms. She ambulates today in clinic with a walker and says that she uses this has she has had had several falls over past 6 months. She states that she frequently loses her balance in that the walker helps maintain her balance. She denies any numbness or tingling to her right lower extremity. Reports that her right hip pain primarily radiates into her groin area. Review of Systems: Constitutional ROS: No fevers, sweats, or chills Cardiovascular ROS: No chest pain Gastrointestinal ROS: No abdominal pain Musculoskeletal/Extremities ROS: As per HPI Neurologic ROS: As per HPI Review of patient's allergies indicates: Allergen Reactions Environmental [Pollen] Nickel Rash Current Outpatient Medications Medication Sig Dispense Refill zoster vac recomb adjuvanted (SHINGRIX) 50 MCG/0.5ML injection Inject 0.5 mL into a large muscle now and repeat dose in 60 to 180 days 1 Each 1 Acetaminophen 325 MG Oral Tablet (Tylenol) Take 2 Tablets by mouth every 6 hours as needed. Fluocinolone Acetonide 0.025 % External Ointment Apply topically to affected area 2 times a day . Apply to affected skin. Do not use more than 2 weeks. 30 g 0 Losartan Potassium 100 MG Oral Tablet (Cozaar) TAKE 1 TABLET BY MOUTH EVERY DAY IN THE MORNING 90 Tablet 3 Allopurinol 300 MG Oral Tablet (Zyloprim) TAKE 1 TABLET BY MOUTH EVERY DAY 90 Tablet 3 Atorvastatin Calcium 80 MG Oral Tablet (Lipitor) TAKE 1 TABLET BY MOUTH EVERY DAY 90 Tablet 3 Levothyroxine Sodium 50 MCG Oral Tablet (Levoxyl) TAKE ONE TABLET BY MOUTH ONCE DAILY (AT LEAST 30 MINUTES PRIOR TO BREAKFAST OR OTHER MEDS) 90 Tablet 3 Pantoprazole Sodium 20 MG Oral Tablet Delayed Release (Protonix) TAKE 1 TABLET BY MOUTH EVERY MORNING 30 MINUTES PRIOR TO BREAKFAST. DO NOT CUT, CRUSH, OR CHEW 90 Tablet 1 amLODIPine Besylate 5 MG Oral Tablet (Norvasc) TAKE 1 TABLET BY MOUTH EVERY DAY IN THE MORNING 90 Tablet 3 Venlafaxine HCl ER 150 MG Oral Capsule Extended Release 24 Hour (Effexor XR) TAKE BY MOUTH 1 CAPSULE IN THE MORNING. DO NOT CUT, CRUSH, OR CHEW.. 90 Capsule 1 Furosemide 20 MG Oral Tablet (Lasix) Take 1 Tablet by mouth in the morning. 60 Tablet 2 No current facility-administered medications for this visit. 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 ([facility]) D80.3 Back pain M54.9 Carpal tunnel syndrome G56.00 Cigarette smoker F17.210 Alcohol consumption of more than four drinks per day Z78.9 Food insecurity Z59.41 Gastro-esophageal reflux disease without esophagitis K21.9 Age-related osteoporosis without current pathological fracture M81.0 Past Medical History: Diagnosis Date Arterial disease (HCC) carotid stenosis Colon polyps last C scope 10/2011- repeat every 5 years Depressive disorder, not elsewhere classified Dyslipidemia, goal LDL below 100 Fracture of proximal end of right humerus with routine healing 06/04/2020 Noted in 2020 Historical Gout knee. HTN, goal below 140/90 Knee pain 07/26/2013 Noted in 2013 Localized, primary osteoarthritis of hand S/P carotid endarterectomy Right. 2005 Stroke (HCC) 02/13/2016 HISTORICAL Varicose vein of leg Past Surgical History: Procedure Laterality Date CAROTID ARTERY EDU. 2012 left CAROTID ARTERY SURGERY EDU 2006 right COLONOSCOPY 10/2011 colon polyps. COLONOSCOPY, DIAGNOSTIC (RECTUM) 11/12/2017 normal, repeat 5 yrs/COLONOSCOPY FLEXIBLE PROXIMAL DIAGNOSTIC performed by Ashley Quinonez DO at [facility] Social History Tobacco Use Smoking status: Every Day Packs/day: 2.00 Years: 20.00 Pack years: 40.00 Types: Cigarettes Last attempt to quit: 03/02/2006 Years since quittin.7 Passive exposure: Current Smokeless tobacco: Never Tobacco comments: approx 1.25 PPD Substance Use Topics Alcohol use: Yes Comment: every day 5-6 beers. cut down 2-3 beers a day 12/22/17. Drug use: No Family history: Noncontributory OBJECTIVE: Vital Signs: There were no vitals taken for this visit. Physical Exam: There were no vitals filed for this visit. There is no height or weight on file to calculate BMI. General : alert, no distress, appears chronically ill Mood/Affect : pleasant Cardiovascular : warm and well-perfused Pulm : unlabored breathing, comfortable on room air RIGHT HIP INSPECTION Normal gait, neutral alignment Skin intact, no visible scars or wounds RANGE OF MOTION Pain with flexion and internal rotation, no pain with short arc hip flexion or internal and external rotation Restrictions with flexion internal rotation PALPATION (+) TTP: Throughout exam with most prominent tenderness being along greater troch and IT band No other areas of of bony or soft tissue tenderness STRENGTH 4+/5 hip flexors. 5/5 hip extensors. 5/5 abductors. 5/5 hip adductors. 4+/5 quads. 5/5 hamstrings. 5/5 ankle DF. 5/5 EHL. 5/5 PF SPECIAL TESTS Negative KATIE. positive FADIR. negative log roll. NEUROVASCULAR Sensation: SILT in saphenous, sural, tibial, superficial and deep peroneal distributions Motor: motor function intact distally to tibial, superficial and deep peroneal nerves with no appreciable deficits Extremities warm and well-perfused Diagnostic Testing: X-rays performed today AP pelvis bilateral hips demonstrate per my interpretation no acute osseous abnormality with joint space narrowing noted right hip ASSESSMENT: Bilateral hip pain right greater than left PLAN: Patient seen and examined in clinic today. I personally reviewed her x-rays directly with the patient today. Various treatment options were discussed. Patient states that while her oral NSAID helped her pain her primary care provider discouraged her from using it. I reinforced this. I discussed with patient that I do not formed surgeries on hip in the outpatient setting but do not think that a discussion for total hip arthroplasty is warranted at the time given her various pains. I offered the patient formal physical therapy for generalized strengthening and to promote safe ambulation. Patient declined this time. I also discussed that an intra-articular ultrasound-guided injection into her right hip may offer her some relief. She states that she is not interested at this time however may consider this in the future. This point she can follow up with me as needed. Should patient decide to undergo treatment, I would prefer to primary care sports for ultrasound guided intra-articular hipinjection consideration. Patient expressed understanding and was in agreement with today's treatment plan. Jean Carlos Lanza DO Orthopaedics [address] [address] Orthopedic Sports Medicine Surgery 12/02/2022 3:26 PM This chart was completed in part utilizing [employer] Speech Voice Recognition Software. Grammatical errors, random word insertions, pronoun errors, and incomplete sentences are an occasional consequence of this system due to software limitations, ambient noise, and hardware issues. Any formal questions or concerns about the content, text, or information contained within the body of this dictation should be directly addressed to the provider for clarification. documented in this encounter Nursing Notes * SHAZIA Earl - 12/02/2022 2:43 PM EDT Patient presents today for new patient eval for bilateral hip pain for several years. documented in this encounter Plan of Treatment Upcoming Encounters Date Type Specialty Care Team Description 01/28/2023 Office Visit Family Medicine Demetra Bowman DO [address] [place] [address] [phone] Pending Results Name Type Priority Associated Diagnoses Date /Time XR HIP BILAT MIN 5 VIEWS INCLUDING AP OF PELVIS Medical Imaging Routine Bilateral hip pain 12/02/2022 2:58 PM EDT Scheduled Procedures Name Priority Associated Diagnoses Date/Ti me COLONOSCOPY FLEXIBLE PROXIMAL DIAGNOSTIC Recall History of colon polyps Health Maintenance Due Date Last Done Comments LUNG CANCER SCREENING - USE SMARTSET 24154 05/07/2001 Zoster Vaccines (2 of 3) 03/17/2013 01/20/2013 DXA Scan 08/04/2020 08/04/2018 Mammogram 09/28/2020 09/29/2019, 05/31, 07/03/2015, Additional history exists Depression Screening 05/31/2022 05/31/2021 DTaP,Tdap,and Td Vaccines (2 - Td or Tdap) 06/21/2022 06/21/2012 *BISPHONATE OR OTHER ACCEPTABLE MEDICATION NEEDED FOR OSTEOPOROSIS (REFER TO SMARTSET #1146) 09/20/2022 COVID-19 Vaccine ( season) 2022 03/05/2021, 06/28/2020, 06/07/2020 Influenza Vaccine (FLU shot) (#1) 2022 12/05/2021, 01/09/2021, 11/12/2019, Additional history exists COLONOSCOPY-EVERY 5 YRS AGES 18-100 11/12/2022 11/12/2017, 11/12/2017 TSH 11/19/2022 11/19/2021, 09/30, 09/21/2019, Additional history exists GFR 07/12/2023 07/11/2022, 07/2021, 05/31/2021, Additional history exists Albumin/Creatinine Ratio 05/31/2024 05/31/2021 Lipid Panel 11/19/2026 11/19/2021, 09/30, 09/14/2019, Additional history exists VITAMIN D LEVEL ONCE IN A LIFETIME-USE SMARTSET# [id number] Completed 01/05/2018, 11/22/2012 Pneumococcal Vaccine: 65+ Years Completed 09/21/2019, 12/13/2018, 11/26/2016 GARDASIL-HPV IMMUNIZATION SERIES Aged Out No longer eligible based on patient's age to complete this topic Hepatitis B Aged Out No longer eligi ble based on patient's age to complete this topic MENINGOCOCCAL (MENACTRA/MENVEO) Aged Out No longer eligible based on patient's age to complete this topic documented as of this encounter Medical Devices Not on filedocumented as of this encounter Visit Diagnoses Diagnosis Bilateral hip pain- Primary Pain in joint, pelvic region and thigh documented in this encounter Care Teams Math And Sciences Department Chair Relationship Specialty Start Date End Date Demetra Bowman, DO [address] [place] [address] PCP - General Family Medicine 05/20/18 documented as of this encounter
--- OUTSIDE RECORDS SUMMARY | 2023-01-13 19:33 | External Medical Summary | Summary of Care ---
Author Name Unknown Organization [facility] Address [address] [facility] [place] [address] Phone [phone] Care Team Providers Care Engineering Designer Name Role Phone Demetra Bowman DO Primary Care Provider + [phone] Reason for Visit * Reason Onset Date Comments Advice 11/14/2022 Encounter Details Date Type Department Care Team Description 11/14/[address] [facility] [address] [place] [address] Demetra Bowman DO [address] [place] [address] Advice Allergies Active Allergy Reactions Severity Noted Date Comments Pollen 11/03/2017 Nickel Rash 11/03/2017 documented as of this encounter (statuses as of 11/17/2022) Medications Medication Sig Dispensed Refills Start Date [...] as of this encounter (statuses as of 11/17/2022) Active Problems Problem Noted Date Age-related osteoporosis without current pathological fracture 09/17/2022 Gastro-esophageal reflux disease without esophagitis 12/05/2021 Food insecurity 06/10/2021 Overview: Per [facility] Protocol Alcohol consumption of more than [...] as of this encounter (statuses as of 11/17/2022) Resolved Problems Problem Noted Date Resolved Date Fracture of proximal end of right humerus with routine healing 06/04/2020 05/27/2022 Overview: Noted in 2020 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 12/02/2021 Overview: HISTORICAL Overweight (BMI 25.0-29.9) 04/17/201511/26 Overview: bmi= 29.12 04/17/15 Fracture of humerus, proximal, left, closed 07/0 10/201410/28/2017 Hot flashes 04/06/2014 10/28/2017 DJD (degenerative [...] as of this encounter (statuses as of 11/17/2022) Immunizations Name Administration Dates Next Due COVID-19 mRNA, LNP-s, No Pre serve, 2-Dose Series (Pfizer) 03/05/2021,06/28/2020,06/07/2020 Pneumococcal Conjugate Vacc, 13 Valent (Prevnar) 11/26/2016 Pneumococcal Polysaccharide PPV23 (Pneumovax) 09/21/2019,12/13/2018 Seasonal Influenza, PF, 6 mo ns & Above, IM , (Flulaval) 11/12/2019 Seasonal Influenza, Quadriva lent Hd (Fluzone [...] on file documented as of this encounter Miscellaneous Notes * Telephone Encounter - AJXON Muller - 11/17/2022 8:47 AM EDT LMOM to schedule. 11/17/2022 * Telephone Encounter - Milli Elizabeth LPN - 11/14/2022 4:17 PM EDT Please offer weekend clinic or urgent care * Telephone Encounter - JAXON Singh - 11/14/2022 3:57 PM EDT No Appointments Available Patient declined appointments?: No What Visit Type is needed? Acute If Acute Visit Type is needed, were surrounding clinics offered to patient (Yes/No)? Yes Was patient offered appointments with other available providers (Yes/No)? Yes See Call Details? (Yes or No): No complaint of weakness in all four extremities onset of 1 week. documented in this encounter Plan of Treatment Upcoming Encounters Date Type Specialty Care Team Description 01/28/2023 Office Visit Family Medicine Demetra Bowman, [address] [place] [address] Scheduled Procedures Name Priority Associated Diagnoses Date/Ti me COLONOSCOPY FLEXIBLE PROXIMAL DIAGNOSTIC Recall History of colon polyps Health Maintenance Due Date Last Done Comments LUNG CANCER SCREENING - USE SMARTSET [id number] 05/07/2001 Zoster Vaccines (2 of 3) 03/17/2013 01/20/2013 DXA Scan 08/04/2020 08/04/2018 Mammogram 09/28/2020 09/29/2019, 05/31, 07/03/2015, Additional history exists COVID-19 Vaccine (4 - Pfizer series) 04/30/2021 03/05/2021, 06/28/2020, 06/07/2020 Depression Screening 05/31/2022 05/31/2021 DTaP,Tdap,and Td Vaccines (2 - Td or Tdap) 06/21/2022 06/21/2012 *BISPHONATE OR OTHER ACCEPTABLE MEDICATION NEEDED FOR OSTEOPOROSIS (REFER TO SMARTSET #1146) 09/20/2022 Influenza Vaccine (FLU shot) (#1) 2022 12/05/2021, 01/09/2021, 11/12/2019, Additional history exists COLONOSCOPY-EVERY 5 YRS AGES 18-100 11/12/2022 11/12/2017, 11/12/2017 TSH 11/19/2022 11/19/2021, 09/30, 09/21/2019, Additional history exists GFR 07/12/2023 07/11/2022, 10/0 07/2021, 05/31/2021, Additional history exists Albumin/Creatinine Ratio 05/31/2024 05/31/2021 Lipid Panel 11/19/2026 11/19/2021, 09/30, 09/14/2019, Additional history exists VITAMIN D LEVEL ONCE IN A LIFETIME-USE SMARTSET# [id number] Completed 01/05/2018, 11/22/2012 Pneumococcal Vaccine: 65+ Years [...] Not on filedocumented as of this encounter Care Teams Engineering Designer Relationship Specialty Start Date End Date Demetra Bowman, [address] [place] [address] PCP - General Family Medicine 05/20/18 documented as of this encounter
--- OUTSIDE RECORDS SUMMARY | 2023-01-13 19:33 | External Medical Summary | Summary of Care ---
Author Name Unknown Organization [facility] Address [address] [facility] [place] [address] Phone [phone] Care Team Providers Care Ballistics Expert Forensic Name Role Phone Demetra Bowman DO Primary Care Provider [phone] Reason for Visit * Reason Onset Date Comments Advice 11/14/2022 FYI 11/14/2022 Encounter Details Date Type Department Care Team Description 11/14/2022 Telephone [facility] [address] [place] [address] Demetra Bowman DO [address] [place] [address] Advice; Allergies Active Allergy Reactions Severity Noted Date Comments Pollen 11/03/2017 Nickel Rash 11/03/2017 documented as of this encounter (statuses as of 11/18/2022) Medications Medication Sig Dispensed Refills Start Date [...] as of this encounter (statuses as of 11/18/2022) Active Problems Problem Noted Date Age-related osteoporosis without current pathological fracture 09/17/2022 Gastro-esophageal reflux disease without esophagitis 12/05/2021 Food insecurity 06/10/2021 Overview: Per [facility] Protocol Alcohol consumption of more [...] as of this encounter (statuses as of 11/18/2022) Resolved Problems Problem Noted Date Resolved Date [...] as of this encounter (statuses as of 11/18/2022) Immunizations Name Administration Dates Next Due COVID-19 [...] encounter Miscellaneous Notes * Telephone Encounter - JAXON Rosado - 11/18/2022 3:03 PM EDT Patient has been notified of the message. Patient has been scheduled. * Telephone Encounter - JAXON Muller - 11/17/2022 8:47 AM EDT LMOM [...] Encounters Date Type Specialty Care Team Description 11/19/2022 Office Visit Family Medicine Tyson Escobar MD [address] [place] [facility] [place] [address] 01/28/2023 Office Visit Family Demetra Jaeger DO [address] [facility] [place] [address] Scheduled Procedures Name Priority Associated Diagnoses Date/Ti me COLONOSCOPY FLEXIBLE PROXIMAL DIAGNOSTIC Recall History of colon polyps Health Maintenance Due Date Last Done Comments LUNG CANCER SCREENING - USE SMARTSET 36404 05/07/2001 Zoster Vaccines (2 of 3) 03/17/2013 [...] D LEVEL ONCE IN A LIFETIME-USE SMARTSET# [id number] Completed 01/05/2018, 11/22/2012 Pneumococcal Vaccine: 65+ Years [...] filedocumented as of this encounter Care Teams Ballistics Expert Forensic Relationship Specialty Start Date End Date Demetra Bowman, DO [address] [place] [address] PCP - General Family Medicine 05/20/18 documented as of this encounter
--- OUTSIDE RECORDS SUMMARY | 2023-01-13 19:33 | External Medical Summary | Summary of Care ---
Author Name Unknown Organization [facility] Address [address] [facility] [address] Phone [phone] Care Team Providers Care Manufacturing Millwright Name Role Phone Demetra Bowman Primary Care Provider + [phone] Reason for Referral * Evaluate & Treat - Unlimited Visits (Within 10 days (routine)) - Authorized Specialty Diagnoses / Procedures Referred By Contac t Referred To Contact Sports Medicine / Orthopedics Diagnoses Osteoarthritis, generalized Tyson Escobar MD [address] [place] [address] Referral ID Status Reason Start Date Expiration Date Visits Requested Visits Authorized [id number] Authorized Specialty Services Required 11/19/[phone] Question Answer Referral Priority Within 10 days (routine) What body part is the patient being seen for? Thigh/Knee What condition is the patient being seen for? Arthritis including related infection Comments Bilateral hip and knee pain - felt to be osteoarthritis. Consider joint injections Reason for Visit * Reason Comments Acute Pt states that she h as been having a lot of joint pain, ongoing for years. Pt states that she fell off the couch last night Encounter Details Date Type Department Care Team Description 11/19/2022 Office Visit [facility] [address] [place] [address] Tyson Escobar MD [address] [place] [address] Osteoarthritis, generalized* Allergies Active Allergy Reactions Severity Noted Date Comments Pollen 11/03/2017 Nickel Rash 11/03/2017 documented as of this encounter (statuses as of 11/19/2022) Medications Medication Sig Dispensed Refills Start Date [...] as of this encounter (statuses as of 11/19/2022) Active Problems Problem Noted Date Age-related osteoporosis [...] as of this encounter (statuses as of 11/19/2022) Resolved Problems Problem Noted Date Resolved Date Fracture of proximal end of right humerus with routine healing 06/04/2020 05/27/2022 Overview: Noted in 2020 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 12/02/2021 Overview: HISTORICAL Overweight (BMI 25.0-29.9) 04/17/201511/26 Overview: bmi= 29.12 04/17/15 Fracture of humerus, proximal, left, closed 07/10/201410/28/2017 Hot flashes 04/06/2014 10/28/2017 DJD (degenerative joint [...] as of this encounter (statuses as of 11/19/2022) Immunizations Name Administration Dates Next Due COVID-19 [...] Passive Smoke Exposure: Current Smokeless Tobacco: Never Tobacco Cessation:Ready to Q uit: Not Asked; Counseling Given: Not Answered Comments:approx 1.25 PPD Alcohol Use Standard Drinks/Week [...] on file documented as of this encounter Last Filed Vital Signs Vital Sign Reading Time Taken Comments Blood Pressure 132/60 11/19/2022 4:04 PM EDT Pulse 82 11/19/2022 4:04 PM EDT Temperature 35.7 C (96.2 F) 11/19/2022 4:04 PM ED T Respiratory Rate 18 11/19/2022 4:04 PM EDT Oxygen Saturation 96% 11/19/2022 4:04 PM EDT Inhaled Oxygen Concentration - - Weight 62.1 kg (136 lb 12.8 oz) 11/19/2022 4:04 PM EDT Height 165.1 cm (5' 5") 11/19/2022 4:04 PM EDT Body Mass Index 22.76 11/19/2022 4:04 PM EDT documented in this encounter Progress Notes * Tyson Escobar MD - 11/19/2022 4:30 PM EDT ABIGAIL Michelleubjective: Mary Ellen Teresa is a 72 year old female. Chief Complaint Patient presents with Acute Pt states that she has been having a lot of joint pain, ongoing for years. Pt states that she fell off the couch last night HPI: 72-year-old seen today accompanied by her . She normally sees Dr. Bowman. Her chief complaint today is of diffuse achiness. She believes that this is in her joints in his most notable in her knees and hips. She does not have significant muscle soreness or achiness in her shoulder or pelvic girdle. She is been using a leave-2 tablets twice a day intermittently. Has not found Tylenol to be helpful but she is never used it on a regular basis. Has never had joint injection. Her also points out that patient Dennis is having some difficulties with memory. Maybe some depression. She is on Effexor. 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 Review of patient's allergies indicates: Allergen Reactions Environmental [Pollen] Nickel Rash Objective: BP 132/60 (BP Site: Left Arm, BP Position: Sitting, BP Cuff Size: Regular) | Pulse 82 | Temp 35.7 C (96.2 F) (Temporal Artery) | Resp 18 | Ht 1.651 m (5' 5") | Wt 62.1 kg (136 lb 12.8 oz) | SpO2 96% | BMI 22.76 kg/m | BSA 1.69 m Physical Exam: CONST: alert, pleasant, no acute distress HEAD: normocephalic, atraumatic Eyes - PERRLA, EOM'I OROPHARYNX: clear, no swelling or erythema, moist CV: regular rate and rhythm, no murmur CHEST: clear to auscultation bilaterally, no rales or wheezing ABD: soft, non tender, non distended, no masses or hepatosplenomegaly EXT: Hands-multiple nodules at D IP joints. No effusions. No greater trochanter tenderness of significance. I also do not appreciate effusion about her knees. NEURO: AAOx3, no gross focal deficits, cerebellar signs normal, affect appropriate MENTAL STATUS: no evidence of thought disorder, no delusional thought, no evidence of paranoia, thought is non-tangential. SKIN: no rash or significant lesions ASSESSMENT/PLAN: Osteoarthritis, generalized (Primary) primarily seems to be affecting hips and knees. - SPORTS MEDICINE REFERRAL OP-consider steroid injections. Recommended Tylenol 500 mg, 2 tablets 3 times a day on a regular basis. I made it clear that she should take more than 3 g a day. I hig hly recommended that she not use ibuprofen or Alleve except on a very rare basis Memory difficulties-this may be due to an underlying developing dementia but she also could have pseudo dementia. She has follow-up with Dr. Bowman in December. She should keep that appointment in make a point to discuss the memory difficulties. Tyson Escobar MD documented in this encounter Nursing Notes * SID Hines - 11/19/2022 4:04 PM EDT Mary Ellen Teresa is a 72 year old female who presents today for Chief Complaint Patient presents with Acute Pt states that she has been having a lot of joint pain, ongoing for years. Pt states that she fell off the couch last night documented in this encounter Plan of Treatment Upcoming Encounters Date Type Specialty Care Team Description 12/02/2022 Office Visit Orthopedics Jean Carlos Lanza, DO [address] [place] [address] 01/28/2023 Office Visit Family Medicine Demetra Bowman, DO [address] [facility] [place] [address] Scheduled Procedures Name Priority Associated Diagnoses Date/Ti me COLONOSCOPY FLEXIBLE PROXIMAL DIAGNOSTIC Recall History of colon polyps Scheduled Referrals Name Type Priority Associated Diagnoses Orde r Schedule SPORTS MEDICINE REFERRAL OP Referral Within 10 days (routine) Osteoarthritis, generalized Ordered: 11/19/2022 Health Maintenance Due Date Last Done Comments LUNG CANCER SCREENING - USE SMARTSET 13852 05/07/2001 Zoster Vaccines (2 of 3) 03/17/2013 [...] D LEVEL ONCE IN A LIFETIME-USE SMARTSET# [id number] Completed 01/05/2018, 11/22/2012 Pneumococcal Vaccine: 65+ Years [...] as of this encounter Visit Diagnoses Diagnosis Osteoarthritis, generalized- Primary Generalized osteoarthrosis, unspecified site documented in this encounter Care Teams Manufacturing Millwright Relationship Specialty Start Date End Date Demetra Bowman, [address] [place] [address] PCP - General Family Medicine 05/20/18 documented as of this encounter
--- OUTSIDE RECORDS SUMMARY | 2023-01-13 19:34 | External Medical Summary | Summary of Care ---
Author Name Unknown Organization [facility] Address [address] [place] [address] Phone [phone] Care Team Providers Care Childcare Teacher Name Role Phone Demetra Bowman DO Primary Care Provider [phone] Reason for Visit * Reason Onset Date Comments case management 11/06/2022 Encounter Details Date Type Department Care Team Description 11/06/2022 Business Intelligence Developer Telephone Care Coordination [address] [place], [place] [id number] Rebecca Daniel, MS [address] [place], [place] [id number] case management Allergies Active Allergy Reactions Severity Noted Date Comments Pollen 11/03/2017 Nickel Rash 11/03/2017 documented as of this encounter (statuses as of 11/06/2022) Medications Medication Sig Dispensed Refills Start Date [...] as of this encounter (statuses as of 11/06/2022) Active Problems Problem Noted Date Age-related osteoporosis without current pathological fracture 09/17/2022 Gastro-esophageal reflux disease without esophagitis 12/05/2021 Food insecurity 06/10/2021 Overview: Per [facility] Protocol Alcohol consumption of more [...] as of this encounter (statuses as of 11/06/2022) Resolved Problems Problem Noted Date Resolved Date [...] as of this encounter (statuses as of 11/06/2022) Immunizations Name Administration Dates Next Due COVID-19 [...] encounter Miscellaneous Notes * Telephone Encounter - Rebecca Daniel MS - 11/06/2022 11:05 AM EDT Follow-up Routine Attempted Phone Call Second Attempt Call Outcome Left Voicemail/Message Plan To attempt another outreach documented in this encounter Plan of Treatment Upcoming Encounters Date Type Specialty Care Team Description 11/14/2022 Cardiac Studies Cardiac Studies 01/28/2023 Office Visit Family Medicine Demetra Bowman, [address] [place] [address] Scheduled Procedures Name Priority Associated Diagnoses Date/Ti me COLONOSCOPY FLEXIBLE PROXIMAL DIAGNOSTIC Recall History of colon polyps Health Maintenance Due Date Last Done Comments LUNG CANCER SCREENING - USE SMARTSET [id number] 05/07/2001 Zoster Vaccines (2 of 3) 03/17/2013 01/20/2013 DXA Scan 08/04/2020 08/04/2018 Mammogram 09/28/2020 09/29/2019, 05/31, 07/03/2015, Additional history exists COVID-19 Vaccine (4 - Pfizer series) 04/30/2021 03/05/2021, 06/28/2020, 06/07/2020 Depression Screening, Annual for Pts 12 and Over 05/31/2022 05/31/2021 DTaP,Tdap,and Td Vaccines (2 - Td or Tdap) 06/21/2022 06/21/2012 *BISPHONATE OR OTHER ACCEPTABLE MEDICATION NEEDED FOR OSTEOPOROSIS (REFER TO SMARTSET #1146) 09/20/2022 Influenza Vaccine (FLU shot) (#1) 2022 12/05/2021, 01/09/2021, 11/12/2019, Additional history exists COLONOSCOPY-EVERY 5 YRS AGES 18-100 11/12/2022 11/12/2017, 11/12/2017 TSH 11/19/2022 11/19/2021, 09/30, 09/21/2019, Additional history exists GFR 07/12/2023 07/11/2022, 1007/2021, 05/31/2021, Additional history exists Albumin/Creatinine Ratio 05/31/2024 05/31/2021 Lipid Panel 11/19/2026 11/19/2021, 09/30, 09/14/2019, Additional history exists VITAMIN D LEVEL ONCE IN A LIFETIME-USE SMARTSET# [id number] Completed 01/05/2018, 11/22/2012 Pneumococcal Vaccine: 65+ Years [...] filedocumented as of this encounter Care Teams Childcare Teacher Relationship Specialty Start Date End Date Demetra Bowman, [address] [place] [address] PCP - General Family Medicine 05/20/18 documented as of this encounter
--- OUTSIDE RECORDS SUMMARY | 2023-01-13 19:34 | External Medical Summary | Summary of Care ---
Author Name Unknown Organization [facility] Address [address] [place] [address] Phone [phone] Care Team Providers Care Receiving Specialist Name Role Phone Demetra Bowman DO Primary Care Provider [phone] Reason for Visit * Reason Onset Date Comments case management 10/29/2022 Encounter Details Date Type Department Care Team Description 10/29/2022 Facility Examiner Telephone Care Coordination [address] [place], [place] [phone] Rebecca Daniel, MS [address] [place], [place] [phone] case management Allergies Active Allergy Reactions Severity Noted Date Comments Pollen 11/03/2017 Nickel Rash 11/03/2017 documented as of this encounter (statuses as of 10/29/2022) Medications Medication Sig Dispensed Refills Start Date [...] as of this encounter (statuses as of 10/29/2022) Active Problems Problem Noted Date Age-related osteoporosis without current pathological fracture 09/17/2022 Gastro-esophageal reflux disease without esophagitis 12/05/2021 Food insecurity 06/10/2021 Overview: Per [facility] Protocol Alcohol consumption of more than [...] as of this encounter (statuses as of 10/29/2022) Resolved Problems Problem Noted Date Resolved Date [...] as of this encounter (statuses as of 10/29/2022) Immunizations Name Administration Dates Next Due COVID-19 [...] Telephone Encounter - Rebecca Daniel MS - 10/29/2022 12:54 PM EDT Follow-up Routine Attempted Phone Call First Attempt Call Outcome Left Voicemail/Message Plan To attempt another outreach documented in this encounter Plan of Treatment Upcoming Encounters Date Type Specialty Care Team Description 11/14/2022 Cardiac Studies Cardiac Studies 01/28/2023 Office Visit Family Medicine Demetra Bowman, [address] [place] [address] Scheduled Procedures Name Priority Associated Diagnoses Date/Ti me COLONOSCOPY FLEXIBLE PROXIMAL DIAGNOSTIC Recall History of colon polyps Health Maintenance Due Date Last Done Comments LUNG CANCER SCREENING - USE SMARTSET 10414 05/07/2001 Zoster Vaccines (2 of 3) 03/17/2013 [...] D LEVEL ONCE IN A LIFETIME-USE SMARTSET# [id number] Completed 01/05/2018, 11/22/2012 Pneumococcal Vaccine: 65+ Years [...] filedocumented as of this encounter Care Teams Receiving Specialist Relationship Specialty Start Date End Date Demetra Bowman, [address] [place] [address] PCP - General Family Medicine 05/20/18 documented as of this encounter
--- OUTSIDE RECORDS SUMMARY | 2023-01-13 19:34 | External Medical Summary | Summary of Care ---
Author Name Unknown Organization [facility] Address [address] [facility] [place] [address] Phone [phone] Care Team Providers Care Pipe Line Inspector Name Role Phone Gracie Demetra Brien DIXON Primary Care Provider [phone] Reason for Visit * Reason Onset Date Comments Medication Problem 10/13/2022 Encounter Details Date Type Department Care Team Description 10/13/2022 Refill [facility] [address] [place] [address] Michelle Mathur MD [address] [place] [address] Bilateral leg edema* Allergies Active Allergy Reactions Severity Noted Date [...] 08/01/2021 Active Fluocinolone Acetonide 0.025 % External OintmentIndicatio ns:Cheilitis Apply topically to affected area 2 times a day . Apply to affected skin. Do not use more than 2 weeks. 30 g 0 11/20/2021 Active Losartan Potassium 100 MG Oral Tablet (Cozaar)Indicatio ns:HTN, goal below 140/90 TAKE 1 TABLET BY MOUTH EVERY DAY IN THE MORNING 90 Tablet 3 01/15/2022 Active Allopurinol 300 MG Oral Tablet (Zyloprim)Indicat ions:Gouty arthropathy TAKE 1 TABLET BY MOUTH EVERY DAY 90 Tablet 3 01/15/2022 Active Atorvastatin Calcium 80 MG Oral Tablet (Lipitor)Indicati ons:Dyslipidemia, goal LDL below 100 TAKE 1 TABLET BY MOUTH EVERY DAY 90 Tablet 3 01/15/2022 Active Levothyroxine Sodium 50 MCG Oral Tablet (Levoxyl)Indicati ons:Hypothyroidis m TAKE ONE TABLET BY MOUTH ONCE DAILY (AT LEAST 30 MINUTES PRIOR TO BREAKFAST OR OTHER MEDS) 90 Tablet 3 01/27/2022 Active Pantoprazole Sodium 20 MG Oral Tablet Delayed Release (Protonix)Indicat ions:Acute alcoholic gastritis without hemorrhage TAKE 1 TABLET BY MOUTH EVERY MORNING 30 MINUTES PRIOR TO BREAKFAST. DO NOT CUT, CRUSH, OR CHEW 90 Tablet 1 07/14/2022 Active amLODIPine Besylate 5 MG Oral Tablet (Norvasc) TAKE 1 TABLET BY MOUTH EVERY DAY IN THE MORNING 90 Tablet 3 08/26/2022 Active Venlafaxine HCl ER 150 MG Oral Capsule Extended Release 24 Hour (Effexor XR)Indications:Mo derate episode of recurrent major depressive disorder (HCC) TAKE BY MOUTH 1 CAPSULE IN THE MORNING. DO NOT CUT, CRUSH, OR CHEW.. 90 Capsule 1 09/29/2022 Active Furosemide 20 MG Oral Tablet (Lasix)Indication s:Bilateral leg edema Take 1 Tablet by mouth in the morning. 60 Tablet 2 10/13/2022 Active Furosemide 20 MG Oral Tablet (Lasix)Indication s:Bilateral leg edema TAKE ONE TABLET BY MOUTH ONCE DAILY NEEDED (FOR SWELLING IN THE LEGS), FOR FLUID ACCUMULATION OR WEIGHT GAIN. 90 Tablet 3 09/29/2022 3 Discontinue d(Medicatio n List Clean Up) documented as of this encounter (statuses as of 11/06/2022) Active Problems Problem Noted Date Age-related osteoporosis without current pathological fracture 09/17/2022 Gastro-esophageal reflux disease without esophagitis 12/05/2021 Food insecurity 06/10/2021 Overview: Per [facility] Protocol Alcohol consumption of more [...] encounter Miscellaneous Notes * Telephone Encounter - Julia Eminhizer, SENIOR UI SOFTWARE ENGINEER - 10/30/2022 11:59 AM EDT Mailbox is full unable to leave a message * Telephone Encounter - Julia Yuen LPN - 10/29/2022 12:14 PM EDT Mailbox is full, unable to leave a message * Telephone Encounter - Julia Yuen LPN - 10/14/2022 3:05 PM EDT Attempted to call patient. Mailbox is full, unable to leave a message * Telephone Encounter - Cari Serrato LPN - 10/13/2022 10:43 AM EDT Attempted to call pt's mobile - mailbox is full - unable to leave message Attempted to call pt's EC home number - no voicemail set up - unable to leave message * Telephone Encounter - Michelle Mathur MD - 10/13/2022 9:57 AM EDTSigned Prescriptions: Disp Refills Furosemide 20 MG Oral Tablet (Lasix) 60 Tab*2 Sig: Take 1 Tabletby mouth in the morning.Authorizing Provider: MICHELLE MATHUR * Telephone Encounter - Michelle Mathur MD - 10/13/2022 9:55 AM EDT 20 mg daily prescription sent. 40 mg lasix was only to be for a few days. Has history of hyponatremia so must be cautious about diuretics. Needs to have lab work completed that was ordered at 09/17/2022 appointment to monitor electrolytes. Michelle Mathur MD * Telephone Encounter - Manju Allison RP - 10/13/2022 9:47 AM EDT Please issue Rx for dose increase with refills if appropriate. See 09/17/22 OV. Thank you, Elliott MenjivarD Clinical Pharmacist [facility] ([facility]) (formerly Telepharmacy) 10/13/22 9:47 AM [phone] * Telephone Encounter - Makayla Clemons CPhT - 10/13/2022 9:26 AM EDT Pt is requesting high priority as she stated she is going to be out of medication tomorrow. Pt calling in to request a dose change on their Furosemide 20 MG Oral Tablet (Lasix). Current dose: take once a day Requested dose: take twice a day Reason for request: Pt stated she was seen by a different Dr (see 09/17 OV) and she stated that Dr increased the medication to twice a day. Pt believes she takes 2 at the same time and stated in the morning. Preferred pharmacy: [id number] [facility] Patient unwilling to speak with pharmacist at this time. Routing to pharmacist pool to advise. Thank you, Emmie Clemons Advanced Nursing Professor I [facility] (Formerly Telepharmacy) 10/13/2022,9:27 AM documented in this encounter Plan of Treatment Upcoming Encounters Date Type Specialty Care Team Description 11/14/2022 Cardiac Studies Cardiac Studies 01/28/2023 Office Visit Family Medicine Demetra Bowman, DO [address] [place] [address] Scheduled Procedures Name Priority Associated Diagnoses Date/Ti me COLONOSCOPY FLEXIBLE PROXIMAL DIAGNOSTIC Recall History of colon polyps Health Maintenance Due Date Last Done Comments LUNG CANCER SCREENING - USE SMARTSET 84200 05/07/2001 Zoster Vaccines (2 of 3) 03/17/2013 [...] 09/21/2019, Additional history exists GFR 07/12/2023 07/11/2022, 10/07/2021, 05/31/2021, Additional history exists Albumin/Creatinine Ratio 05/31/2024 05/31/2021 Lipid Panel 11/19/2026 11/19/2021, 09/30, 09/14/2019, Additional history exists VITAMIN D LEVEL ONCE IN A LIFETIME-USE SMARTSET# [id number] Completed 01/05/2018, 11/22/2012 Pneumococcal Vaccine: 65+ Years [...] of this encounter Visit Diagnoses Diagnosis Bilateral leg edema- Primary Edema documented in this encounter Care Teams Pipe Line Inspector Relationship Specialty Start Date End Date Demetra Bowman, DO [address] [place] [address] PCP - General Family Medicine 05/20/18 documented as of this encounter
--- OUTSIDE RECORDS SUMMARY | 2023-01-13 19:34 | External Medical Summary | Summary of Care ---
Author Name Unknown Organization [facility] Address [address] [facility] [place] [address] Phone [phone] Care Team Providers Care Cork Insulation Setter Name Role Phone Gracie Demetra Brien DIXON Primary Care Provider [phone] Reason for Visit * Reason Onset Date Comments Medication Problem 10/13/2022 Encounter Details Date Type Department Care Team Description 10/13/2022 Refill [facility] [address] [place] [address] Michelle Mathur MD [address] [place] [address] Bilateral leg edema* Allergies Active Allergy Reactions Severity Noted Date Comments Pollen 11/03/2017 Nickel Rash 11/03/2017 documented as of this encounter (statuses as of 10/30/2022) Medications Medication Sig Dispensed Refills Start Date [...] as of this encounter (statuses as of 10/30/2022) Active Problems Problem Noted Date Age-related osteoporosis without current pathological fracture 09/17/2022 Gastro-esophageal reflux disease without esophagitis 12/05/2021 Food insecurity 06/10/2021 Overview: Per [facility] Protocol Alcohol consumption of more [...] as of this encounter (statuses as of 10/30/2022) Resolved Problems Problem Noted Date Resolved Date [...] as of this encounter (statuses as of 10/30/2022) Immunizations Name Administration Dates Next Due COVID-19 [...] Notes * Telephone Encounter - Julia Eminhizer, SSN/SSBN WEAPONS EQUIPMENT OPERATOR - 10/30/2022 11:59 AM EDT Mailbox is [...] Services (CCPS) (formerly Telepharmacy) 10/13/22 9:47 AM [phone] * Telephone Encounter - Makayla Clemons CPhT [...] stated in the morning. Preferred pharmacy: E [facility]ACY #[id number] [address] [facility] Patient unwilling to speak with pharmacist at this time. Routing to pharmacist pool to advise. Thank you, Emmie Clemons Environmental Director I Centralized Clinical Pharmacy Services (Formerly Telepharmacy) 10/13/2022,9:27 AM documented in this encounter Plan of Treatment Upcoming Encounters Date Type Specialty Care Team Description 11/14/2022 Cardiac Studies Cardiac Studies 01/28/2023 Office Visit Family Medicine Demetra Bwoman, DO [address] [place] [address] Scheduled Procedures Name Priority Associated Diagnoses Date/Ti me COLONOSCOPY FLEXIBLE PROXIMAL DIAGNOSTIC Recall History of colon polyps Health Maintenance Due Date Last Done Comments LUNG CANCER SCREENING - USE SMARTSET 24673 05/07/2001 Zoster Vaccines (2 of 3) 03/17/2013 [...] D LEVEL ONCE IN A LIFETIME-USE SMARTSET# [id number] Completed 01/05/2018, 11/22/2012 Pneumococcal Vaccine: 65+ Years [...] Edema documented in this encounter Care Teams Cork Insulation Setter Relationship Specialty Start Date End Date Demetra Bowman, DO [address] [place] [address] PCP - General Family Medicine 05/20/18 documented as of this encounter
--- OUTSIDE RECORDS SUMMARY | 2023-01-13 19:34 | External Medical Summary | Summary of Care ---
Author Name Unknown Organization [facility] Address [address] [facility] [place] [address] Phone [phone] Care Team Providers Care Leak Inspector Name Role Phone Gracie Demetra Brien DIXON Primary Care Provider [phone] Reason for Visit * Reason Onset Date Comments Medication Problem 10/13/2022 Encounter Details Date Type Department Care Team Description 10/13/2022 Refill [facility] [address] [place] [address] Michelle Mathur MD [address] [place] [address] Bilateral leg edema* Allergies Active [...] esophagitis 12/05/2021 Food insecurity 06/10/2021 Overview: Per [facility] Protocol Alcohol consumption of more [...] Notes * Telephone Encounter - Julia Eminhizer, RUBBER HEEL AND SOLE PRESS TENDER - 10/29/2022 12:14 PM EDT Mailbox is full, unable to leave a message * Telephone Encounter - Julia Yuen LPN - 10/14/2022 3:05 PM EDT Attempted to call patient. Mailbox is full, unable to leave a message * Telephone Encounter - Cari Serarto LPN - 10/13/2022 10:43 AM EDT Attempted to call pt's mobile - mailbox is full - unable to leave message Attempted to call pt's EC home number - no voicemail set up - unable to leave message * Telephone Encounter - Michelle Mathur MD - 10/13/2022 9:57 AM EDTSigned Prescriptions: Disp Refills Furosemide 20 MG Oral Tablet (Lasix) 60 Tab*2 Sig: Take 1 Tablet by mouth in the morning.Authorizing Provider: MICHELLE MATHUR [...] if appropriate. See 09/17/22 OV. Thank you, Manju Allison PharmD Clinical Pharmacist Centralized Clinical Pharmacy Services (CCPS) (formerly Telepharmacy) 10/13/22 9:47 AM [phone] * Telephone Encounter - Makayla Clemons CPhT [...] stated in the morning. Preferred pharmacy: E [facility]/PHARMACY #[id number] [place] [address] Patient unwilling to speak with pharmacist at this time. Routing to pharmacist pool to advise. Thank you, Emmie Clemons Vp Clinical Research I Centralized Clinical Pharmacy Services (Formerly Telepharmacy) 10/13/2022,9:27 AM documented in this encounter Plan of Treatment Upcoming Encounters Date Type Specialty Care Team Description 11/14/2022 Cardiac Studies Cardiac Studies 01/28/2023 Office Visit Family Medicine Demetra Bowman, DO [address] [place] [address] Scheduled Procedures Name Priority Associated Diagnoses Date/Ti me COLONOSCOPY FLEXIBLE PROXIMAL DIAGNOSTIC Recall History of colon polyps Health Maintenance Due Date Last Done Comments LUNG CANCER SCREENING - USE SMARTSET 09368 05/07/2001 Zoster Vaccines (2 of 3) 03/17/2013 [...] D LEVEL ONCE IN A LIFETIME-USE SMARTSET# [id number] Completed 01/05/2018, 11/22/2012 Pneumococcal Vaccine: 65+ Years [...] Edema documented in this encounter Care Teams Leak Inspector Relationship Specialty Start Date End Date Demetra Bowman, DO [address] [place] [address] PCP - General Family Medicine 05/20/18 documented as of this encounter
--- OUTSIDE RECORDS SUMMARY | 2023-01-13 19:34 | External Medical Summary | Summary of Care ---
Author Name Unknown Organization [facility] Address [address] [facility] [place] [address] Phone [phone] Care Team Providers Care Compressed Gas Plant Worker Name Role Phone Gracie Demetra Brien DIXON Primary Care Provider [phone] Reason for Visit * Reason Onset Date Comments Medication Problem 10/13/2022 Encounter Details Date Type Department Care Team Description 10/13/2022 Refill [facility] [address] [place] [address] Michelle Mathur MD [address] [place] [address] Bilateral leg edema* Allergies Active Allergy Reactions Severity Noted Date Comments Pollen 11/03/2017 Nickel Rash 11/03/2017 documented as of this encounter (statuses as of 10/13/2022) Medications Medication Sig Dispensed Refills Start Date [...] as of this encounter (statuses as of 10/13/2022) Active Problems Problem Noted Date Age-related osteoporosis without current pathological fracture 09/17/2022 Gastro-esophageal reflux disease without esophagitis 12/05/2021 Food insecurity 06/10/2021 Overview: Per [facility] Protocol Alcohol consumption of more [...] as of this encounter (statuses as of 10/13/2022) Resolved Problems Problem Noted Date Resolved Date [...] as of this encounter (statuses as of 10/13/2022) Immunizations Name Administration Dates Next Due COVID-19 mRNA, LNP-s, No Pre serve, 2-Dose Series (Pfizer) 03/05/2021,06/28/2020,06/07/2020 Pneumococcal Conjugate Vacc, 13 Valent (Prevnar) 11/26/2016 Pneumococcal Polysaccharide PPV23 (Pneumovax) 09/21/2019,12/13/2018 Seasonal Influenza, Quadriva lent Hd (Fluzone Hd) 12/05/2021,01/09/2021 Seasonal Influenza, Quadriva lent, No Preserve, 6 Mons & Above, IM 11/12/2019 Seasonal Influenza, Trivalen t, High Dose, No [...] encounter Miscellaneous Notes * Telephone Encounter - Cari Serrato LPN [...] MD * Telephone Encounter - Manju Allison [facility] - 10/13/2022 9:47 AM EDT Please issue Rx for dose increase with refills if appropriate. See 09/17/22 OV. Thank you, Manju Allison, PharmD Clinical Pharmacist Centralized Clinical Pharmacy Services (CCPS) (formerly Telepharmacy) 10/13/22 9:47 AM [phone] * Telephone Encounter - Makayla Clemons CPhT [...] stated in the morning. Preferred pharmacy: E [facility]/PHARMACY #[id number] Patient unwilling to speak with pharmacist at this time. Routing to pharmacist pool to advise. Thank you, Emmie Clemons Steel Inspector I Centralized Clinical Pharmacy Services (Formerly Telepharmacy) 10/13/2022,9:27 AM documented in this encounter Plan of Treatment Upcoming Encounters Date Type Specialty Care Team Description 11/14/2022 Cardiac Studies Cardiac Studies 01/28/2023 Office Visit Family Medicine Demetra Bowman, DO [address] [place] [address] Scheduled Procedures Name Priority Associated Diagnoses Date/Ti me COLONOSCOPY FLEXIBLE PROXIMAL DIAGNOSTIC Recall History of colon polyps Health Maintenance Due Date Last Done Comments LUNG CANCER SCREENING - USE SMARTSET 35018 05/07/2001 Zoster Vaccines (2 of 3) 03/17/2013 [...] D LEVEL ONCE IN A LIFETIME-USE SMARTSET# [id number] Completed 01/05/2018, 11/22/2012 Pneumococcal Vaccine: 65+ Years [...] Edema documented in this encounter Care Teams Compressed Gas Plant Worker Relationship Specialty Start Date End Date Demetra Bowman, [address] [place] [address] PCP - General Family Medicine 05/20/18 documented as of this encounter
--- OUTSIDE RECORDS SUMMARY | 2023-01-13 19:34 | External Medical Summary | Summary of Care ---
Author Name Unknown Organization [facility] Address [address] [facility] [place] [address] Phone [phone] Care Team Providers Care Subway Car Repairer Name Role Phone Gracie Demetra Brien DIXON Primary Care Provider [phone] Reason for Visit * Reason Onset Date Comments Medication Problem 10/13/2022 Encounter Details Date Type Department Care Team Description 10/13/2022 Refill [facility] [address] [place] [address] Michelle Mathur MD [address] [place] [address] Bilateral leg edema* Allergies Active Allergy Reactions Severity Noted Date Comments Pollen 11/03/2017 Nickel Rash 11/03/2017 documented as of this encounter (statuses as of 10/14/2022) Medications Medication Sig Dispensed Refills Start Date [...] as of this encounter (statuses as of 10/14/2022) Active Problems Problem Noted Date Age-related osteoporosis without current pathological fracture 09/17/2022 Gastro-esophageal reflux disease without esophagitis 12/05/2021 Food insecurity 06/10/2021 Overview: Per [facility] Protocol Alcohol consumption of more [...] as of this encounter (statuses as of 10/14/2022) Resolved Problems Problem Noted Date Resolved Date [...] as of this encounter (statuses as of 10/14/2022) Immunizations Name Administration Dates Next Due COVID-19 [...] Miscellaneous Notes * Telephone Encounter - Julia Yuen LPN [...] MD * Telephone Encounter - Manju Allison [facility] - 10/13/2022 9:47 AM EDT Please issue Rx for dose increase with refills if appropriate. See 09/17/22 OV. Thank you, Manju Allison, PharmD Clinical Pharmacist Centralized Clinical Pharmacy Services (CCPS) (formerly Telepharmacy) 10/13/22 9:47 AM [phone] * Telephone Encounter - Makayla Clemons CPhT [...] stated in the morning. Preferred pharmacy: E [facility]/PHARMACY #[id number] Patient unwilling to speak with pharmacist at this time. Routing to pharmacist pool to advise. Thank you, Emmie Clemons Duct Layer Supervisor I Centralized Clinical Pharmacy Services (Formerly Telepharmacy) 10/13/2022,9:27 AM documented in this encounter Plan of Treatment Upcoming Encounters Date Type Specialty Care Team Description 11/14/2022 Cardiac Studies Cardiac Studies 01/28/2023 Office Visit Family Medicine Demetra Bowman, [address] [place] [address] Scheduled Procedures Name Priority Associated Diagnoses Date/Ti me COLONOSCOPY FLEXIBLE PROXIMAL DIAGNOSTIC Recall History of colon polyps Health Maintenance Due Date Last Done Comments LUNG CANCER SCREENING - USE SMARTSET 37190 05/07/2001 Zoster Vaccines (2 of 3) 03/17/2013 [...] D LEVEL ONCE IN A LIFETIME-USE SMARTSET# [id number] Completed 01/05/2018, 11/22/2012 Pneumococcal Vaccine: 65+ Years [...] Edema documented in this encounter Care Teams Subway Car Repairer Relationship Specialty Start Date End Date Demetra Bowman, [address] [place] [address] PCP - General Family Medicine 05/20/18 documented as of this encounter
--- OUTSIDE RECORDS SUMMARY | 2023-01-13 19:34 | External Medical Summary | Summary of Care ---
Author Name Unknown Organization [facility] Address [address] [facility] [place] [address] Phone [phone] Care Team Providers Care Physiological Chemist Name Role Phone Gracie Demetra Brien DIXON Primary Care Provider [phone] Reason for Visit * Reason Onset Date Comments Medication Problem 10/13/2022 Encounter Details Date Type Department Care Team Description 10/13/2022 Refill [facility] [address] [place] [address] Michelle Mathur MD [address] [place] [address] Bilateral leg edema* Allergies Active Allergy Reactions Severity Noted Date Comments Pollen 11/03/2017 Nickel Rash 11/03/2017 documented as of this encounter (statuses as of 11/11/2022) Medications Medication Sig Dispensed Refills Start Date [...] as of this encounter (statuses as of 11/11/2022) Active Problems Problem Noted Date Age-related osteoporosis without current pathological fracture 09/17/2022 Gastro-esophageal reflux disease without esophagitis 12/05/2021 Food insecurity 06/10/2021 Overview: Per [facility] Protocol Alcohol consumption of more [...] as of this encounter (statuses as of 11/11/2022) Resolved Problems Problem Noted Date Resolved Date [...] as of this encounter (statuses as of 11/11/2022) Immunizations Name Administration Dates Next Due COVID-19 [...] Miscellaneous Notes * Telephone Encounter - Cari D Serrato, LOCK TECHNICIAN - 11/11/2022 12:32 PM EDT Letter sent * Telephone Encounter - Julia Yuen LPN - 10/30/2022 11:59 AM EDT Mailbox is [...] to leave message Attempted to call pt's home number - no voicemail set up [...] Services (CCPS) (formerly Telepharmacy) 10/13/22 9:47 AM [phone] * Telephone Encounter - Makayla Clemons CPhT [...] stated in the morning. Preferred pharmacy: E [id number] [address] [facility] Patient unwilling to speak with pharmacist at this time. Routing to pharmacist pool to advise. Thank you, Emmie Clemons Janitorial Maintenance Worker I Centralized Clinical Pharmacy Services (Formerly Telepharmacy) 10/13/2022,9:27 AM documented in this encounter Plan of Treatment Upcoming Encounters Date Type Specialty Care Team Description 01/28/2023 Office Visit Family Medicine Demetra Bowman, [address] [place] [address] Scheduled Procedures Name Priority Associated Diagnoses Date/Ti me COLONOSCOPY FLEXIBLE PROXIMAL DIAGNOSTIC Recall History of colon polyps Health Maintenance Due Date Last Done Comments LUNG CANCER SCREENING - USE SMARTSET 89040 05/07/2001 Zoster Vaccines (2 of 3) 03/17/2013 [...] D LEVEL ONCE IN A LIFETIME-USE SMARTSET# [id number] Completed 01/05/2018, 11/22/2012 Pneumococcal Vaccine: 65+ Years [...] Edema documented in this encounter Care Teams Physiological Chemist Relationship Specialty Start Date End Date Demetra Bowman, DO [address] [place] [address] PCP - General Family Medicine 05/20/18 documented as of this encounter
--- OUTSIDE RECORDS SUMMARY | 2023-01-13 19:34 | External Medical Summary | Summary of Care ---
Author Name Unknown Organization [facility] Address [address] [place] [address] Phone [phone] Care Team Providers Care Auto Suspension And Steering Mechanic Name Role Phone Demetra Bowman DO Primary Care Provider [phone] Reason for Visit * Reason Onset Date Comments case management 11/10/2022 Encounter Details Date Type Department Care Team Description 11/10/2022 Continuous Process Machine Operator Telephone Care Coordination [address] [place], [place] [id number] Rebecca Daniel, MS [address] [place] [address] [place], [place] [id number] case management Allergies Active Allergy Reactions Severity Noted Date Comments Pollen 11/03/2017 Nickel Rash 11/03/2017 documented as of this encounter (statuses as of 11/10/2022) Medications Medication Sig Dispensed Refills Start Date [...] as of this encounter (statuses as of 11/10/2022) Active Problems Problem Noted Date Age-related osteoporosis without current pathological fracture 09/17/2022 Gastro-esophageal reflux disease without esophagitis 12/05/2021 Food insecurity 06/10/2021 Overview: Per [facility] Protocol Alcohol consumption of more than [...] as of this encounter (statuses as of 11/10/2022) Resolved Problems Problem Noted Date Resolved Date Fracture of proximal end of right humerus with routine healing 06/04/2020 05/27/2022 Overview: Noted in 2020 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 12/02/2021 Overview: HISTORICAL Overweight (BMI 25.0-29.9) 04/17/201511/26 Overview: bmi= 29.12 04/17/15 Fracture of humerus, proximal, left, closed /10/201410/28/2017 Hot flashes 04/06/2014 10/28/2017 DJD (degenerative joint [...] as of this encounter (statuses as of 11/10/2022) Immunizations Name Administration Dates Next Due COVID-19 [...] Telephone Encounter - Rebecca Daniel MS - 11/10/2022 2:15 PM EDT Follow-up Routine Attempted Phone Call Third Attempt Call Outcome Left Voicemail/Message Plan Close in 48 hours without call back documented in this encounter Plan of Treatment Upcoming Encounters Date Type Specialty Care Team Description 01/28/2023 Office Visit Family Medicine Demetra Bowman, DO [address] [place], [place] [id number] Scheduled Procedures Name Priority Associated Diagnoses Date/Ti me COLONOSCOPY FLEXIBLE PROXIMAL DIAGNOSTIC Recall History of colon polyps Health Maintenance Due Date Last Done Comments LUNG CANCER SCREENING - USE SMARTSET 15419 05/07/2001 Zoster Vaccines (2 of 3) 03/17/2013 [...] D LEVEL ONCE IN A LIFETIME-USE SMARTSET# [id number] Completed 01/05/2018, 11/22/2012 Pneumococcal Vaccine: 65+ Years [...] filedocumented as of this encounter Care Teams Auto Suspension And Steering Mechanic Relationship Specialty Start Date End Date Demetra Bowman, [address] [place] [address] PCP - General Family Medicine 05/20/18 documented as of this encounter
--- OUTSIDE RECORDS SUMMARY | 2023-01-13 19:34 | External Medical Summary | Summary of Care ---
Author Name Unknown Organization [facility] Address [address] [facility] [place] [address] Phone [phone] Care Team Providers Care Medical Instructor Name Role Phone Gracie Demetra Brien DIXON Primary Care Provider [phone] Reason for Visit * Reason Onset Date Comments Medication Problem 10/13/2022 Encounter Details Date Type Department Care Team Description 10/13/2022 Refill [facility] [address] [place] [address] Michelle Mathur MD [address] [place] [address] Bilateral leg edema* Allergies Active [...] esophagitis 12/05/2021 Food insecurity 06/10/2021 Overview: Per [facility] Protocol Alcohol consumption of more [...] encounter Miscellaneous Notes * Telephone Encounter - Michelle Mathur MD [...] MD * Telephone Encounter - Manju Allison RPh - 10/13/2022 9:47 AM EDT Please issue Rx for dose increase with refills if appropriate. See 09/17/22 OV. Thank you, Manju Allison, PharmD Clinical Pharmacist Centralized Clinical Pharmacy Services (CCPS) (formerly Telepharmacy) 10/13/22 9:47 AM [phone] * Telephone Encounter - Makayla Clemons CPhT [...] stated in the morning. Preferred pharmacy: E [facility]/PHARMACY #[id number] Patient unwilling to speak with pharmacist at this time. Routing to pharmacist pool to advise. Thank you, Emmie Clemons Incident Engineer I Centralized Clinical Pharmacy Services (Formerly Telepharmacy) 10/13/2022,9:27 AM documented in this encounter Plan of Treatment Upcoming Encounters Date Type Specialty Care Team Description 11/14/2022 Cardiac Studies Cardiac Studies 01/28/2023 Office Visit Family Medicine Demetra Bowman, DO [address] [place] [address] Scheduled Procedures Name Priority Associated Diagnoses Date/Ti me COLONOSCOPY FLEXIBLE PROXIMAL DIAGNOSTIC Recall History of colon polyps Health Maintenance Due Date Last Done Comments LUNG CANCER SCREENING - USE SMARTSET 23461 05/07/2001 Zoster Vaccines (2 of 3) 03/17/2013 [...] D LEVEL ONCE IN A LIFETIME-USE SMARTSET# [id number] Completed 01/05/2018, 11/22/2012 Pneumococcal Vaccine: 65+ Years [...] Edema documented in this encounter Care Teams Medical Instructor Relationship Specialty Start Date End Date Demetra Bowman, [address] [place] [address] PCP - General Family Medicine 05/20/18 documented as of this encounter
--- OUTSIDE RECORDS SUMMARY | 2023-01-13 19:35 | External Medical Summary | Summary of Care ---
Author Name Unknown Organization [facility] Address [address] [place] [address] Phone [phone] Care Team Providers Care Reefer Truck Driver Name Role Phone Demetra Bowman DO Primary Care Provider [phone] Reason for Visit * Reason Onset Date Comments case management 09/23/2022 Encounter Details Date Type Department Care Team Description 09/23/2022 Early Breastfeeding Care Specialist Telephone Care Coordination [address] [place], [place] [id number] Rebecca Daniel, MS [address] [place], [place] [id number] case management Allergies Active Allergy Reactions Severity Noted Date Comments Pollen 11/03/2017 Nickel Rash 11/03/2017 documented as of this encounter (statuses as of 09/23/2022) Medications Medication Sig Dispensed Refills Start Date End Date Status zoster vac recomb adjuvanted (SHINGRIX) 50 MCG/0.5ML injection Inject 0.5 mL into a large muscle now and repeat dose in 60 to 180 days 1 Each 1 11/11/2019 Active Acetaminophen 325 MG Oral Tablet (Tylenol) Take 2 Tablets by mouth every 6 hours as needed. 0 08/01/2021 Active Fluocinolone Acetonide 0.025 % External OintmentIndication s:Cheilitis Apply topically to affected area 2 times a day . Apply to affected skin. Do not use more than 2 weeks. 30 g 0 11/20/2021 Active Losartan Potassium 100 MG Oral Tablet (Cozaar)Indication s:HTN, goal below 140/90 TAKE 1 TABLET BY MOUTH EVERY DAY IN THE MORNING 90 Tablet 3 01/15/2022 Active Allopurinol 300 MG Oral Tablet (Zyloprim)Indicati ons:Gouty arthropathy TAKE 1 TABLET BY MOUTH EVERY DAY 90 Tablet 3 01/15/2022 Active Atorvastatin Calcium 80 MG Oral Tablet (Lipitor)Indicatio ns:Dyslipidemia, goal LDL below 100 TAKE 1 TABLET BY MOUTH EVERY DAY 90 Tablet 3 01/15/2022 Active Levothyroxine Sodium 50 MCG Oral Tablet (Levoxyl)Indicatio ns:Hypothyroidism TAKE ONE TABLET BY MOUTH ONCE DAILY (AT LEAST 30 MINUTES PRIOR TO BREAKFAST OR OTHER MEDS) 90 Tablet 3 01/27/2022 Active Venlafaxine HCl ER 150 MG Oral Capsule Extended Release 24 Hour (Effexor XR)Indications:Mod erate episode of recurrent major depressive disorder (HCC) TAKE BY MOUTH 1 CAPSULE IN THE MORNING. DO NOT CUT, CRUSH, OR CHEW.. 90 Capsule 1 06/10/2022 Active Pantoprazole Sodium 20 MG Oral Tablet Delayed Release (Protonix)Indicati ons:Acute alcoholic gastritis without hemorrhage TAKE 1 TABLET BY MOUTH EVERY MORNING 30 MINUTES PRIOR TO BREAKFAST. DO NOT CUT, CRUSH, OR CHEW 90 Tablet 1 07/14/2022 Active amLODIPine Besylate 5 MG Oral Tablet (Norvasc) TAKE 1 TABLET BY MOUTH EVERY DAY IN THE MORNING 90 Tablet 3 08/26/2022 Active Furosemide 20 MG Oral Tablet (Lasix)Indications :Bilateral leg edema TAKE ONE TABLET BY MOUTH ONCE DAILY NEEDED (FOR SWELLING IN THE LEGS), FOR FLUID ACCUMULATION OR WEIGHT GAIN. 30 Tablet 4 09/05/2022 Active documented as of this encounter (statuses as of 09/23/2022) Active Problems Problem Noted Date Age-related osteoporosis without current pathological fracture 09/17/2022 Gastro-esophageal reflux disease without esophagitis 12/05/2021 Food insecurity 06/10/2021 Overview: Per [facility] Protocol Alcohol consumption of more than [...] as of this encounter (statuses as of 09/23/2022) Resolved Problems Problem Noted Date Resolved Date [...] as of this encounter (statuses as of 09/23/2022) Immunizations Name Administration Dates Next Due COVID-19 [...] Miscellaneous Notes * Telephone Encounter - Rebecca Tesfaye María, MS - 09/23/2022 3:32 PM EDT S- AC called pt and introduced self and role. Pt reports that she is doin okay at this time. AC explained reason for call was f/u from PCP appt about drinking. AC made her aware of note and daughtersconcerned and she was aware. Pt reports that she is currently working on cutting back on smoking and is not sure she wants to cut back on drinking too. Talked about being sick and having emphysema so that really took a hit on him. She reports that she does not think the drinking is a thing she necessarily wants, but is instead a habit. She reports she has been drinking for most of her life. Pt reports she is able to stop on her own. Is open to OP counseling but wants to come back aroundto it as now is not the time. Saved name/number in phone, encouraged her to call AC w/ needs or if she changes her mind. open to call in a couple weeks to readdress this situation and thanked me for that. O-Phone, speech and tone normal A-Mood appeared positive, doing well P-AC will f/u with pt in 1 month. Unsure if she is ready to attack her drinking. Cutting back on smoking right now instead. Feels okay with her motives and habits otherwise. Encouraged to cut back slow on her own anyway. documented in this encounter Plan of Treatment Upcoming Encounters Date Type Specialty Care Team Description 11/14/2022 Cardiac Studies Cardiac Studies 01/28/2023 Office Visit Family Medicine Demetra Bowman, DO [address] [place] [address] Scheduled Procedures Name Priority Associated Diagnoses Date/Ti me COLONOSCOPY FLEXIBLE PROXIMAL DIAGNOSTIC Recall History of colon polyps Health Maintenance Due Date Last Done Comments LUNG CANCER SCREENING - USE SMARTSET 90840 05/07/2001 Zoster Vaccines (2 of 3) 03/17/2013 [...] D LEVEL ONCE IN A LIFETIME-USE SMARTSET# [id number] Completed 01/05/2018, 11/22/2012 Pneumococcal Vaccine: 65+ Years [...] filedocumented as of this encounter Care Teams Reefer Truck Driver Relationship Specialty Start Date End Date Demetra Bowman, [address] [place] [address] PCP - General Family Medicine 05/20/18 documented as of this encounter
--- OUTSIDE RECORDS SUMMARY | 2023-01-13 19:35 | External Medical Summary | Summary of Care ---
Author Name Unknown Organization [facility] Address [address] [facility] [place] [address] Phone [phone] Care Team Providers Care Md Allergy Immunology Name Role Phone Leila Quiñones DO Primary Care Provider [phone] Reason for Visit * Reason Comments eRx-Medication Refill Encounter Details Date Type Department Care Team Description 09/26/2022 Refill [facility] [address] [place] [address] Leila Quiñones DO [address] [place] [address] Moderate episode of recurrent major depressive disorder (HCC) Allergies Active Allergy Reactions Severity Noted Date Comments Pollen 11/03/2017 Nickel Rash 11/03/2017 documented as of this encounter (statuses as of 09/29/2022) Medications Medication Sig Dispensed Refills Start Date End Date Status zoster vac recomb adjuvanted (SHINGRIX) 50 MCG/0.5ML injection Inject 0.5 mL into a large muscle now and repeat dose in 60 to 180 days 1 Each 1 11/11/2019 Active Acetaminophen 325 MG Oral Tablet (Tylenol) Take 2 Tablets by mouth every 6 hours as needed. 0 08/01/2021 Active Fluocinolone Acetonide 0.025 % External OintmentIndicati ons:Cheilitis Apply topically to affected area 2 times a day . Apply to affected skin. Do not use more than 2 weeks. 30 g 0 11/20/2021 Active Losartan Potassium 100 MG Oral Tablet (Cozaar)Indicati ons:HTN, goal below 140/90 TAKE 1 TABLET BY MOUTH EVERY DAY IN THE MORNING 90 Tablet 3 01/15/2022 Active Allopurinol 300 MG Oral Tablet (Zyloprim)Indica tions:Gouty arthropathy TAKE 1 TABLET BY MOUTH EVERY DAY 90 Tablet 3 01/15/2022 Active Atorvastatin Calcium 80 MG Oral Tablet (Lipitor)Indicat ions:Dyslipidemi a, goal LDL below 100 TAKE 1 TABLET BY MOUTH EVERY DAY 90 Tablet 3 01/15/2022 Active Levothyroxine Sodium 50 MCG Oral Tablet (Levoxyl)Indicat ions:Hypothyroid ism TAKE ONE TABLET BY MOUTH ONCE DAILY (AT LEAST 30 MINUTES PRIOR TO BREAKFAST OR OTHER MEDS) 90 Tablet 3 01/27/2022 Active Pantoprazole Sodium 20 MG Oral Tablet Delayed Release (Protonix)Indica tions:Acute alcoholic gastritis without hemorrhage TAKE 1 TABLET BY MOUTH EVERY MORNING 30 MINUTES PRIOR TO BREAKFAST. DO NOT CUT, CRUSH, OR CHEW 90 Tablet 1 07/14/2022 Active amLODIPine Besylate 5 MG Oral Tablet (Norvasc) TAKE 1 TABLET BY MOUTH EVERY DAY IN THE MORNING 90 Tablet 3 08/26/2022 Active Venlafaxine HCl ER 150 MG Oral Capsule Extended Release 24 Hour (Effexor XR)Indications:M oderate episode of recurrent major depressive disorder (HCC) TAKE BY MOUTH 1 CAPSULE IN THE MORNING. DO NOT CUT, CRUSH, OR CHEW.. 90 Capsule 1 09/29/2022 Active Venlafaxine HCl ER 150 MG Oral Capsule Extended Release 24 Hour (Effexor XR)Indications:M oderate episode of recurrent major depressive disorder (HCC) TAKE BY MOUTH 1 CAPSULE IN THE MORNING. DO NOT CUT, CRUSH, OR CHEW.. 90 Capsule 1 06/10/2022 09/30/19 23 Discontinued Furosemide 20 MG Oral Tablet (Lasix)Indicatio ns:Bilateral leg edema TAKE ONE TABLET BY MOUTH ONCE DAILY NEEDED (FOR SWELLING IN THE LEGS), FOR FLUID ACCUMULATION OR WEIGHT GAIN. 30 Tablet 4 09/05/2022 09/30/19 23 Discontinued documented as of this encounter (statuses as of 09/29/2022) Active Problems Problem Noted Date Age-related osteoporosis [...] as of this encounter (statuses as of 09/29/2022) Resolved Problems Problem Noted Date Resolved Date [...] as of this encounter (statuses as of 09/29/2022) Immunizations Name Administration Dates Next Due COVID-19 [...] encounter Miscellaneous Notes * Telephone Encounter - Leila Quiñones DO - 09/29/2022 12:28 PM EDTSigned Prescriptions: Disp Refills Venlafaxine HCl ER 150 MG Oral Capsule Ext*90 Cap*1 Sig: TAKE BY MOUTH 1 CAPSULE IN THE MORNING. DO NOT CUT, CRUSH, OR CHEW.. Authorizing Provider: LEILA QUIÑONES * Telephone Encounter - Lidya Bruno [facility] - 09/29/2022 11:39 AM EDTPending Prescriptions: Disp Refills Venlafaxine HCl ER 150 MG Oral Capsule Ext*90 Cap*1 Sig: TAKE BY MOUTH 1 CAPSULE IN THE MORNING. DO NOT CUT, CRUSH, OR CHEW.. * Telephone Encounter - Lidya Bruno [facility] - 09/29/2022 11:35 AM EDT Unable to authorize medication refills for pended medication(s) at this time. Part of the protocol criteria used for refill authorization was not satisfied. Patient needs NA within NL. Sodium Results: Lab Results Component Value Date/Time SODIUM - [facility] 133 (L) 07/11/2022 01:21 PM SODIUM - [facility] 133 (L) 12/05/2021 01:08 PM SODIUM - [facility] 135 05/31/2021 01:01 PM SODIUM - [facility] 130 (L) 10/03/2019 02:36 PM SODIUM - [facility] 122 (L) 09/21/2019 01:36 PM SODIUM - [facility] 125 (L) 09/14/2019 02:40 PM SODIUM, RANDOM URINE - [facility] <20 10/03/2019 02:36 PM Pending Prescriptions: Disp Refills Venlafaxine HCl ER 150 MG Oral Capsule Ex*90 Cap*1 Sig: TAKE BY MOUTH 1 CAPSULE IN THE MORNING. DO NOT CUT, CRUSH, OR CHEW.. Patient has chronic hyponatremia. Avoid HCTZ noted at last OV, Patient on Furosemide. Please approve if appropriate. Thank you, Lidya Bruno [facility] Clinical Pharmacist [facility] ([facility]) (formerly Telepharmacy) 09/29/22 11:35 AM [phone] * Telephone Encounter - Lidya Bruno RPh - 09/29/2022 11:33 AM EDT Did you pend patient's preferred pharmacy and medication before forwarding?yes Pharmacy: [id number] [address] [facility] Pending Prescriptions: Disp Refills Venlafaxine HCl ER 150 MG Oral Capsule Ex*90 Cap*1 Sig: TAKE BY MOUTH 1 CAPSULE IN THE MORNING. DO NOT CUT, CRUSH, OR CHEW.. Last Visit: 09/17/2022 (in office), Visit date not found (telemedicine) Next Visit: 01/28/2023 If no future appointments scheduled, and last appointment is greater than a year ago, please schedule patient for a follow-up appointment Last date the medication was ordered: 06/10/22 Is this request for a controlled substance?No Urine Drug Screen:No results found for this or any previous visit. Patient Phone Numbers Labs: Lab Results Component Value Date/Time CREAT 0.9 07/11/2022 01:21 PM CREAT 0.7 10/03/2019 02:36 PM POTASSIUM 4.9 07/11/2022 01:21 PM POTASSIUM 4.7 10/03/2019 02:36 PM TSH 2.39 11/19/2021 02:39 PM TSH 1.70 09/21/2019 01:36 PM LDLCALC 107 11/19/2021 02:39 PM LDLCALC 86 09/14/2019 02:40 PM LDLDIRECT NOT APPLICABLE 09/14/2019 02:40 PM ALT 28 05/31/2021 01:01 PM ALT 19 09/14/2019 02:40 PM documented in this encounter Plan of Treatment Upcoming Encounters Date Type Specialty Care Team Description 11/14/2022 Cardiac Studies Cardiac Studies 01/28/2023 Office Visit Family Medicine Leila Quiñones, DO [address] [place] [address] Scheduled Procedures Name Priority Associated Diagnoses Date/Ti me COLONOSCOPY FLEXIBLE PROXIMAL DIAGNOSTIC Recall History of colon polyps Health Maintenance Due Date Last Done Comments LUNG CANCER SCREENING - USE SMARTSET 24760 05/07/2001 Zoster Vaccines (2 of 3) 03/17/2013 [...] D LEVEL ONCE IN A LIFETIME-USE SMARTSET# [id number] Completed 01/05/2018, 11/22/2012 Pneumococcal Vaccine: 65+ Years [...] as of this encounter Visit Diagnoses Diagnosis Moderate episode of recurrent major depressive disorder (HCC) documented in this encounter Care Teams Md Allergy Immunology Relationship Specialty Start Date End Date Leila Quiñones, [address] [place] [address] PCP - General Family Medicine 05/20/18 documented as of this encounter
--- OUTSIDE RECORDS SUMMARY | 2023-01-13 19:35 | External Medical Summary | Summary of Care ---
Author Name Unknown Organization [facility] Address [address] [facility] [place] [address] Phone [phone] Care Team Providers Care Clinical Nurse Educator Name Role Phone Demetra Bowman DO Primary Care Provider [phone] Reason for Visit * Reason Onset Date Comments Advice 09/17/2022 Encounter Details Date Type Department Care Team Description 09/17/2022 Telephone [facility] [address] [place] [address] Demetra Bowman DO [address] [place] [address] Advice Allergies Active Allergy Reactions Severity Noted Date Comments Pollen 11/03/2017 Nickel Rash 11/03/2017 documented as of this encounter (statuses as of 09/17/2022) Medications Medication Sig Dispensed Refills Start Date [...] as of this encounter (statuses as of 09/17/2022) Active Problems Problem Noted Date Gastro-esophageal reflux disease without esophagitis 12/05/2021 Food insecurity 06/10/2021 Overview: Per [facility] Protocol Alcohol consumption of more [...] as of this encounter (statuses as of 09/17/2022) Resolved Problems Problem Noted Date Resolved Date [...] as of this encounter (statuses as of 09/17/2022) Immunizations Name Administration Dates Next Due COVID-19 [...] encounter Miscellaneous Notes * Telephone Encounter - Kylah Fuentes LPN - 09/17/2022 4:17 PM EDT Provider to address: NA Reason for Call: Advice Contact: Telephone Call Contact Type: Care Coordination Outcome: Left message on Akiko's ph # [phone] to remind of appt today. Call back number left as well. Total Time including non face to face (minutes): 5 * Telephone Encounter - Demetra Bowman DO - 09/17/2022 4:01 PM EDT She has an appt today Make sure she is aware of that * Telephone Encounter - Sulma Maharaj LPN - 09/17/2022 3:56 PM EDT Is this something you would like to set up as a video appt? * Telephone Encounter - JAXON Fuentes - 09/17/2022 3:36 PM EDT Pts daughter and poa wants to speak to the pts pcp about her current condition and what can be donefor the pt.She advised that the pt has been falling weekly and is not steady on her feet.Please contact the pt back in regards to this matter yanna. Akiko: [phone] documented in this encounter Plan of Treatment Upcoming Encounters Date Type Specialty Care Team Description 09/17/2022 Office Visit Family Medicine Ivan Beltre MD [address] [place] [id number] 01/28/2023 Office Visit Family Medicine Demetra Bowman DO [address] [place] [phone] Scheduled Procedures Name Priority Associated Diagnoses Date/Ti me COLONOSCOPY FLEXIBLE PROXIMAL DIAGNOSTIC Recall History of colon polyps Health Maintenance Due Date Last Done Comments LUNG CANCER SCREENING - USE SMARTSET 90435 05/07/2001 Zoster Vaccines (2 of 3) 03/17/2013 01/20/2013 Mammogram 09/28/2020 09/29/2019, 05/31, 07/03/2015, Additional history exists COVID-19 Vaccine (4 - Pfizer series) 04/30/2021 03/05/2021, 06/28/2020, 06/07/2020 Depression Screening, Annual for Pts 12 and Over 05/31/2022 05/31/2021 DTaP,Tdap,and Td Vaccines (2 - Td or Tdap) 06/21/2022 06/21/2012 Influenza Vaccine (FLU shot) (#1) 2022 12/05/2021, 01/09/2021, 11/12/2019, Additional history exists COLONOSCOPY-EVERY 5 YRS AGES 18-100 11/12/2022 11/12/2017, 11/12/2017 TSH 11/19/2022 11/19/2021, 09/30, 09/21/2019, Additional history exists GFR 07/12/2023 07/11/2022, 10/0 07/2021, 05/31/2021, Additional history exists Albumin/Creatinine Ratio 05/31/2024 05/31/2021 DXA Scan 08/04/2025 08/04/2018 Lipid Panel 11/19/2026 11/19/2021, 09/30, 09/14/2019, Additional history exists Pneumococcal Vaccine: 65+ Years Completed 09/21/2019, 12/13/2018, [...] filedocumented as of this encounter Care Teams Clinical Nurse Educator Relationship Specialty Start Date End Date Demetra Bowman, [address] [place] [address] PCP - General Family Medicine 05/20/18 documented as of this encounter
--- OUTSIDE RECORDS SUMMARY | 2023-01-13 19:35 | External Medical Summary | Summary of Care ---
Author Name Unknown Organization [facility] Address [address] [place] [address] Phone [phone] Care Team Providers Care Case Filler Name Role Phone Razacarolyn Demetra Brien DIXON Primary Care Provider + [phone] Reason for Referral * Precert (Within 24 hrs (call dept; emergent)) - Pending Review Specialty Diagnoses / Procedures Referred By Contac t Referred To Contact Radiology Diagnoses Fall, initial encounter Procedures CT HEAD/BRAIN WO CONTRAST CT HEAD/BRAIN WO CONTRAST Ivan Beltre MD [address] [place] [address] Referral ID Status Reason Start Date Expiration Date V isits Requested Visits Authorized [id number] Pending Review 09/17/2022 999 999 * Precert (Within 10 days (routine)) - Authorized Specialty Diagnoses / Procedures Referred By Contac t Referred To Contact Cardiac Studies Diagnoses Leg swelling Procedures ECHO, COMPLETE (2D), TRANS-THORACIC Ivan Beltre MD [address] [place] [address] Referral ID Status Reason Start Date Expiration Date V isits Requested Visits Authorized [id number] Authorized Precert 09/17/2022 999 999 Reason for Visit * Reason Comments Acute Swollen ankle ongoin g since last week Encounter Details Date Type Department Care Team Description 09/17/2022 Office Visit [facility] [address] [place] [address] Ivan Beltre MD [address] [place] [address] Fall, initial encounter*; Alcohol abuse; Leg swelling; Moderate episode of recurrent major depressive disorder (HCC); Osteoporosis, unspecified osteoporosis type, unspecified pathological fracture presence; Gastro-esophageal reflux disease without esophagitis; HTN, goal below 140/90 Allergies Active Allergy Reactions Severity Noted Date [...] of 09/17/2022) Active Problems Problem Noted Date Age-related osteoporosis without current pathological fracture 09/17/2022 Gastro-esophageal reflux disease without esophagitis 12/05/2021 Food insecurity 06/10/2021 Overview: Per [facility] Protocol Alcohol consumption of more [...] Sign Reading Time Taken Comments Blood Pressure 150/75 09/17/2022 4:51 PM EDT Pulse 89 09/17/2022 4:51 PM EDT Temperature 36.5 C (97.7 F) 09/17/2022 4:51 PM ED T Respiratory Rate 16 09/17/2022 4:51 PM EDT Oxygen Saturation 98% 09/17/2022 4:51 PM EDT Inhaled Oxygen Concentration - - Weight 72.9 kg (160 lb 12.8 oz) 09/17/2022 4:51 PM EDT Height 165.1 cm (5' 5") 09/17/2022 4:51 PM EDT Body Mass Index 26.76 09/17/2022 4:51 PM EDT documented in this encounter Progress Notes * Ivan Beltre MD - 09/17/2022 6:23 PM EDT Images from the original note were not included. Assessment and Plan 1. Fall, initial encounter Fall on 09/15/2022. Neurovascularly intact in the office. Significant ecchymosis and edema of the occiput which clearly indicate some head trauma. Stat CT to rule out intracranial hemorrhage. - CT HEAD/BRAIN WO CONTRAST 2. Alcohol abuse Significant alcohol use history currently drinking 12-15 beers per day per patient's daughter. Daughter requesting any assistance with alcohol cessation given this is impacting the patient's safety living at home independently. We will discuss with patient's PCP as this is the 1st time I am meetingthe patient. Consider office of aging referral. 3. Leg swelling Multifactorial with amlodipine, stasis, potential liver failure contributing. Rule out cardiac cause with echocardiogram. Increase Lasix to 40 mg daily until swelling has improved. - CBC; Future - COMPREHENSIVE METABOLIC PANEL; Future - ECHO, COMPLETE (2D), TRANS-THORACIC; Future 4. Moderate episode of recurrent major depressive disorder (HCC) On Effexor. 5. Osteoporosis, unspecified osteoporosis type, unspecified pathological fracture presence 6. Gastro-esophageal reflux disease without esophagitis 7. HTN, goal below 140/90 Blood pressure 150/75. She does have a history of stroke. Would prefer blood pressure significantlylower. Avoid hydrochlorothiazide given chronic hyponatremia. Consider beta-tejinder and discontinuation of amlodipine to help with swelling. Wrap-Up Stat CT scan to rule out hemorrhage. History of Present Illness 72-year-old female who presents with multiple complaints. Daughter is present at the visit. Patient's main complaint is leg swelling. This has been intermittent over the last number of months. She was previously taking Lasix 20 mg daily as needed to assist in symptoms. This was providing relief. Over the last week she is had worsening swelling bilaterally. There is no erythema or pain. She is been taking 20 mg of Lasix without significant improvement. She is currently taking amlodipine for blood pressure control. Her blood pressure in office today is elevated at 150/75. She is currently on losartan. Hydrochlorothiazide does not seem to be great option as she also has a history of alcohol abuse and chronic hyponatremia. Patient had significant ecchymosis and swelling on the right occiput. She endorses a fall on 09/15/2022. She denies head trauma, however, this can not be the case given the extensive ecchymosis at the base of the skull. The patient's daughter saw the patient prior to this fall and there was no ecchymosis at that time. No neurologic changes. No confusion. Patient brandy murphy is at baseline. Patient's daughter also has significant concerns about the patient's well-beingin her alcohol abuse. She currently drinks 12-15 beers a day. She is struggling at home with activities of daily living as a result of this alcohol use. 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 He also has alcohol use issues. Patient's daughter is wondering if there is any assistance to be provided to her mother. Physical Exam Vitals: 09/17/22 1651 Temp: 36.5 C (97.7 F) Pulse: 89 Resp: 16 SpO2: 98% BP: 150/75 BMI: 26.76 Physical Exam Physical Exam Vitals reviewed. Constitutional: General: She is not in acute distress. Cardiovascular: Rate and Rhythm: Normal rate and regular rhythm. Heart sounds: No murmur heard. Pulmonary: Effort: Pulmonary effort is normal. No respiratory distress. Breath sounds: Normal breath sounds. No wheezing. Skin: Comments: Significant ecchymosis and possible hematoma at the right occiput. Neurological: Mental Status: She is alert. Comments: Cranial nerves 2-12 grossly intact. Patient is ambulating without difficulty. She has normal speech pattern. No weakness. Time: I spent a total of 40-54 minutes (exact time 42 mins) on the date of service in preparation, delivery, and documentation of the care provided to the patient excluding any time spent in the performance of separately billed services. documented in this encounter Nursing Notes * SID Hines - 09/17/2022 4:51 PM EDT Mary Ellen Teresa is a 72 year old female who presents today for Chief Complaint Patient presents with Acute Swollen ankle ongoing since last night documented in this encounter Plan of Treatment Upcoming Encounters Date Type Specialty Care Team Description 09/19/2022 Imaging Radiology 11/14/2022 Cardiac Studies Cardiac Studies 01/28/2023 Office Visit Family Medicine Demetra Bowman, [address] [place] [address] Scheduled Orders Name Type Priority Associated Diagnoses Orde r Schedule CBC Lab Routine Leg swelling Expected: 09/17/2022 (Approximate), Expires: 09/17/2023 COMPREHENSIVE METABOLIC PANEL Lab Routine Leg swelling Expected: 09/17/2022 (Approximate), Expires: 09/17/2023 ECHO, COMPLETE (2D), TRANS-THORACIC Echocardiology Routine Leg swelling Expected: 09/17/2022, Expires: 10/18/2024 CT HEAD/BRAIN WO CONTRAST Medical Imaging STAT Fall, initial encounter Ordered: 09/17/2022 Scheduled Procedures Name Priority Associated Diagnoses Date/Ti me COLONOSCOPY FLEXIBLE PROXIMAL DIAGNOSTIC Recall History of colon polyps Health Maintenance Due Date Last Done Comments LUNG CANCER SCREENING - USE SMARTSET 08019 05/07/2001 Zoster Vaccines (2 of 3) 03/17/2013 [...] as of this encounter Visit Diagnoses Diagnosis Fall, initial encounter- Primary Alcohol abuse Alcohol abuse, unspecified Leg swelling Swelling of limb Moderate episode of recurrent major depressive disorder (HCC) Osteoporosis, unspecified osteoporosis type, unspecified pathological fracture presence Gastro-esophageal reflux disease without esophagitis Esophageal reflux HTN, goal below 140/90 Unspecified essential hypertension documented in this encounter Care Teams Case Filler Relationship Specialty Start Date End Date Demetra Bowman, DO [address] [place] [address] PCP - General Family Medicine 05/20/18 documented as of this encounter
--- OUTSIDE RECORDS SUMMARY | 2023-01-13 19:35 | External Medical Summary | Summary of Care ---
Author Name Unknown Organization [facility] Address [address] [facility] [place] [address] Phone [phone] Care Team Providers Care Radiology Interventional Physician Name Role Phone Leila Quiñones DO Primary Care Provider [phone] Encounter Details Date Type Department Care Team Description 09/29/2022 Refill [facility] [address] [place] [address] Leila Quiñones DO [address] [place] [address] Bilateral leg edema Allergies Active Allergy Reactions Severity Noted Date [...] 08/26/2022 Active Furosemide 20 MG Oral Tablet (Lasix)Indicatio ns:Bilateral leg edema TAKE ONE TABLET BY MOUTH ONCE DAILY NEEDED (FOR SWELLING IN THE LEGS), FOR FLUID ACCUMULATION OR WEIGHT GAIN. 90 Tablet 3 09/29/2022 Active Furosemide 20 MG Oral Tablet (Lasix)Indicatio ns:Bilateral leg edema TAKE ONE TABLET BY MOUTH ONCE DAILY NEEDED (FOR SWELLING IN THE LEGS), FOR FLUID ACCUMULATION OR WEIGHT GAIN. 30 Tablet 4 09/05/2022 3 Discontinued documented as of this encounter (statuses as of 09/29/2022) Active Problems Problem Noted Date Age-related osteoporosis without current pathological fracture 09/17/2022 Gastro-esophageal reflux disease without esophagitis 12/05/2021 Food insecurity 06/10/2021 Overview: Per [facility] Protocol Alcohol consumption of more than [...] 09/29/2022 12:28 PM EDTSigned Prescriptions: Disp Refills Furosemide 20 MG Oral Tablet (Lasix) 90 Tab*3 Sig: TAKE ONE TABLET BY MOUTH ONCE DAILY NEEDED (FOR SWELLING IN THE LEGS), FOR FLUID ACCUMULATION OR WEIGHT GAIN.Authorizing Provider: LEILA QUIÑONES documented in this encounter Plan of Treatment Upcoming Encounters Date Type Specialty Care Team Description 11/14/2022 Cardiac Studies Cardiac Studies 01/28/2023 Office Visit Family Medicine Leila Quiñones DO [address] [place] [address] Scheduled Procedures Name Priority Associated Diagnoses Date/Ti me COLONOSCOPY FLEXIBLE PROXIMAL DIAGNOSTIC Recall History of colon polyps Health Maintenance Due Date Last Done Comments LUNG CANCER SCREENING - USE SMARTSET 10524 05/07/2001 Zoster Vaccines (2 of 3) 03/17/2013 [...] Ratio 05/31/2024 05/31/2021 Lipid Panel 11/19/2026 11/19/2021, 0808/2020, 09/14/2019, Additional history exists VITAMIN D LEVEL ONCE IN A LIFETIME-USE SMARTSET# 25925 Completed 01/05/2018, 11/22/2012 Pneumococcal Vaccine: 65+ Years [...] this encounter Visit Diagnoses Diagnosis Bilateral leg edema Edema documented in this encounter Care Teams Radiology Interventional Physician Relationship Specialty Start Date End Date Leila Quiñones, [address] [place] [address] PCP - General Family Medicine 05/20/18 documented as of this encounter
--- OUTSIDE RECORDS SUMMARY | 2023-01-13 19:35 | External Medical Summary | Summary of Care ---
Author Name Unknown Organization [facility] Address [address] [place] [address] Phone [phone] Care Team Providers Care Surveyor Instrument Assistant Name Role Phone Demetra Bowman DO Primary Care Provider [phone] Reason for Visit * Reason Onset Date Comments case management 09/19/2022 Encounter Details Date Type Department Care Team Description 09/19/2022 Telephone Care Coordination [address] [place] [address] Cassandra Thompson, MS [address], [place] [id number] case management Allergies Active Allergy Reactions Severity Noted Date Comments Pollen 11/03/2017 Nickel Rash 11/03/2017 documented as of this encounter (statuses as of 09/22/2022) Medications Medication Sig Dispensed Refills Start Date [...] as of this encounter (statuses as of 09/22/2022) Active Problems Problem Noted Date Age-related osteoporosis without current pathological fracture 09/17/2022 Gastro-esophageal reflux disease without esophagitis 12/05/2021 Food insecurity 06/10/2021 Overview: Per [facility] Protocol Alcohol consumption of more than [...] as of this encounter (statuses as of 09/22/2022) Resolved Problems Problem Noted Date Resolved Date [...] as of this encounter (statuses as of 09/22/2022) Immunizations Name Administration Dates Next Due COVID-19 [...] encounter Miscellaneous Notes * Telephone Encounter - Cassandra Thompson, MS - 09/22/2022 8:23 AM EDT 09/19 Call to Mary Ellen MORALES started to explain reason for call. Mary Ellen said they were just getting to an appointment at [facility] and would like to call back when she is finished. documented in this encounter Plan of Treatment Upcoming Encounters Date Type Specialty Care Team Description 11/14/2022 Cardiac Studies Cardiac Studies 01/28/2023 Office Visit Family Medicine Demetra Bowman, DO [address] [place] [address] Scheduled Procedures Name Priority Associated Diagnoses Date/Ti me COLONOSCOPY FLEXIBLE PROXIMAL DIAGNOSTIC Recall History of colon polyps Health Maintenance Due Date Last Done Comments LUNG CANCER SCREENING - USE SMARTSET 16490 05/07/2001 Zoster Vaccines (2 of 3) 03/17/2013 [...] D LEVEL ONCE IN A LIFETIME-USE SMARTSET# 56815 Completed 01/05/2018, 11/22/2012 Pneumococcal Vaccine: 65+ Years [...] filedocumented as of this encounter Care Teams Surveyor Instrument Assistant Relationship Specialty Start Date End Date Demetra Bowman, [address] [place] [address] PCP - General Family Medicine 05/20/18 documented as of this encounter
--- OUTSIDE RECORDS SUMMARY | 2023-01-13 19:35 | External Medical Summary | Summary of Care ---
Author Name Unknown Organization [facility] Address [address] [facility] [address] Phone [phone] Care Team Providers Care Technical Coordinator Name Role Phone Demetra Bowman DO Primary Care Provider [phone] Reason for Visit * Reason Onset Date Comments Advice 09/08/2022 Leg swelling Encounter Details Date Type Department Care Team Description 09/08/2022 Telephone [facility] [address] [place] [address] Demetra Bowman DO [address] [place] [address] Advice (Leg swelling ) Allergies Active Allergy Reactions Severity Noted Date Comments Pollen 11/03/2017 Nickel Rash 11/03/2017 documented as of this encounter (statuses as of 09/11/2022) Medications Medication Sig Dispensed Refills Start Date [...] as of this encounter (statuses as of 09/11/2022) Active Problems Problem Noted Date Gastro-esophageal reflux disease without esophagitis 12/05/2021 Food insecurity 06/10/2021 Overview: Per [facility] Protocol Alcohol consumption of more [...] as of this encounter (statuses as of 09/11/2022) Resolved Problems Problem Noted Date Resolved Date Fracture of proximal end of right humerus with routine healing 06/04/2020 05/27/2022 Overview: Noted in 2020 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 09/11/2022 * Telephone Encounter - Milli Elizabeth LPN - 09/11/2022 2:52 PM EDT Please call patient and offer acute visit or urgent care * Telephone Encounter - JAXON Ewing - 09/11/2022 2:00 PM EDT Pt is calling, ( also see Triage enc on 09/10/2022) pt is having swelling of right leg. Should she increase her her lasix medication? She states her leg is tender to touch, she feels uncomfortable, noredness, no warmness. Pt is asking to be advised. * Telephone Encounter - JAXON Ross - 09/08/2022 2:49 PM EDT Patient calling states that over the last few days her dieretic is not helping, wondering what she can do if she should take an additional half of a pill or if something else should be prescribed. documented in this encounter Plan of Treatment Upcoming Encounters Date Type Specialty Care Team Description 01/28/2023 Office Visit Family Medicine Demetra Bowman, DO [address] [place] [address] Scheduled Procedures Name Priority Associated Diagnoses Date/Ti me COLONOSCOPY FLEXIBLE PROXIMAL DIAGNOSTIC Recall History of colon polyps Health Maintenance Due Date Last Done Comments LUNG CANCER SCREENING - USE SMARTSET 18348 05/07/2001 Zoster Vaccines (2 of 3) 03/17/2013 [...] filedocumented as of this encounter Care Teams Technical Coordinator Relationship Specialty Start Date End Date Demetra Bowman, [address] [place] [address] PCP - General Family Medicine 05/20/18 documented as of this encounter
--- OUTSIDE RECORDS SUMMARY | 2023-01-13 19:35 | External Medical Summary | Summary of Care ---
Author Name Unknown Organization [facility] Address [address] [facility] [place] [address] Phone [phone] Care Team Providers Care Supervisor [place] Name Role Phone Demetra Bowman DO Primary Care Provider + [phone] Reason for Visit * Reason Onset Date Comments Advice 09/17/2022 Encounter Details Date Type Department Care Team Description 09/17/2022 Telephone [facility] [address] [place] [address] Demetra Bowman DO [address] [place] [address] Advice Allergies Active Allergy Reactions [...] esophagitis 12/05/2021 Food insecurity 06/10/2021 Overview: Per [facility] Protocol Alcohol consumption of more [...] Outcome: Left message on Akiko's ph # [phone] to remind of appt today. Call back [...] in regards to this matter yanna. Akiko: [phone] documented in this encounter Plan of Treatment Upcoming Encounters Date Type Specialty Care Team Description 09/17/2022 Office Visit Family Medicine Ivan Beltre MD [address] [id number] 01/28/2023 Office Visit Family Medicine Demetra Bowman DO [address] [place] [id number] Scheduled Procedures Name Priority Associated Diagnoses Date/Ti me COLONOSCOPY FLEXIBLE PROXIMAL DIAGNOSTIC Recall History of colon polyps Health Maintenance Due Date Last Done Comments LUNG CANCER SCREENING - USE SMARTSET 65919 05/07/2001 Zoster Vaccines (2 of 3) 03/17/2013 [...] filedocumented as of this encounter Care Teams Supervisor [place] Relationship Specialty Start Date End Date Demetra Bowman, [address] [place] [address] PCP - General Family Medicine 05/20/18 documented as of this encounter
--- OUTSIDE RECORDS SUMMARY | 2023-01-13 19:36 | External Medical Summary | Summary of Care ---
Author Name Unknown Organization [facility] Address [address] [facility] [place] [address] Phone [phone] Care Team Providers Care Equipment Engineering Technician Name Role Phone Leila uQiñones DO Primary Care Provider [phone] Reason for Visit * Reason Comments eRx-Medication Refill Encounter Details Date Type Department Care Team Description 07/14/2022 Refill [facility] [address] [place] [address] Leila Quiñones DO [address] [place] [address] Acute alcoholic gastritis without hemorrhage Allergies Active Allergy Reactions Severity Noted Date Comments Pollen 11/03/2017 Nickel Rash 11/03/2017 documented as of this encounter (statuses as of 07/14/2022) Medications Medication Sig Dispensed Refills Start Date End Date Status zoster vac recomb adjuvanted (SHINGRIX) 50 MCG/0.5ML injection Inject 0.5 mL into a large muscle now and repeat dose in 60 to 180 days 1 Each 1 11/11/2019 Active Acetaminophen 325 MG Oral Tablet (Tylenol) Take 2 Tablets by mouth every 6 hours as needed. 0 08/01/2021 Active amLODIPine Besylate 5 MG Oral Tablet (Norvasc) Take by mouth 1 Tablet in the morning. 90 Tablet 3 08/28/2021 Active Fluocinolone Acetonide 0.025 % External OintmentIndicatio [...] OR CHEW 90 Tablet 1 07/14/2022 Active Pantoprazole Sodium 20 MG Oral Tablet Delayed Release (Protonix)Indicat ions:Acute alcoholic gastritis without hemorrhage TAKE 1 TABLET BY MOUTH EVERY MORNING 30 MINUTES PRIOR TO BREAKFAST. DO NOT CUT, CRUSH, OR CHEW 90 Tablet 1 01/16/2022 3 Discontinued documented as of this encounter (statuses as of 07/14/2022) Active Problems Problem Noted Date Gastro-esophageal reflux disease without esophagitis 12/05/2021 Food insecurity 06/10/2021 Overview: Per [facility] Protocol Alcohol consumption of more [...] as of this encounter (statuses as of 07/14/2022) Resolved Problems Problem Noted Date Resolved Date [...] as of this encounter (statuses as of 07/14/2022) Immunizations Name Administration Dates Next Due COVID-19 [...] encounter Miscellaneous Notes * Telephone Encounter - Peggy Verma, [facility] - 07/14/2022 4:13 PM EDTSigned Prescriptions: Disp Refills Pantoprazole Sodium 20 MG Oral Tablet Ayala*90 Tab*1 Sig: TAKE 1 TABLET BY MOUTH EVERY MORNING 30 MINUTES PRIOR TO BREAKFAST. DO NOT CUT, CRUSH, OR CHEWAuthorizing Provider: LEILA QUIÑONES User: PEGGY VERMA documented in this encounter Plan of Treatment Upcoming Encounters Date Type Specialty Care Team Description 01/28/2023 Office Visit Family Medicine Leila Quiñones DO [address] [place] [address] Scheduled Procedures Name Priority Associated Diagnoses Date/Ti me COLONOSCOPY FLEXIBLE PROXIMAL DIAGNOSTIC Recall History of colon polyps Health Maintenance Due Date Last Done Comments LUNG CANCER SCREENING - USE SMARTSET 68177 05/07/2001 Zoster Vaccines (2 of 3) 03/17/2013 01/20/2013 Mammogram 09/28/2020 09/29/2019, 05/31, 07/03/2015, Additional history exists COVID-19 Vaccine (4 - Booster for Pfizer series) 04/30/2021 03/05/2021, 06/28/2020, 06/07/2020 Depression Screening, Annual for Pts 12 and Over 05/31/2022 05/31/2021 DTaP,Tdap,and Td Vaccines (2 - Td or Tdap) 06/21/2022 06/21/2012 COLONOSCOPY-EVERY 5 YRS AGES 18-100 11/12/2022 11/12/2017, 11/12/2017 TSH FOR THYROID MEDICATION MONITORING YEARLY 11/19/2022 11/19/2021, 10/16/2020, 09/21/2019, Additional history exists GFR - Renal Function 07/12/2023 07/11/2022, 12/05/2021, 05/31/2021, Additional history exists Albumin/Creatinine Ratio 05/31/2024 05/31/2021 DXA Scan 08/04/2025 08/04/2018 Lipid Panel 11/19/2026 11/19/2021, 09/30, 09/14/2019, Additional history exists Pneumococcal Vaccine: 65+ Years Completed 09/21/2019, 12/13/2018, 11/26/2016 Influenza Vaccine (FLU shot) Completed 07/2021, 01/09/2021, 11/12/2019, Additional history exists GARDASIL-HPV IMMUNIZATION SERIES Aged Out No longer [...] as of this encounter Visit Diagnoses Diagnosis Acute alcoholic gastritis without hemorrhage documented in this encounter Care Teams Equipment Engineering Technician Relationship Specialty Start Date End Date Leila Quiñones, [address] [place] [address] PCP - General Family Medicine 05/20/18 documented as of this encounter
--- OUTSIDE RECORDS SUMMARY | 2023-01-13 19:36 | External Medical Summary | Summary of Care ---
Author Name Unknown Organization [facility] Address [address] [facility] [place] [address] Phone [phone] Care Team Providers Care Manager Mountain Name Role Phone Demetra Bowman DO Primary Care Provider + [phone] Reason for Visit * Reason Onset Date Comments Med Request 09/03/2022 Encounter Details Date Type Department Care Team Description 09/03/2022 Telephone [facility] [address] [place] [address] Demetra Bowman DO [address] [place] [address] Med Request Allergies Active Allergy Reactions Severity Noted Date Comments Pollen 11/03/2017 Nickel Rash 11/03/2017 documented as of this encounter (statuses as of 09/05/2022) Medications Medication Sig Dispensed Refills Start Date [...] as of this encounter (statuses as of 09/05/2022) Active Problems Problem Noted Date Gastro-esophageal reflux disease without esophagitis 12/05/2021 Food insecurity 06/10/2021 Overview: Per [facility] Protocol Alcohol consumption of more [...] as of this encounter (statuses as of 09/05/2022) Resolved Problems Problem Noted Date Resolved Date [...] as of this encounter (statuses as of 09/05/2022) Immunizations Name Administration Dates Next Due COVID-19 [...] encounter Miscellaneous Notes * Telephone Encounter - Korin Syed CPhT - 09/03/2022 3:12 PM EDT Patient requesting refills for furosemide (LASIX) 20 MG Tablet . Upon chart review, medication is listed as discontinued, with discontinuation reason as "none ". Please advise if you wish to continuethis therapy , patient needs for swelling of ankle and feet wants order today Thank you, Korin Syed Assistant Professor II [facility] ([facility]) 09/03/2022 3:13 PM documented in this encounter Plan of Treatment Upcoming Encounters Date Type Specialty Care Team Description 01/28/2023 Office Visit Family Medicine Demetra Bowman, DO [address] [place] [address] Scheduled Procedures Name Priority Associated Diagnoses Date/Ti me COLONOSCOPY FLEXIBLE PROXIMAL DIAGNOSTIC Recall History of colon polyps Health Maintenance Due Date Last Done Comments LUNG CANCER SCREENING - USE SMARTSET 65622 05/07/2001 Zoster Vaccines (2 of 3) 03/17/2013 [...] Edema documented in this encounter Care Teams Manager [place] Relationship Specialty Start Date End Date Demetra Bowman, DO [address] [place] [address] PCP - General Family Medicine 05/20/18 documented as of this encounter
--- OUTSIDE RECORDS SUMMARY | 2023-01-13 19:36 | External Medical Summary | Summary of Care ---
Author Name Unknown Organization [facility] Address [address] [facility] [place] [address] Phone [phone] Care Team Providers Care Finish Patcher Name Role Phone Leila Quiñones DO Primary Care Provider + [phone] Reason for Visit * Reason Comments eRx-Medication Refill Encounter Details Date Type Department Care Team Description 08/26/2022 Refill [facility] [address] [place] [address] Leila Quiñones DO [address] [place] [address] Allergies Active Allergy Reactions Severity Noted Date Comments Pollen 11/03/2017 Nickel Rash 11/03/2017 documented as of this encounter (statuses as of 08/26/2022) Medications Medication Sig Dispensed Refills Start Date [...] THE MORNING 90 Tablet 3 08/26/2022 Active amLODIPine Besylate 5 MG Oral Tablet (Norvasc) Take by mouth 1 Tablet in the morning. 90 Tablet 3 08/28/2021 3 Discontinued documented as of this encounter (statuses as of 08/26/2022) Active Problems Problem Noted Date Gastro-esophageal reflux disease without esophagitis 12/05/2021 Food insecurity 06/10/2021 Overview: Per [facility] Protocol Alcohol consumption of more than [...] as of this encounter (statuses as of 08/26/2022) Resolved Problems Problem Noted Date Resolved Date [...] as of this encounter (statuses as of 08/26/2022) Immunizations Name Administration Dates Next Due COVID-19 [...] encounter Miscellaneous Notes * Telephone Encounter - Sanchez Lima RPh - 08/26/2022 3:17 PM EDT Signed Prescriptions: Disp Refills amLODIPine Besylate 5 MG Oral Tablet (Norv*90 Tab*3 Sig: TAKE 1 TABLET BY MOUTH EVERY DAY IN THE MORNINGAuthorizing Provider: LEILA QUIÑONES User: SANCHEZ LIMA Electronically signed by Sanchez Lima [facility] at 08/26/2022 3:17 PM EDT documented in this encounter Plan of Treatment Upcoming Encounters Date Type Specialty Care Team Description 01/28/2023 Office Visit Family Medicine Leila Quiñones, DO [address] [place] [address] Scheduled Procedures Name Priority Associated Diagnoses Date/Ti me COLONOSCOPY FLEXIBLE PROXIMAL DIAGNOSTIC Recall History of colon polyps Health Maintenance Due Date Last Done Comments LUNG CANCER SCREENING - USE SMARTSET 19030 05/07/2001 Zoster Vaccines (2 of 3) 03/17/2013 [...] filedocumented as of this encounter Care Teams Finish Patcher Relationship Specialty Start Date End Date Leila Quiñones, [address] [place] [address] PCP - General Family Medicine 05/20/18 documented as of this encounter
== END 2023-01-12 15:00 | disposition home health service (06) | DRG 641 ==
LOC: ED 18:33 → EDINP 01-10 00:13 → 2S 01-10 01:36